=== PATIENT | female | born 1980 | race Caucasian/White ===

== ENCOUNTER 2018-05-27 15:20 | Emergency (ER) | payer SELFPAY ==
[~2018-05-27] VITALS: Ht 172.7 cm; Wt 77.1 kg
[~2018-05-27 15:20] MED LIST: ALPR.5T PO; HYDR-34 PO; SLEEP AID PO
[2018-05-27] MEDS ORDERED: ONDANSETRON 4 MG/2 ML (SDV) Z0FRAN IVP ONE (16:00)
[2018-05-27 16:11] LABS: BASOPHILS % (AUTO) 0 % (0-10); EOSINOPHILS % (AUTO) 0 % (0-10); HEMATOCRIT 37 % (35-52); HEMOGLOBIN 12.4 G/DL (11.5-16.0); LYMPHOCYTES # (AUTO) 1.7 X 10^3 (1.0-4.0); LYMPHOCYTES % (AUTO) 11 % (12-44); MEAN CORPUSCULAR HEMOGLOBIN 32 PG (25-34); MEAN CORPUSCULAR HGB CONC 34 G/DL (32-36); MEAN CORPUSCULAR VOLUME 95 FL (80-99); MEAN PLATELET VOLUME 9.1 FL (7.4-10.4); MONOCYTES # (AUTO) 1.9 X 10^3 (0.0-1.0); MONOCYTES % (AUTO) 13 % (0-12); NEUTROPHILS # (AUTO) 11.2 X 10^3 (1.8-7.8); NEUTROPHILS % (AUTO) 75 % (42-75); PLATELET COUNT 303 10^3/uL (130-400); RED BLOOD COUNT 3.86 10^6/uL (4.35-5.85); RED CELL DISTRIBUTION WIDTH 12.9 % (10.0-14.5); WHITE BLOOD COUNT 14.8 10^3/uL (4.3-11.0)
[2018-05-27 16:23] LABS: BILIRUBIN,URINE NEGATIVE (NEGATIVE); CLARITY,URINE CLEAR; COLOR,URINE YELLOW; GLUCOSE, URINE (UA) NEGATIVE (NEGATIVE); KETONES,URINE NEGATIVE (NEGATIVE); LEUKOCYTE ESTERASE ,URINE 1+ (NEGATIVE); NITRITE,URINE NEGATIVE (NEGATIVE); PH,URINE 7 (5-9); PROTEIN,URINE NEGATIVE (NEGATIVE); UROBILINOGEN,URINE NORMAL (NORMAL)
[2018-05-27 16:23] LABS: ALANINE AMINOTRANSFERASE 33 U/L (0-55); ALBUMIN 3.9 GM/DL (3.2-4.5); ALKALINE PHOSPHATASE 76 U/L (40-136); BILIRUBIN,TOTAL 0.3 MG/DL (0.1-1.0); BUN/CREATININE RATIO 19; CALCIUM 9.2 MG/DL (8.5-10.1); CARBON DIOXIDE 25 MMOL/L (21-32); CHLORIDE 102 MMOL/L (98-107); CREATININE SERUM 0.69 MG/DL (0.60-1.30); GFR ESTIMATED > 60; GLUCOSE 94 MG/DL (70-105); LIPASE 13 U/L (8-78); POTASSIUM 3.8 MMOL/L (3.6-5.0); SODIUM 138 MMOL/L (135-145); TOTAL PROTEIN 7.1 GM/DL (6.4-8.2)
[2018-05-27 16:25] LABS: BAND NEUTROPHILS 1 %; BASOPHILS % (MANUAL) 0 %; EOSINOPHILS % (MANUAL) 0 %; LYMPHOCYTES % (MANUAL) 18 %; MONOCYTES % (MANUAL) 3 %; NEUTROPHILS % (MANUAL) 78 %; RBC MORPH NORMAL
--- NOTE | 2018-05-27 16:28 | ED Abdominal Pain ---
General Chief Complaint: -Female Stated Complaint: B/P HIGH, STOMACH PAIN, RT SIDE PAIN Nursing Triage Note: Pt ambulated to rm 5 w/o difficulty. Pt reports R sided abdominal pain that begain Sat accompanied by fever. Pt c/o nausea but not vomiting. Pt reports painful urination. Pt reports BP dysregulation. Tylenol last taken at 1000 Sepsis Screen: No Definite Risk History of Present Illness Date Seen by Provider: May 27, 2018 Time Seen by Provider: 16:00 Initial Comments 37-year-old female presents for 3 day history of right sided abdominal pain with dysuria. She describes some nausea but no vomiting or diarrhea. She has a history of endometriosis and cholecystectomy. Timing/Duration: 3-4 Days Severity/Quality: Moderate Location: RLQ Radiation: No Radiation Associated Symptoms: No Back Pain, No Fever/Chills, No Fatigue; Nausea/Vomiting ; No Swelling/Mass in Abdomen, No Weakness Allergies and Home Medications Allergies Coded Allergies: No Known Drug Allergies (Unverified , 12/10/12) Home Medications Alprazolam 0.5 Mg Tablet, 1 TAB PO HS PRN, (Reported) Ciprofloxacin HCl 500 Mg Tablet, 500 MG PO BID Prescribed by: VIKTORIA SMITH on 05/27/181857 Hydrocodone Bit/Acetaminophen 1 Ea Tablet, 1-2 EA PO Q 4 - 6 HR PRN, (Reported) NEW PRESCRIPTION CALLED TO [facility] IN [facility] LAST DOSE 1TAB AT 3: 05 Tramadol HCl 50 Mg Tablet, 50 MG PO Q8H PRN for PAIN-MILD Prescribed by: VIKTORIA SMITH on 05/27/181857 [Sleep Aid] , 1 TAB PO HS, (Reported) Patient Home Medication List Home Medication List Reviewed: Yes Review of Systems Review of Systems Constitutional: no symptoms reported, see HPI Gastrointestinal: See HPI, Abdominal Pain, Nausea, Poor Appetite Genitourinary: See HPI, Burning; Denies Discharge, Denies Drainage, Denies Frequency, Denies Flank Pain, Denies Hematuria; Pain All Other Systems Reviewed Negative Unless Noted: Yes Past Zcfxugn-Bdfqjj-Iozoev Hx Past Med/Social Hx: Reviewed Nursing Past Med/Soc Hx, Reviewed and Corrections made Patient Social History Alcohol Use: Denies Use Recreational Drug Use: No Smoking Status: Current Everyday Smoker 2nd Hand Smoke Exposure: Yes Recent Foreign Travel: No Contact w/Someone Who Travel: No Recent Infectious Disease Expo: No Recent Hopitalizations: No Past Medical History Surgeries: Yes (brain (tumor, cysts)) Gallbladder Respiratory: No Cardiac: No 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 oz. 77.178278sw; BMI Method:Stated General Appearance: WD/WN, no apparent distress HEENT: PERRL/EOMI, normal ENT inspection, TMs normal, pharynx normal Neck: non-tender, full range of motion, supple, normal inspection Respiratory: chest non-tender, lungs clear, normal breath sounds Cardiovascular: normal peripheral pulses, regular rate, rhythm Gastrointestinal: normal bowel sounds, soft; No distended, No guarding, No rebound; tenderness (generalized); No hepatomegaly, No spleenomegaly; other ( negative Smith sign) Extremities: normal range of motion, non-tender, normal inspection, normal capillary refill Back: CVA tenderness (R) Neurologic/Psychiatric: no motor/sensory deficits, alert, normal mood/affect, oriented x 3 Skin: normal color, warm/dry; No jaundice Progress/Results/Core Measures Results/Orders Lab Results Laboratory Tests Test 05/27/18 15:40 05/27/18 15:45 Range/Units Urine Color YELLOW Urine Clarity CLEAR Urine pH 7 5-9 Urine Specific [place] 1.005 L 1.016-1.022 Urine Protein NEGATIVE NEGATIVE Urine Glucose (UA) NEGATIVE NEGATIVE Urine Ketones NEGATIVE NEGATIVE Urine Nitrite NEGATIVE NEGATIVE Urine Bilirubin NEGATIVE NEGATIVE Urine Urobilinogen NORMAL NORMAL MG/DL Urine Leukocyte Esterase 1+ H NEGATIVE Urine RBC (Auto) 3+ H NEGATIVE Urine RBC 0-2 /HPF Urine WBC 2-5 /HPF Urine Squamous Epithelial Cells 2-5 /HPF Urine Crystals NONE /LPF Urine Bacteria TRACE /HPF Urine Casts NONE /LPF Urine Mucus NEGATIVE /LPF Urine Culture Indicated NO Urine Test NEGATIVE NEGATIVE White Blood Count 14.8 H 4.3-11.0 10^3/uL Red Blood Count 3.86 L 4.35-5.85 10^6/uL Hemoglobin 12.4 11.5-16.0 G/DL Hematocrit 37 35-52 % Mean Corpuscular Volume 95 80-99 FL Mean Corpuscular Hemoglobin 32 25-34 PG Mean Corpuscular Hemoglobin Concent 34 32-36 G/DL Red Cell Distribution Width 12.9 10.0-14.5 % Platelet Count 303 130-400 10^3/uL Mean Platelet Volume 9.1 7.4-10.4 FL Neutrophils (%) (Auto) 75 42-75 % Lymphocytes (%) (Auto) 11 L 12-44 % Monocytes (%) (Auto) 13 H 0-12 % Eosinophils (%) (Auto) 0 0-10 % Basophils (%) (Auto) 0 0-10 % Neutrophils # (Auto) 11.2 H 1.8-7.8 X 10^3 Lymphocytes # (Auto) 1.7 1.0-4.0 X 10^3 Monocytes # (Auto) 1.9 H 0.0-1.0 X 10^3 Eosinophils # (Auto) 0.0 0.0-0.3 10^3/uL Basophils # (Auto) 0.0 0.0-0.1 10^3/uL Neutrophils % (Manual) 78 % Lymphocytes % (Manual) 18 % Monocytes % (Manual) 3 % Eosinophils % (Manual) 0 % Basophils % (Manual) 0 % Band Neutrophils 1 % Blood Morphology Comment NORMAL Sodium Level 138 135-145 MMOL/L Potassium Level 3.8 3.6-5.0 MMOL/L Chloride Level 102 98-107 MMOL/L Carbon Dioxide Level 25 21-32 MMOL/L Anion Gap 11 5-14 MMOL/L Blood Urea Nitrogen 13 7-18 MG/DL Creatinine 0.69 0.60-1.30 MG/DL Estimat Glomerular Filtration Rate > 60 BUN/Creatinine Ratio 19 Glucose Level 94 70-105 MG/DL Calcium Level 9.2 8.5-10.1 MG/DL Corrected Calcium 9.3 8.5-10.1 MG/DL Total Bilirubin 0.3 0.1-1.0 MG/DL Aspartate Amino Transf (AST/SGOT) 23 5-34 U/L Alanine Aminotransferase (ALT/SGPT) 33 0-55 U/L Alkaline Phosphatase 76 40-136 U/L Total Protein 7.1 6.4-8.2 GM/DL Albumin 3.9 3.2-4.5 GM/DL Lipase 13 8-78 U/L My Orders Orders - VIKTORIA SMITH DAVID Ondansetron Injection (Zofran Injectio (05/27/18 16:00) Cbc With Automated Diff (05/27/18 16:04) Comprehensive Metabolic Panel (05/27/18 16:04) Lipase (05/27/18 16:04) Ua Culture If Indicated (05/27/18 16:04) Hcg,Qualitative Urine (05/27/18 16:06) Manual Differential (05/27/18 15:45) Ketorolac Injection (Toradol Injection) (05/27/18 16:35) Ct Abd/Pelv W (Appendicitis) (05/27/18 17:14) Iohexol Injection (Omnipaque 350 Mg/Ml 1 (05/27/18 17:30) Contrast Received (Contrast Received) (05/27/18 17:30) Sodium Chloride Flush (Catheter Flush Sy (05/27/18 17:30) Ns (Ivpb) (Sodium Chloride 0.9%) (05/27/18 17:30) Saline Lock/Iv-Start (05/27/18 18:04) Ns Iv 1000 Ml (Sodium Chloride 0.9%) (05/27/18 18:04) Medications Given in ED Current Medications Medications Dose Ordered Sig/Johana Route Start Time Stop Time Status Last Admin Dose Admin Iohexol 100 ml ONCE ONCE IV 05/27/18 17:30 05/27/18 17:31 DC 05/27/18 17:25 100 ML Ondansetron HCl 4 mg ONCE ONCE IVP 05/27/18 16:00 05/27/18 16:01 DC 05/27/18 16:03 4 MG Sodium Chloride 10 ml NEEDED PRN IV 05/27/18 17:30 05/27/18 19:23 DC 05/27/18 17:25 10 ML Sodium Chloride 250 ml ONCE ONCE IV 05/27/18 17:30 12 17:31 DC 05/27/18 17:25 80 ML Vital Signs/I&O 18 05/27/18 15:34 19:20 Temp 98.2 98.9 Pulse 82 75 Resp 16 10 B/P (MAP) 120/73 (89) 119/72 (88) Pulse Ox 98 99 O2 Delivery Room Air Room Air Blood Pressure Mean: 89 Progress Progress Note : Time: 16:00 Progress Note Patient seen and evaluated, will obtain labs, Zofran 4 mg IV for nausea. 1700 WBC 14.8; remainder of labs and UA essentially normal. Discussed results with the patient, based on her elevated white count and continued right lower abdominal pain, we will complete a CT scan. She agreed with this plan of care. 174 CT negative for acute findings of the appendix, however changes in the kidneys compatible with pyelonephritis noted. Will give 1 L of IV fluids. Patient does report pain to be more tolerable. 183 discharge instructions and return precautions reviewed with the patient. All questions answered. Departure Impression Primary Impression: Urinary tract infection Qualified Codes: N10 - Acute pyelonephritis Disposition: HOME, SELF-CARE Condition: Improved Departure-Patient Inst. Decision time for Depature: 18:30 Referrals: [facility],LOCAL PHYSICIAN (PCP) Primary Care Physician GLORIA LANDAVERDE (Family) Primary Care Physician Patient Instructions: Urinary Tract Infection, Adult (DC) Add. Discharge Instructions: Follow-up with your primary care provider in 2-3 days if symptoms are not improving, sooner if they worsen. Increase water intake, one bottle every 2 hours while awake. Take antibiotic as prescribed. Empty bladder every 2 hours while awake. Take Tylenol 650 mg alternating with ibuprofen 600 mg every 4 hours for pain or fever. Take tramadol every 6-8 hours as needed for more severe pain. Return to emergency department for increased pain, fever greater than 101 not relieved by Tylenol and ibuprofen, or new problems. All discharge instructions reviewed with patient and/or family. Voiced understanding. Scripts Tramadol HCl (Tramadol HCl) 50 Mg Tablet 50 MG PO Q8H PRN for PAIN-MILD, #20 TAB 0 Refills Prov: VIKTORIA SMITH 05/27/18 Ciprofloxacin HCl (Cipro) 500 Mg Tablet 500 MG PO BID, #14 TAB 0 Refills Prov: VIKTORIA SMITH 05/27/18 VIKTORIA SMITH May 27, 2018 16:28
[2018-05-27 16:31] LABS: BACTERIA,URINE TRACE /HPF; RBC,URINE 0-2 /HPF
[2018-05-27] MEDS ORDERED: KETOROLAC 30 MG/ML VIAL IVP STA (16:35)
[2018-05-27] MEDS ORDERED: NS 250 ML (IVPB) BAG IV ONE (17:30)
[2018-05-27] MEDS ORDERED: RECEIVED CONTRAST (Hold Metformin) IV SCH (17:30)
[2018-05-27] MEDS ORDERED: IOHEXOL 350 MG/ML 100 ML (OMNIPAQUE 350) VIAL IV ONE (17:30)
[2018-05-27] MEDS ORDERED: CATHETER FLUSH 10 ML SYR IV PRN (17:30)
--- OUTSIDE RECORDS SUMMARY | 2018-05-27 17:31 | XMS REPORT ---
Author Author ADAM BARNES [facility] Address [address] [place] [address] Care Team Providers Care Contract Designer Name Role Phone KING ADAM Unavailable PROBLEMS Type Condition ICD9-CM Code PGF33-YI Code Onset Dates Condition Status SNOMED Code Problem Secondary hypertension I15.9 Active 24964160 Problem Dyspepsia R10.13 Active 350892412 Problem Chest pain, unspecified type R07.9 Active 36835630 Problem Intractable migraine without aura and with status migrainosus G43.011 Active 029251867 Problem Gastroesophageal reflux disease without esophagitis K21.9 Active 072863991 Problem Dizziness R42 Active 718327202 Problem Chronic nausea R11.0 Active 596514887 Problem Irregular menses N92.6 Active 256663114 Problem Well woman exam with routine gynecological exam Z01.419 Active 659394296 Problem Migraine aura without headache G43.109 Active 166886963 Problem History of benign brain tumor Z86.011 Active 755492178 Problem Shortness of breath R06.02 Active 270441824 Problem Anxiety about health F41.8 Active 964060119 Problem Essential hypertension I10 Active 93910962 Problem Anxiety F41.9 Active 38853764 Problem Chest discomfort R07.89 Active 644728907 Problem Nausea R11.0 Active 472536854 ALLERGIES No Known Allergies ENCOUNTERS Encounter Location Date Diagnosis [facility] [address], [place] [address] Nov, Vaginal discharge N89.8 ; Encounter for Depo-Provera contraception Z30.42 ; Encounter for initial prescription of injectable contraceptive Z30.013 and Candidiasis of genitalia in female B37.3 [facility] [id number], [place] [address] 28 Nov, 2018 Well woman exam with routine gynecological exam Z01.419 [facility] [id number] [place] [address] 31402- 6677 Nov, Well woman exam Z01.419 [facility] [id number] [place] [address]26 [address]1121 May, Intractable migraine without aura and with status migrainosus G43.011 and Vaginal discharge N89.8 [facility] [id number] [place] [address] 21881- 7054 Feb, [place] [id number] [place] [address] 85661- 5774 Jan, Anxiety about health F41.8 [place] [address] [address] Dec, [place] [id number] [place] [address] 07659- 3405 Dec, Essential hypertension I10 ; Anxiety about health F41.8 ; Migraine aura without headache G43.109 ; Gastroesophageal reflux disease without esophagitis K21.9 and Wheezing R06.2 [place] [id number] [place] [address] 59961- 3194 Dec, Anxiety F41.9 [place] [id number] [place] [address] 36851- 1972 October, [place] [id number] [place] [address] 46482- 0404 Sep, Anxiety F41.9 [place] [id number] [place] [address] 81010- 6726 Aug, Anxiety F41.9 [place] [id number] [place] [address] 45163- 4207 Jul, Secondary hypertension I15.9 and Gastroesophageal reflux disease without esophagitis K21.9 [place] [id number] [place] [address] 48499- 5235 Jun, Migraine aura without headache G43.109 ; Essential hypertension I10 ; Anxiety F41.9 ; Secondary hypertension I15.9 ; Anxiety about health F41.8 ; Gastroesophageal reflux disease without esophagitis K21.9 and Irregular menses N92.6 [place] [id number] [place] [address] 24371- 8968 Jun, Shortness of breath R06.02 [place] [id number] [place] [address] 92829- 2772 Jun, [facility] [address] [address] May, Sore throat J02.9 and Viral pharyngitis J02.[address] [address] Mar, [place] [id number] [place] [address] 36641- 3968 Mar, [address] [address] 3552 Mar, [id number] [place] [address] 07419- 3129 Mar, [address] [id number] [place] [address] 07391- 9994 Mar, [id number] [place] [address] 26471- 4915 Mar, Migraine aura without headache G43.109 ; Essential hypertension I10 ; History of benign brain tumor Z86.011 ; Anxiety F41.9 ; Secondary hypertension I15.9 ; Nausea R11.0 ; Chest discomfort R07.89 ; Anxiety about health F41.8 ; Shortness of breath R06.02 ; Dyspepsia R10.13 ; Dizziness R42 and 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 [facility] [place] [id number] [place] [address] 79817 -0875 Feb, Sore throat J02.9 and Acute maxillary sinusitis, recurrence not specified J01.00 [facility] [id number] [place] [address] 21754 -3491 21 Feb, 2016 Burning with urination R30.0 [facility] [address] [address] 4858 20 Feb, 2016 [facility] [address] 37285- 5567 19 Feb, 2016 [facility] [address] [address]- 7142 15 Feb, 2016 [facility] [address] 73834- 1233 13 Feb, 2016 [facility] [address] [address] 02 Feb, 2016 Sore throat J02.9 and Allergic rhinitis, unspecified allergic rhinitis trigger, unspecified rhinitis seasonality J30.9 [facility] [address] [address]16- 0636 Jan, [facility] [address] 88747- 4511 Jan, Well woman exam with routine gynecological exam Z01.419 ; Shortness of breath R06.02 and Anxiety about health F41.8 [place] [address] 90479- 3767 Jan, Anxiety F41.9 and Anxiety about health F41.8 [facility] [id number] [place] [address] 98566- 5054 Jan, Generalized anxiety disorder F41.1 [place] [id number] [place] [address] 77640- 9099 Jan, Chronic nausea R11.0 and Anxiety about health F41.8 [facility] [id number] [place] [address] 54051 -7565 Jan, Acute non-recurrent maxillary sinusitis J01.00 [facility] [address] [place] [address]- 6156 Jan, [facility] [id number] [place] [address] 75529- 7374 Jan, [facility] [id number] [place] [address] 37328- 1405 Jan, Chronic nausea R11.0 ; Dyspepsia R10.13 ; Dizziness R42 and Encounter for Depo-Provera contraception Z30.42 [facility] [id number] [place] [address] 75580- 1826 Jan, [facility] [address] 41117- 2988 Dec, [facility] [id number] [place] [address] 60287- 4431 Dec, [place] [id number] [place] [address] 04529- 3555 Dec, Essential hypertension I10 [facility] [id number] [place] [address] 98094- 0479 Dec, Chest discomfort R07.89 ; Essential hypertension I10 ; Anxiety about health F41.8 ; Shortness of breath R06.02 and History of benign brain tumor Z86.011 [facility] [id number] [place] [address] 74051 -1227 Dec, Anxiety F41.9 ; Chest pain, unspecified type R07.9 ; Secondary hypertension I15.9 and Nausea R11.0 [facility] [id number] [place] [address] 97984- 4206 Dec, [facility] [address] 35176- 4609 Nov, [facility] [id number] [place] [address] 86286- 9182 Nov, Essential hypertension I10 ; History of benign brain tumor Z86.011 and Migraine aura without headache G43.109 [place] [address], [place] [address] October, Essential hypertension I10 ; History of benign brain tumor Z86.011 and Headache, unspecified headache type R51 [facility] [address], [place] [address] October, [facility] [address] [place] [address] 37211- 3776 October, Elevated blood pressure I10 ; Encounter for Depo-Provera contraception Z30.42 ; Migraine aura without headache G43.109 and Encounter for surveillance of injectable contraceptive Z30.42 [facility] [id number] [place] [address] 83948- 8870 Jul, Encounter for Depo-Provera contraception Z30.42 [facility] [id number] [place] [address] 49693- 2421 Apr, Encounter for Depo-Provera contraception Z30.42 [facility] [id number] [place] [address] 62328- 5791 Apr, [facility] [id number] [place] [address] 80817- 8223 Mar, [facility] [id number] [place] [address] 48283- 4537 Feb, [facility] [id number] [place] [address] 80220- 8772 Feb, [facility] [id number] [place] [address] 19872- 1021 Feb, Sore throat 462 [facility] [id number] [place] [address] 04521- 4392 Jan, Encounter for Depo-Provera contraception V25.49 [facility] [address] [place] [address] 09376- 0910 Jan, [facility] [id number] [place] [address] 55460- 9175 Dec, Adjustment reaction to medical therapy 309.89 and Post- nasal drip 784.91 [place] [id number] [place] [address] 53514- 7750 Dec, Routine health maintenance V70.0 ; Lumbago 724.2 ; Migraine 346.90 ; Acne cystica 706.1 and Tingling of skin 782.[address] [address] Dec, Dental examination V72.[address] [address] Nov, Dental examination V72.[address] [address]- 8076 Nov, Routine gynecological examination V72.31 ; Pap test, as part of routine gynecological examination V76.2 ; Breast cancer screening V76.10 and Encounter for initial prescription of injectable contraceptive V25.[address] [address] October, Dental examination V72.[address] [address] October, Dental examination V72.2 [place] [id number] [place] [address] 40502- 8568 Sep, [place] [id number] [place] [address] 63586- 6865 Sep, [place] [id number] [place] [address] 42289- 8473 Jul, [place] [id number] [place] [address] 66035- 2730 Jul, [place] [id number] [place] [address] 86153- 1102 Jan, [facility] [id number] [place] [address] 65982- 3169 Jan, [facility] [place] [facility] [address] [id number] [place] [address]- 4548 Jan, [facility] [place] [facility] [address] [id number] [place] [address]- 9880 Jan, [facility] [place] [facility] [address] [id number] [place] [address]- 7997 October, [facility] [place] [facility] [address] [id number] [place] [address]- 0935 October, [facility] [place] [facility] [address] [id number] [place] [address]- 8237 Jul, [facility] [place] [facility] [address] [id number] [place] [address]- 8265 Jul, [facility] [place] [facility] [address] [id number] [place] [address]- 3309 Jul, [facility] [place] [facility] [address] [id number] [place] [address]- 4968 Jul, [facility] [place] [facility] [address] [id number] [place] [address]- 3505 Jul, [facility] [place] [facility] [address] [id number] [place] [address]- 8974 Jul, [facility] [place] [facility] [address] [id number] [place] [address]- 5200 14 Jul, 2013 [facility] [place] [facility] [address] [id number] [place] [address]- 8305 14 Jul, 2013 [facility] [place] [facility] [address] [id number] [place] [address]- 3639 13 Jul, 2013 [facility] [place] [facility] [address] [id number] [place] [address]- 5672 10 Jul, 2013 [facility] [place] [facility] [address] [id number] [place] [address]- 9235 10 Jul, 2013 [facility] [place] [facility] [address] [id number] [place] [address]- 3699 27 Feb, 2012 [facility] [address] [id number] [place] [address]- 0436 20 Feb, 2012 [facility] [place] [facility] [address] [id number] [place] [address]- 6636 17 Feb, 2013 [facility] [address] [id number] [place] [address]- 0386 16 Feb, 2013 [facility] [place] [facility] [address] [id number] [place] [address]- 4456 13 Jan, 2013 [facility] [address] [id number] [place] [address]- 8884 20 Nov, 2012 [facility] [place] [facility] [address] [id number] [place] [address]- 8807 18 May, 2012 [facility] [address] [id number] [place] [address]- 7844 18 May, 2012 [facility] [address] [id number] [place] [address]- 9153 May, [facility] [address] [id number] [place] 6110 May, [facility] [address] [id number] [place] 4981 May, [facility] [address] [id number] [place] [address]- 8436 May, [facility] [place] [facility] [address] [id number] [place] [address]- 2541 May, [facility] [place] [facility] [address] [id number] [place] [address]- 9202 Apr, [facility] [place] [facility] [address] [id number] [place] [address]- 2436 Apr, [facility] [address] [id number] [place] [address]- 5266 October, [facility] [id number], [place] [address]- 2546 Sep, [facility] [address], [place] [address]- 2546 Aug, [facility] [address], [place] [address]- 2546 Jul, [facility] [address] [address]- 2546 Jul, [facility] [address], [place] [address]- 2546 Jul, [facility] [address], [place] [address]- 2546 May, [facility] [address], [place] [address]- 2546 Feb, [facility] [address], [place] [address]- 2546 Apr, [facility] [address], [place] [address]- 2546 Apr, [facility] [id number], [place] [address]- 2546 Mar, [facility] [id number], [place] [address]- 2546 Mar, IMMUNIZATIONS Vaccine Route Administration Date Status DEPO PROVERA (150 MG/ML) IM Intramuscular December 18, 2017 Administered SOCIAL HISTORY Never Assessed REASON FOR VISIT Yeast infection, possible , vaginal discharge with some odor , vaginal irritation, low back pain and burning with urination x 4 days -- bertin ramos, patient is requesting test PLAN OF CARE Activity Details Follow Up 7-10 days if not better Reason:vaginal discharge VITAL SIGNS Height 68 in 2017-12-18 Weight 169.0 lbs 2017-12-18 Temperature 98.0 degrees Fahrenheit 2017-12-18 Heart Rate 70 bpm 2017-12-18 Respiratory Rate 18 2017-12-18 BMI 25.69 kg/m2 2017-12-18 Blood pressure systolic 130 mmHg 2017-12-18 Blood pressure diastolic 82 mmHg 2017-12-18 MEDICATIONS Medication Instructions Dosage Frequency Start Date End Date Duration Status Diflucan 150 MG Orally one time 1 tablet Nov, 1 dose Active Vitamin C Adult Gummies 125 MG Active Zithromax 1 GM Active Probiotic - Active Trazodone HCl 150 MG Orally Once a day 1 tablet at bedtime as needed 24h Active Minocycline HCl 100 MG Orally every 12 hrs 1 capsule 12h Active Vitamin D-Vitamin K - Active Super B Complex Active Multivitamin Adult - Active Ondansetron 4 MG sublingual 1 tablet twice daily as needed (every 6 hours) DISSOLVE ONE TABLET BY MOUTH Active Xanax 0.5 MG Orally Twice a day 1 tablet 12h 28 days Active FUENTES-e 400 MG Active RESULTS No Results PROCEDURES Procedure Date Ordered Result Body Site URINE CULTURE/COLONY COUNT December 18, 2017 No Charge December 18, 2017 DEPO PROVERA (150 MG/ML) December 18, 2017 THER/PROPH/DIAG INJ, SC/IM December 18, 2017 INSTRUCTIONS MEDICATIONS ADMINISTERED No Known Medications MEDICAL (GENERAL) HISTORY Type Description Date Medical History endometriosis Medical History HPV Medical History BRAIN TUMOR (benign) AND 2 CYST 1997 Medical History MIGRAINES Medical History depression Medical History anxiety Medical History [place] Medical History Hypertension Medical History Lyme's Disease- co infections- bartonella and babesia Surgical History cholecystectomy 11/2012 Surgical History neurological surgery for bening brain cysts and tumor, requires MRI q 5 yrs 1997 Surgical History section X1 Surgical History breast augmentation 2009 Surgical History dilatation and curettage Hospitalization History hospitalized for surgeries only
--- OUTSIDE RECORDS SUMMARY | 2018-05-27 17:31 | XMS REPORT ---
Author Author TAL PRUETT [facility] Address [address] [place] [address] Care Team Providers Care Veterinary Medical Officer Name Role Phone TAL PRUETT Unavailable PROBLEMS Type Condition ICD9-CM Code [id number] Code Onset Dates Condition Status SNOMED Code Problem Secondary hypertension I15.9 Active 16329485 Problem Dyspepsia R10.13 Active 923322005 Problem Chest pain, unspecified type R07.9 Active 67128511 Problem Intractable migraine without aura and with status migrainosus G43.011 Active 376013360 Problem Gastroesophageal reflux disease without esophagitis K21.9 Active 293172158 Problem Dizziness R42 Active 178456198 Problem Chronic nausea R11.0 Active 966334348 Problem Irregular menses N92.6 Active 292376303 Problem Well woman exam with routine gynecological exam Z01.419 Active 937020429 Problem Migraine aura without headache G43.109 Active 262379855 Problem History of benign brain tumor Z86.011 Active 487715880 Problem Shortness of breath R06.02 Active 579030721 Problem Anxiety about health F41.8 Active 365529202 Problem Essential hypertension I10 Active 20774932 Problem Anxiety F41.9 Active 62281931 Problem Chest discomfort R07.89 Active 877392310 Problem Nausea R11.0 Active 138274495 ALLERGIES No Information ENCOUNTERS Encounter Location Date Diagnosis [facility] [address] [facility] [id number] [address] Nov, Encounter for Depo-Provera contraception Z30.42 ; Vaginal discharge N89.8 ; Encounter for initial prescription of injectable contraceptive Z30.013 and Candidiasis of genitalia in female B37.3 [facility] [address] [facility] [id number] [address] Nov, Well woman exam with routine gynecological exam Z01.419 [facility] [address] [place] [id number] [place] [address] 04334- 0991 Nov, Well woman exam Z01.419 [facility] [id number] [place] [address] 80188 -0401 May, Intractable migraine without aura and with status migrainosus G43.011 and Vaginal discharge N89.8 [facility] [id number] [place] [address] 43184- 2102 Feb, [facility] [id number] [place] [address] 69767- 7302 Jan, Anxiety about health F41.8 [place] [address] [address]476- 6960 Dec, [place] [address] [address] [id number] [place] [address] 73186- 4984 Dec, Essential hypertension I10 ; Anxiety about health F41.8 ; Migraine aura without headache G43.109 ; Gastroesophageal reflux disease without esophagitis K21.9 and Wheezing R06.2 [place] [address] [address] [id number] [place] [address] 36697- 5739 Dec, Anxiety F41.9 [place] [address] [id number] [place] [address] 36593- 3162 October, [place] [address] [id number] [place] [address] 71326- 3284 Sep, Anxiety F41.9 [place] [id number] [place] [address] 27444- 9489 Aug, Anxiety F41.9 [place] [address] 54549- 7074 Jul, Secondary hypertension I15.9 and Gastroesophageal reflux disease without esophagitis K21.9 [place] [id number] [place] [address] 98653- 9520 Jun, Migraine aura without headache G43.109 ; Essential hypertension I10 ; Anxiety F41.9 ; Secondary hypertension I15.9 ; Anxiety about health F41.8 ; Gastroesophageal reflux disease without esophagitis K21.9 and Irregular menses N92.6 [place] [address] [address] [id number] [place] [address] 61022- 2414 Jun, Shortness of breath R06.02 [place] [id number] [place] [address] 31758- 3306 Jun, [facility] [place] [id number] [place] [address] 79244 -9694 May, Sore throat J02.9 and Viral pharyngitis J02.9 [place] [address] 14803- 7455 Mar, [place] [address] 74959- 1685 Mar, [place] [address] 53954- 5505 Mar, [place] [address] [address] [id number] [place] [address] 39725- 5042 Mar, [place] [address] [id number] [place] [address] 78496- 6813 Mar, [place] [id number] [place] [address] 08411- 4385 Mar, Migraine aura without headache G43.109 ; Essential hypertension I10 ; History of benign brain tumor Z86.011 ; Anxiety F41.9 ; Secondary hypertension I15.9 ; Nausea R11.0 ; Chest discomfort R07.89 ; Anxiety about health F41.8 ; Shortness of breath R06.02 ; Dyspepsia R10.13 ; Dizziness R42 and 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 [facility] [id number] [place] [address] 20107 -9766 Feb, Sore throat J02.9 and Acute maxillary sinusitis, recurrence not specified J01.00 [facility] [id number] [place] [address] 19130 -4008 21 Feb, 2016 Burning with urination R30.0 [facility] [id number] [place] [address] 33484- 4877 20 Feb, 2016 [facility] [id number] [place] [address] 84558- 1127 19 Feb, 2016 [facility] [address] 07696- 8415 15 Feb, 2016 [facility] [address] 70854- 3615 13 Feb, 2016 [facility] [id number] [place] [address] 02369 -5206 02 Feb, 2016 Sore throat J02.9 and Allergic rhinitis, unspecified allergic rhinitis trigger, unspecified rhinitis seasonality J30.9 [facility] [id number] [place] [address] 33315- 3579 Jan, [facility] [id number] [place] [address] 06232- 6057 Jan, Well woman exam with routine gynecological exam Z01.419 ; Shortness of breath R06.02 and Anxiety about health F41.8 [place] [id number] [place] [address] 24596- 1334 Jan, Anxiety F41.9 and Anxiety about health F41.8 [facility] [id number] [place] [address] 87287- 7243 Jan, Generalized anxiety disorder F41.1 [place] [address] [address] [id number] [place] [address] 90946- 5272 Jan, Chronic nausea R11.0 and Anxiety about health F41.8 [facility] [id number] [place] [address] 65257 -4932 Jan, Acute non-recurrent maxillary sinusitis J01.00 [facility] [address] [id number] [address] 5[address] Jan, [facility] [id number] [place] [address] 96404- 9830 Jan, [facility] [id number] [place] [address] 02289- 2846 Jan, Chronic nausea R11.0 ; Dyspepsia R10.13 ; Dizziness R42 and Encounter for Depo-Provera contraception Z30.42 [facility] [id number] [place] [address] 05384- 5389 Jan, [facility] [address] 38035- 6630 Dec, [facility] [id number] [place] [address] 27762- 0297 Dec, [place] [id number] [place] [address] 78983- 7530 Dec, Essential hypertension I10 [facility] [id number] [place] [address] 20290- 8710 Dec, Chest discomfort R07.89 ; Essential hypertension I10 ; Anxiety about health F41.8 ; Shortness of breath R06.02 and History of benign brain tumor Z86.011 [facility] [address] [place] [address] 94267 -4993 Dec, Anxiety F41.9 ; Chest pain, unspecified type R07.9 ; Secondary hypertension I15.9 and Nausea R11.0 [facility] [id number] [place] [address] 53962- 3612 Dec, [facility] [id number] [place] [address] 38803- 1257 Nov, [facility] [address] [place] [address] 02157- 6341 Nov, Essential hypertension I10 ; History of benign brain tumor Z86.011 and Migraine aura without headache G43.109 [facility] [address] [place] [id number] [address] October, Essential hypertension I10 ; History of benign brain tumor Z86.011 and Headache, unspecified headache type R51 [facility] [address] [address] 8065 October, [facility] [id number] [place] [address] 51915- 6020 October, Elevated blood pressure I10 ; Encounter for Depo-Provera contraception Z30.42 ; Migraine aura without headache G43.109 and Encounter for surveillance of injectable contraceptive Z30.42 [facility] [id number] [place] [address] 79309- 7614 Jul, Encounter for Depo-Provera contraception Z30.42 [facility] [id number] [place] [address] 62959- 9910 Apr, Encounter for Depo-Provera contraception Z30.42 [facility] [id number] [place] [address] 04650- 5825 Apr, [facility] [id number] [place] [address] 59275- 3993 Mar, [facility] [id number] [place] [address] 97627- 2465 Feb, [facility] [id number] [place] [address] 29307- 1204 Feb, [facility] [id number] [place] [address] 41811- 2906 Feb, Sore throat 462 [facility] [id number] [place] [address] 75480- 1600 Jan, Encounter for Depo-Provera contraception V25.49 [facility] [id number] [place] [address] 49964- 8331 Jan, [facility] [address] [id number] [place] [address] 60780- 4063 Dec, Adjustment reaction to medical therapy 309.89 and Post- nasal drip 784.91 [place] [id number] [place] [address] 98565- 2344 Dec, Routine health maintenance V70.0 ; Lumbago 724.2 ; Migraine 346.90 ; Acne cystica 706.1 and Tingling of skin 782.[address] [address] Dec, Dental examination V72.[address] [address] Nov, Dental examination V72.2 [place] [id number] [place] [address] 58638- 5506 Nov, Routine gynecological examination V72.31 ; Pap test, as part of routine gynecological examination V76.2 ; Breast cancer screening V76.10 and Encounter for initial prescription of injectable contraceptive V25.[address] [address] October, Dental examination V72.[address] [address] October, Dental examination V72.2 [place] [address] [place] [address] 46828- 6669 Sep, [place] [id number] [place] [address] 47905- 6892 Sep, [place] [address] [id number] [place] [address] 18231- 3464 Jul, [place] [address] [address] [id number] [place] [address] 48479- 8302 Jul, [place] [address] [address] [id number] [place] [address] 43453- 9299 Jan, [place] [address] [id number] [place] [address] 70681- 7935 Jan, [facility] [place] [facility] [address] [id number] [place] [address]- 9758 Jan, [facility] [place] [facility] [address] [id number] [place] [address]- 0881 Jan, [facility] [place] [facility] [address] [id number] [place] [address]- 1521 October, [facility] [place] [facility] [address] [id number] [place] [address]- 2921 October, [facility] [place] [facility] [address] [id number] [place] [address]- 1455 Jul, [facility] [place] [facility] [address] [id number] [place] [address]- 9019 Jul, [facility] [place] [facility] [address] [id number] [place] [address]- 2148 Jul, [facility] [place] [facility] [address] [id number] [place] [address]- 0193 Jul, [facility] [place] [facility] [address] [id number] [place] [address]- 7310 Jul, [facility] [place] [facility] [address] [id number] [place] [address]- 1620 Jul, [facility] [place] [facility] [address] [id number] [place] [address]- 9125 Jul, [facility] [place] [facility] [address] [id number] [place] [address]- 4448 Jul, [facility] [place] [facility] [address] [id number] [place] [address]- 6348 Jul, [facility] [place] [facility] [address] [id number] [place] [address]- 4971 Jul, [facility] [place] [facility] [address] [id number] [place] [address]- 5308 Jul, [facility] [place] [facility] [address] [id number] [place] [address]- 0954 27 Feb, 2012 [facility] [address] [id number] [place] [address]- 1856 20 Feb, 2013 [facility] [address] [id number] [place] [address] 2546 17 Feb, 2013 [facility] [address] [id number] [place] [address]- 1256 16 Feb, 2013 [facility] [address] [id number] [place] [address]- 8780 13 Jan, 2013 [facility] [address] [id number] [place] [address]- 0953 20 Nov, 2012 [facility] [address] [id number] [place] [address]- 7403 18 May, 2012 [facility] [address] [id number] [place] [address]- 1398 18 May, 2012 [facility] [address] [id number] [place] [address]- 2460 May, [facility] [address] [id number] [place] [address]- 8691 May, [facility] [address] [id number] [place] [address]- 8592 May, [facility] [address] [id number] [place] [address]- 5813 May, [facility] [address] [id number] [place] [address]- 7846 May, [facility] [address] [id number] [place] [address]- 2546 Apr, [facility] [address] [id number] [place] [address]- 2546 Apr, [facility] [address] [id number] [place] [address]- 2166 October, [facility] [address] [address]- 0496 Sep, [facility] [address] [address]- 2546 Aug, [facility] [address] [address]- 2546 Jul, [facility] [id number] [place] [address] 73912- 2546 Jul, [facility] [address] [place] [address] 80903- 2546 Jul, [facility] [id number] [place] [address] 04658- 2546 May, [facility] [id number] [place] [address] 30433- 2546 Feb, [facility] [id number] [place] [address] 25672- 2546 Apr, [facility] [address] [place] [address] 10775- 9996 Apr, [facility] [address] [address]- 0316 Mar, [facility] [address] [address]- 2546 Mar, IMMUNIZATIONS No Known Immunizations SOCIAL HISTORY Never Assessed REASON FOR VISIT Recollect Lab PLAN OF CARE VITAL SIGNS MEDICATIONS No Known Medications RESULTS No Results PROCEDURES No Known procedures INSTRUCTIONS MEDICATIONS ADMINISTERED No Known Medications MEDICAL [...] and tumor, requires MRI q 5 yrs 1998 Surgical History section X1 Surgical History breast augmentation 2009 Surgical History dilatation and curettage Hospitalization History hospitalized for surgeries only
--- OUTSIDE RECORDS SUMMARY | 2018-05-27 17:32 | XMS REPORT ---
Author Author GLORIA LANDAVERDE Organization [employer] Address Unknown Phone Unavailable Care Team Providers Care Stitching Machine Operator Name Role Phone GLORIA LANDAVERDE CP Unavailable Allergies No Known Allergies Problems Problem Type Condition Code Onset Dates Condition Status Problem Shortness of breath R06.02 Active Problem Chest discomfort R07.89 Active Problem Anxiety about health F41.8 Active Problem Dyspepsia R10.13 Active Problem Dizziness R42 Active Problem Chronic nausea R11.0 Active Problem Secondary hypertension I15.9 Active Problem Nausea R11.0 Active Problem Anxiety F41.9 Active Problem Chest pain, unspecified type R07.9 Active Problem Migraine aura without headache G43.109 Active Problem History of benign brain tumor Z86.011 Active Problem Essential hypertension I10 Active Medications No Known Medications Results No Known Results Summary Purpose [employer] Submission
--- OUTSIDE RECORDS SUMMARY | 2018-05-27 17:32 | XMS REPORT ---
Author Author JOAQUIN NOLAN Organization [employer] Address Unknown Phone Unavailable Care Team Providers Care Military Analyst Name Role Phone JOAQUIN NOLAN CP Unavailable Allergies, Adverse Reactions, Alerts Substance Reaction Event Type N.K.D.A. Info Not Available Non Drug Allergy Problems Problem Type Condition Code Onset Dates Condition Status Problem Anxiety about health F41.8 Active Problem Nausea R11.0 Active Problem Chest discomfort R07.89 Active Problem Chronic nausea R11.0 Active Problem Dyspepsia R10.13 Active Problem Well woman exam with routine gynecological exam Z01.419 Active Problem Chest pain, unspecified type R07.9 Active Problem Secondary hypertension I15.9 Active Problem Dizziness R42 Active Problem Anxiety F41.9 Active Assessment Anxiety about health F41.8 Active Problem Migraine aura without headache G43.109 Active Problem History of benign brain tumor Z86.011 Active Assessment Shortness of breath R06.02 Active Problem Essential hypertension I10 Active Assessment Well woman exam with routine gynecological exam Z01.419 Active Problem Shortness of breath R06.02 Active Medications Medication Code System Code Instructions Start Date End Date Status Dosage Rexulti [facility] [address]-70 0.5 MG Orally Once a day x 7 days, then 1mg daily x 7 days Feb 18, 2016 1 tablet Procedures Procedure Coding System Code Date SPECIMEN HANDLING CPT-4 61413 Feb 18, 2016 CULTURE, BACTERIA, OTHER CPT-4 31902 Feb 18, 2016 Office Visit, Est Pt., Level 4 CPT-4 80898 Feb 18, 2016 TRICHOMONAS ASSAY W/OPTIC CPT-4 82876 Feb 18, 2016 DÍAZ VAG, DNA, DIR PROBE CPT-4 42373 Feb 18, 2016 No Charge CPT-4 14516 Feb 18, 2016 Vital Signs Date/Time: Feb 18, 2016 Cardiac Monitoring Heart Rate 88 bpm Weight 205.0 lbs Height 68 in BMI 31.17 Index Blood Pressure Diastolic 76 mmHg Blood Pressure Systolic 143 mmHg Results No Known Results Summary Purpose [employer] Submission
--- OUTSIDE RECORDS SUMMARY | 2018-05-27 17:32 | XMS REPORT ---
Author GARRETT Peter Organization [employer] Address Unknown Phone Unavailable Care Team Providers Care Sign Wirer Name Role Phone GARRETT HERNDON CP Unavailable Allergies No Known Allergies Problems Problem Type Condition Code Onset Dates Condition Status Problem Lumbago 724.2 Active Problem Migraine 346.90 Active Problem Adjustment reaction to medical therapy 309.89 Active Problem Routine health maintenance V70.0 Active Assessment Encounter for Depo-Provera contraception Z30.42 Active Medications No Known Medications Procedures Procedure Coding System Code Date DEPO PROVERA (150 MG/ML) CPT-4 J1050 Aug 03, 2015 THER/PROPH/DIAG INJ, SC/IM CPT-4 63885 Aug 03, 2015 URINE TEST CPT-4 91225 Aug 03, 2015 Results No Known Results Summary Purpose [employer] Submission
--- OUTSIDE RECORDS SUMMARY | 2018-05-27 17:32 | XMS REPORT ---
Author KIKI Pedraza Organization [employer] Address Unknown Phone Unavailable Care Team Providers Care A[employer]is Operations Specialist Name Role Phone KIKI HUANG CP Unavailable Allergies No Known Allergies Problems Problem Type Condition Code Onset Dates Condition Status Problem Lumbago 724.2 Active Problem Migraine 346.90 Active Problem Adjustment reaction to medical therapy 309.89 Active Problem Routine health maintenance V70.0 Active Medications No Known Medications Results No Known Results Summary Purpose [employer] Submission
--- OUTSIDE RECORDS SUMMARY | 2018-05-27 17:32 | XMS REPORT ---
Author KIKI Pedraza [facility] [employer] Address Unknown Phone Unavailable Care Team Providers Care Airfield Engineer Officer Name Role Phone KIKI HUANG CP Unavailable [...] Date DEPO PROVERA (150 MG/ML) CPT-4 J1050 May 14, 2015 THER/PROPH/DIAG INJ, SC/IM CPT-4 64692 May 14, 2015 URINE TEST CPT-4 39380 May 14, 2015 Results Name Result Date Reference Range Unit Abnormality Flag TEST, URINE (IN HOUSE) Summary Purpose [employer] Submission
--- OUTSIDE RECORDS SUMMARY | 2018-05-27 17:32 | XMS REPORT ---
Author Author TAL PRUETT Organization [facility] Address [address] [place] [address] Care Team Providers Care Wastewater Treatment [employer] Supervisor Name Role Phone TAL PRUETT Unavailable PROBLEMS Type Condition ICD9-CM Code LFU81-PU Code Onset Dates Condition Status SNOMED Code Problem Secondary hypertension I15.9 Active 70405331 Problem Dyspepsia R10.13 Active 871774822 Problem Chest pain, unspecified type R07.9 Active 55666612 Problem Intractable migraine without aura and with status migrainosus G43.011 Active 152318309 Problem Gastroesophageal reflux disease without esophagitis K21.9 Active 992198494 Problem Dizziness R42 Active 670559724 Problem Chronic nausea R11.0 Active 001111941 Problem Irregular menses N92.6 Active 974404580 Problem Well woman exam with routine gynecological exam Z01.419 Active 995236578 Problem Migraine aura without headache G43.109 Active 897844026 Problem History of benign brain tumor Z86.011 Active 308511845 Problem Shortness of breath R06.02 Active 453685032 Problem Anxiety about health F41.8 Active 448847320 Problem Essential hypertension I10 Active 36327560 Problem Anxiety F41.9 Active 87883544 Problem Chest discomfort R07.89 Active 167458733 Problem Nausea R11.0 Active 980183743 ALLERGIES No Known Allergies ENCOUNTERS Encounter Location Date Diagnosis [facility] [address] [facility] [id number] [address] Nov, Encounter for Depo-Provera contraception Z30.42 ; Vaginal discharge N89.8 ; Encounter for initial prescription of injectable contraceptive Z30.013 and Candidiasis of genitalia in female B37.3 [facility] [address] [facility] [id number], [place] [address] Nov, Well woman exam with routine gynecological exam Z01.419 [facility] [id number] [place] [address] 37223- 6999 Nov, Well woman exam Z01.419 [facility] IN [facility] [id number] [place] [address]32 [address]3033 May, Intractable migraine without aura and with status migrainosus G43.011 and Vaginal discharge N89.8 [facility] [id number] [place] [address] 70660- 9943 Feb, [facility] [id number] [place] [address] 60935- 1970 Jan, Anxiety about health F41.8 [facility] [id number] [place] [address] 89134- 9387 Dec, [facility] [id number] [place] [address] 92583- 6860 Dec, Essential hypertension I10 ; Anxiety about health F41.8 ; Migraine aura without headache G43.109 ; Gastroesophageal reflux disease without esophagitis K21.9 and Wheezing R06.2 [facility] [id number] [place] [address] 32633- 4886 Dec, Anxiety F41.9 [facility] [id number] [place] [address] 98476- 4481 October, [facility] [id number] [place] [address] 55755- 2248 Sep, Anxiety F41.9 [facility] [id number] [place] [address] 76854- 6914 Aug, Anxiety F41.9 [place] [address] 08241- 0637 Jul, Secondary hypertension I15.9 and Gastroesophageal reflux disease without esophagitis K21.9 [facility] [id number] [place] [address] 24333- 4203 Jun, Migraine aura without headache G43.109 ; Essential hypertension I10 ; Anxiety F41.9 ; Secondary hypertension I15.9 ; Anxiety about health F41.8 ; Gastroesophageal reflux disease without esophagitis K21.9 and Irregular menses N92.6 [facility] [facility] [id number] [place] [address] 99046- 9007 Jun, Shortness of breath R06.02 [facility] [id number] [place] [address] 03587- 4062 Jun, [facility] WALK IN [facility] [address] [address] May, Sore throat J02.9 and Viral pharyngitis J02.9 [place] [address] 99029- 1335 Mar, [facility] [facility] [address] 02588- 6066 Mar, [facility] [address] 78974- 5349 Mar, [facility] [facility] [address] 53663- 2546 Mar, [facility] [id number] [place] [address] 37114- 8679 Mar, [facility] [id number] [place] [address] 70212- 0182 Mar, Migraine aura without headache G43.109 ; Essential hypertension I10 ; History of benign brain tumor Z86.011 ; Anxiety F41.9 ; Secondary hypertension I15.9 ; Nausea R11.0 ; Chest discomfort R07.89 ; Anxiety about health F41.8 ; Shortness of breath R06.02 ; Dyspepsia R10.13 ; Dizziness R42 and 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 [facility]ALK IN [facility] [id number] [place] [address] 61612 -1788 Feb, Sore throat J02.9 and Acute maxillary sinusitis, recurrence not specified J01.00 [facility] [id number] [place] [address] 08189 -2034 21 Feb, 2016 Burning with urination R30.0 [facility] [id number] [place] [address] 98640- 7626 20 Feb, 2016 [facility] [address] 17350- 0055 19 Feb, 2016 [facility] [address] 87932- 6294 15 Feb, 2016 [facility] [address] 38557- 1214 13 Feb, 2016 [facility]ALK IN [facility] [id number] [place] [address] 34347 -3050 02 Feb, 2016 Sore throat J02.9 and Allergic rhinitis, unspecified allergic rhinitis trigger, unspecified rhinitis seasonality J30.9 [facility] [id number] [place] [address] 66064- 9852 Jan, [facility] [id number] [place] [address] 75931- 4461 Jan, Well woman exam with routine gynecological exam Z01.419 ; Shortness of breath R06.02 and Anxiety about health F41.8 [facility] [id number] [place] [address] 90853- 8001 Jan, Anxiety F41.9 and Anxiety about health F41.8 [facility] [id number] [place] [address] 30699- 8026 Jan, Generalized anxiety disorder F41.1 [facility] [id number] [place] [address] 48558- 2842 Jan, Chronic nausea R11.0 and Anxiety about health F41.8 [facility] [id number] [place] [address] 61439 -8616 Jan, Acute non-recurrent maxillary sinusitis J01.00 [facility] [id number] [place] [address] 42086- 9893 Jan, [facility] [id number] [place] [address] 38169- 2368 Jan, [facility] [id number] [place] [address] 42812- 4322 Jan, Chronic nausea R11.0 ; Dyspepsia R10.13 ; Dizziness R42 and Encounter for Depo-Provera contraception Z30.42 [facility] [id number] [place] [address] 58450- 1432 Jan, [facility] [address] 05782- 8014 Dec, [facility] [id number] [place] [address] 11157- 1862 Dec, [facility] [facility] [id number] [place] [address] 15907- 2556 Dec, Essential hypertension I10 [facility] [id number] [place] [address] 99295- 0640 Dec, Chest discomfort R07.89 ; Essential hypertension I10 ; Anxiety about health F41.8 ; Shortness of breath R06.02 and History of benign brain tumor Z86.011 [facility] WALK IN [facility] [address] [place] [address] 94283 -2572 Dec, Anxiety F41.9 ; Chest pain, unspecified type R07.9 ; Secondary hypertension I15.9 and Nausea R11.0 [facility] [id number] [place] [address] 20520- 6329 Dec, [facility] [id number] [place] [address] 30663- 9360 Nov, [facility] [id number] [place] [address] 09915- 4042 Nov, Essential hypertension I10 ; History of benign brain tumor Z86.011 and Migraine aura without headache G43.109 [facility] [address] [id number] [address] October, Essential hypertension I10 ; History of benign brain tumor Z86.011 and Headache, unspecified headache type R51 [facility] [address] [address] 388[address] October, [facility] [id number] [place] [address] 79266- 8169 October, Elevated blood pressure I10 ; Encounter for Depo-Provera contraception Z30.42 ; Migraine aura without headache G43.109 and Encounter for surveillance of injectable contraceptive Z30.42 [facility] [id number] [place] [address] 66576- 2372 Jul, Encounter for Depo-Provera contraception Z30.42 [facility] [id number] [place] [address] 86982- 9615 Apr, Encounter for Depo-Provera contraception Z30.42 [facility] [id number] [place] [address] 01279- 8593 Apr, [facility] [id number] [place] [address] 74351- 0092 Mar, [facility] [address] [place] [address] 60224- 7392 Feb, [facility] [id number] [place] [address] 22182- 0776 Feb, [facility] [id number] [place] [address] 91878- 7140 Feb, Sore throat 462 [facility] [id number] [place] [address] 96076- 5472 Jan, Encounter for Depo-Provera contraception V25.49 [facility] [address] [place] [address] 78167- 0968 Jan, [facility] [place] [id number] [place] [address] 67038- 9418 Dec, Adjustment reaction to medical therapy 309.89 and Post- nasal drip 784.91 [address] [id number] [place] [address] 05868- 8051 Dec, Routine health maintenance V70.0 ; Lumbago 724.2 ; Migraine 346.90 ; Acne cystica 706.1 and Tingling of skin 782.[address] [address] Dec, Dental examination V72.[address] [address] Nov, Dental examination V72.2 [id number] [place] [address] 50703- 2087 Nov, Routine gynecological examination V72.31 ; Pap test, as part of routine gynecological examination V76.2 ; Breast cancer screening V76.10 and Encounter for initial prescription of injectable contraceptive V25.[address] [address] October, Dental examination V72.[address] [address] October, Dental examination V72.2 [id number] [place] [address] 57165- 1629 Sep, [place] [id number] [place] [address] 19632- 5845 Sep, [place] [id number] [place] [address] 61330- 0757 Jul, [id number] [place] [address] 65060- 9877 Jul, [address] [id number] [place] [address] 03822- 9247 Jan, [place] [id number] [place] [address] 55502- 1951 Jan, [facility] [place] [facility] [address] [id number] [place] [address]- 5923 Jan, [facility] [place] [facility] [address] [id number] [place] [address]- 4587 Jan, [facility] [place] [facility] [address] [id number] [place] [address]- 5755 October, [facility] [place] [facility] [address] [id number] [place] [address]- 2584 October, [facility] [place] [facility] [address] [id number] [place] [address]- 1165 Jul, [facility] [place] [facility] [address] [id number] [place] [address]- 5616 Jul, [facility] [place] [facility] [address] [id number] [place] [address]- 5104 Jul, [facility] [place] [facility] [address] [id number] [place] [address]- 9121 Jul, [facility] [place] [facility] [address] [id number] [place] [address]- 7572 Jul, [facility] [place] [facility] [address] [id number] [place] [address]- 1296 Jul, [facility] [place] [facility] [address] [id number] [place] [address]- 5655 Jul, [facility] [place] [facility] [address] [id number] [place] [address]- 9051 Jul, [facility] [place] [facility] [address] [id number] [place] [address]- 7158 Jul, [facility] [place] [facility] [address] [id number] [place] [address]- 2208 Jul, [facility] [place] [facility] [address] [id number] [place] [address]- 9245 Jul, [facility] [place] [facility] [address] [id number] [place] [address]- 1209 27 Feb, 2012 [facility] [address] [id number] [place] [address]- 6756 20 Feb, 2012 [facility] [address] [id number] [place] [address] 2546 17 Feb, 2013 [facility] [address] [id number] [place] [address] 2546 16 Feb, 2013 [facility] [address] [id number] [place] [address]- 4817 13 Jan, 2013 [facility] [address] [id number] [place] [address]- 4870 20 Nov, 2012 [facility] [address] [id number] [place] [address]- 6459 18 May, 2012 [facility] [address] [id number] [place] [address]- 9399 18 May, 2012 [facility] [address] [id number] [place] [address]- 7482 May, [facility] [address] [id number] [place] [address]- 6111 May, [facility] [address] [id number] [place] [address]- 3269 May, [facility] [address] [id number] [place] [address]- 2196 May, [facility] [address] [id number] [place] [address]- 9376 May, [facility] [place] [facility] [address] [id number] [place] [address]- 2546 Apr, [facility] [address] [id number] [place] [address]- 2546 Apr, [facility] [address] [id number] [place] [address]- 8266 October, [facility] [address] [address]- 5606 Sep, [facility] [address] [address]- 0376 Aug, [facility] [address] [address]- 7414 Jul, [facility] [id number] [place] [address] 98866- 1325 Jul, [facility] [id number] [place] [address] 97906- 0326 Jul, [facility] [id number] [place] [address] 67948- 1053 May, [facility] [address] [place] [address]- 9907 Feb, [facility] [address] [place] [address] 13743- 8200 Apr, [facility] [address], [place] [address]- 0130 Apr, [facility] [address] [address]- 6050 Mar, [facility] [address], [place] [address]- 5031 Mar, IMMUNIZATIONS No Known Immunizations SOCIAL HISTORY Never Assessed REASON FOR VISIT Well Woman Exam-[facility] PLAN OF CARE Activity Details Follow Up 1 Year Reason:wwe VITAL SIGNS Height 68 in 2017-11-23 Weight 173.0 lbs 2017-11-23 Temperature 98.1 degrees Fahrenheit 2017-11-23 Heart Rate 88 bpm 2017-11-23 Respiratory Rate 18 2017-11-23 BMI 26.30 kg/m2 2017-11-23 Blood pressure systolic 122 mmHg 2017-11-23 Blood pressure diastolic 72 mmHg 2017-11-23 MEDICATIONS Medication Instructions Dosage Frequency Start Date End Date Duration Status Super B Complex Active Ondansetron 4 MG sublingual 1 tablet twice daily as needed (every 6 hours) DISSOLVE ONE TABLET BY MOUTH Active Probiotic - Active Xanax 0.5 MG Orally Twice a day 1 tablet 12h 28 days Active Vitamin D-Vitamin K - Active Zithromax 1 GM Active Multivitamin Adult - Active Vitamin C Adult Gummies 125 MG Active Minocycline HCl 100 MG Orally every 12 hrs 1 capsule 12h Active Trazodone HCl 150 MG Orally Once a day 1 tablet at bedtime as needed 24h Active FUENTES-e 400 MG Active RESULTS No Results PROCEDURES Procedure Date Ordered Result Body Site No Charge November 23, 2017 TRICHOMONAS ASSAY W/OPTIC November 23, 2017 CULTURE, BACTERIA, OTHER November 23, 2017 Bacterial Vaginosis In House November 23, 2017 VENIPUNCT, ROUTINE* November 23, 2017 INSTRUCTIONS MEDICATIONS ADMINISTERED No Known Medications [...]
--- OUTSIDE RECORDS SUMMARY | 2018-05-27 17:32 | XMS REPORT ---
Author Author GLORIA LANDAVERDE Organization [employer] Address Unknown Phone Unavailable Care Team Providers Care Paleontological Helper Name Role Phone GLORIA LANDAVERDE CP Unavailable [...]
--- OUTSIDE RECORDS SUMMARY | 2018-05-27 17:32 | XMS REPORT ---
Author Author KELLY RUELAS Organization [employer] Address Unknown Phone Unavailable Care Team Providers Care Boilermaker Helper Name Role Phone KELLY RUELAS CP Unavailable Allergies, Adverse Reactions, Alerts Substance [...] Problem Chest pain, unspecified type R07.9 Active Assessment Acute non-recurrent maxillary sinusitis J01.00 Active Problem Migraine aura without headache G43.109 Active Problem History of benign brain tumor Z86.011 Active Problem Essential hypertension I10 Active Medications Medication Code System Code Instructions Start Date End Date Status Dosage Augmentin [facility] [address]-04 875-125 MG Orally every 12 hrs Feb 11, 2016 Feb 21, 2016 1 tablet Xanax [facility] [address]-47 0.5 MG Orally Three times a day PRN 1 tablet Lisinopril [facility] [address]-95 20 MG Orally Once a day 1 tablet Meclizine HCl [facility] [address]-57 25 MG Orally every 8 hours, PRN Feb 07, 2016 1 tablet as needed Ondansetron [facility] 17476701820 4 MG Oral DISSOLVE ONE TABLET BY MOUTH EVERY 6 HOURS NEEDED Ibuprofen [facility] [address]-31 200 MG Orally every 6 hrs 1 tablet as needed Tylenol [facility] [address]-96 325 MG Orally every 6 hrs 2 tablets as needed Omeprazole [facility] [address]-46 40 mg Orally Once a day Feb 07, 2016 1 capsule Depo-Provera [facility] [address]-45 150 MG/ML Intramuscular November 20, 2014 Feb 13, 2016 1 ml Procedures Procedure Coding System Code Date STREP A ASSAY W/OPTIC CPT-4 99074 Feb 11, 2016 Office Visit, Est Pt., Level 3 CPT-4 13052 Feb 11, 2016 Vital Signs Date/Time: Feb 11, 2016 Cardiac Monitoring Heart Rate 80 bpm Weight 212.4 lbs Height 68 in BMI 32.29 Index Blood Pressure Diastolic 76 mmHg Blood Pressure Systolic 110 mmHg Results No Known Results Summary Purpose [employer] Submission
--- OUTSIDE RECORDS SUMMARY | 2018-05-27 17:33 | XMS REPORT ---
Author KIKI Pedraza Organization [employer] Address Unknown Phone Unavailable Care Team Providers Care Retail Security Professional Name Role Phone KIKI HUANG CP Unavailable Allergies No Known Allergies Problems Problem Type Condition Code Onset Dates Condition Status Problem Lumbago 724.2 Active Problem Migraine 346.90 Active Problem Adjustment reaction to medical therapy 309.89 Active Problem Routine health maintenance V70.0 Active Medications No Known Medications Results No Known Results Summary Purpose [employer] Submission
--- OUTSIDE RECORDS SUMMARY | 2018-05-27 17:33 | XMS REPORT ---
Author Author GLORIA LANDAVERDE Organization [employer] Address Unknown Phone Unavailable Care Team Providers Care Post Hole Digger Name Role Phone GLORIA LANDAVERDE CP Unavailable [...] Chest pain, unspecified type R07.9 Active Assessment Chronic nausea R11.0 Active Problem Migraine aura without headache G43.109 Active Problem History of benign brain tumor Z86.011 Active Assessment Anxiety about health F41.8 Active Problem Essential hypertension I10 Active Medications No Known Medications Results No Known Results Summary Purpose [employer] Submission
--- OUTSIDE RECORDS SUMMARY | 2018-05-27 17:33 | XMS REPORT ---
Author Author GLORIA LANDAVERDE [facility] [employer] Address Unknown Phone Unavailable Care Team Providers Care Class A Regional Truck Driver Name Role Phone GLORIA LANDAVERDE Unavailable Allergies, Adverse Reactions, Alerts Substance Reaction Event Type N.K.D.A. Info Not Available Non Drug Allergy Problems Problem Type Condition Code Onset Dates Condition Status Problem Migraine aura without headache G43.109 Active Problem Essential hypertension I10 Active Problem History of benign brain tumor Z86.011 Active Problem Chest pain, unspecified type R07.9 Active Problem Secondary hypertension I15.9 Active Problem Anxiety F41.9 Active Problem Anxiety about health F41.8 Active Problem Shortness of breath R06.02 Active Problem Nausea R11.0 Active Problem Chest discomfort R07.89 Active Assessment Shortness of breath R06.02 Active Assessment Anxiety about health F41.8 Active Assessment Essential hypertension I10 Active Assessment History of benign brain tumor Z86.011 Active Assessment Chest discomfort R07.89 Active Medications Medication Code System Code Instructions Start Date End Date Status Dosage Zofran [facility] [address]-45 4 MG Orally 3 times a day December 28, 2015 2 tablets Depo-Provera [facility] [address]-83 150 MG/ML Intramuscular November 20, 2014 Feb 13, 2016 1 ml Toprol XL [facility] [address]-90 50 mg Orally Once a day November 21, 2015 1 tablet HydrOXYzine HCl [facility] [address]-48 50 mg Orally every 6 hrs anxiety December 1/2-1 tablet as needed Xanax [facility] [address]-43 0.5 MG Orally Three times a day PRN 1 tablet Procedures Procedure Coding System Code Date Office Visit, Est Pt., Level 4 CPT-4 61609 January 01, 2016 VENIPUNCT, ROUTINE* CPT-4 95688 January 01, 2016 ASSAY OF MAGNESIUM CPT-4 14051 January 01, 2016 Vital Signs Date/Time: January 01, 2016 Cardiac Monitoring Heart Rate 82 bpm Weight 223.0 lbs Height 68 in Blood Pressure Diastolic 74 mmHg Blood Pressure Systolic 126 mmHg Results No Known Results Summary Purpose [employer] Submission
--- OUTSIDE RECORDS SUMMARY | 2018-05-27 17:33 | XMS REPORT ---
Author Velvet Cloud [facility] [place] eClinicalWorks Address Unknown Phone Unavailable Care Team Providers Care Relations Manager Name Role Phone Velvet Willis CP Unavailable Allergies, Adverse Reactions, Alerts Substance Reaction Event Type N.K.D.A. Info Not Available Non Drug Allergy Problems Problem Type Condition Code Onset Dates Condition Status Assessment Lyme disease A69.20 Active Problem Chronic fatigue syndrome R53.82 Active Medications Medication Code System Code Instructions Start Date End Date Status Dosage Co Q 10 [facility] [address] 60 MG Orally Once a day 1 capsule with a meal Probiotic [facility] [address] - Orally not defined FUENTES-e [facility] [address] 200 MG Orally not defined Xanax [facility] [address]-83 0.5 MG Orally Three times a day 1 tablet Zofran [facility] [address]-78 4 MG Orally Once a day 2 tablets Magnesium [facility] [address]-91 300 MG Orally Once a day 1 capsule with a meal Prilosec [facility] [address]-47 20 MG Orally Once a day 2 capsules Benadryl [facility] [address]-44 25 MG Orally every 6 hrs 1 capsule as needed Depo-Provera [facility] [address]-54 150 MG/ML Intramuscular 1 ml Minocycline HCl [facility] [address]-17 100 MG Orally every 12 hrs 1 capsule Super B Complex [facility] 0 - Orally not defined Fish Oil [facility] [address]-27 1000 MG Orally Once a day 1 capsule Procedures Procedure Coding System Code Date OFFICEOUTPATIENT VISIT EST OFFICE OR OTHER OUTPATIENT VISIT FOR THE EVALUATION AND MANAGEMENT OF AN ESTABLISHED PATIENT, WHICHREQUIRES AT LEAST 2 OF THESE 3 MCNEILL COMPONENTS, AN EXPANDED PROBLEM FOCUSED HISTORY,AN EXPANDED PROBLEM FOCUSED EXAMINATION CPT-4 00906 May 06, 2016 Charge billed by Lab CPT-4 NOBIL May 06, 2016 Vital Signs Date/Time: May 06, 2016 Blood Pressure Diastolic 60 mm Hg Blood Pressure Systolic 120 mm Hg Cardiac Monitoring Heart Rate 74 /min Respiratory Rate 16 /min BMI 32.08 Index Weight 211 lbs Height 68 in Oximetry 98 % Results No Known Results Summary Purpose eClinicalWorks Submission
--- OUTSIDE RECORDS SUMMARY | 2018-05-27 17:33 | XMS REPORT ---
Author Author JOAQUIN NOLAN Organization e[employer] Address Unknown Phone Unavailable Care Team Providers Care Top Cager Name Role Phone JOAQUIN NOLAN CP Unavailable Allergies No Known Allergies Problems [...] Dizziness R42 Active Problem Anxiety F41.9 Active Problem Migraine aura without headache G43.109 Active Problem History of benign brain tumor Z86.011 Active Problem Essential hypertension I10 Active Problem Shortness of breath R06.02 Active Medications Medication Code System Code Instructions Start Date End Date Status Dosage Diflucan [facility] [address]-58 100 MG Orally daily Feb 20, 2016 Feb 27, 2016 1 tablet Results No Known Results Summary Purpose eClinicalWorks Submission
--- OUTSIDE RECORDS SUMMARY | 2018-05-27 17:33 | XMS REPORT ---
Author Author GLORIA LANDAVERDE Organization e[employer] Address Unknown Phone Unavailable Care Team Providers Care Family Service Assistant Name Role Phone GLORIA LANDAVERDE CP Unavailable [...] R11.0 Active Problem Chest discomfort R07.89 Active Medications No Known Medications Results No Known Results Summary Purpose eClinicalWorks Submission
--- OUTSIDE RECORDS SUMMARY | 2018-05-27 17:33 | XMS REPORT ---
Author Author MEG SINGH Organization [employer] Address Unknown Phone Unavailable Care Team Providers Care Lead Php Developer Name Role Phone MEG SINGH CP Unavailable Allergies No Known Allergies Problems [...] F41.8 Active Problem Essential hypertension I10 Active Assessment Anxiety F41.9 Active Problem Shortness of breath R06.02 Active Medications No Known Medications Procedures Procedure Coding System Code Date Psych diagnostic evaluation, new patient CPT-4 36379 Feb 18, 2016 Results No Known Results Summary Purpose eClinicalWorks Submission
--- OUTSIDE RECORDS SUMMARY | 2018-05-27 17:33 | XMS REPORT ---
Author Author GLORIA LANDAVERDE Organization [employer] Address Unknown Phone Unavailable Care Team Providers Care Bird Raiser Name Role Phone GLORIA LANDAVERDE CP Unavailable [...] Active Problem Chest discomfort R07.89 Active Medications Medication Code System Code Instructions Start Date End Date Status Dosage Sukhdev [facility] [address]-07 4 MG Orally Once a day as needed December 28, 2015 1 tablet Results No Known Results Summary Purpose eClinicalWorks Submission
--- OUTSIDE RECORDS SUMMARY | 2018-05-27 17:33 | XMS REPORT ---
Author GLORIA [facility] eClinicalWorks Address Unknown Phone Unavailable Care Team Providers Care Kitchen And Counter Worker Name Role Phone GLORIA LANDAVERDE Unavailable Allergies, [...] Chest pain, unspecified type R07.9 Active Assessment Encounter for Depo-Provera contraception Z30.42 Active Assessment Chronic nausea R11.0 Active Problem Migraine aura without headache G43.109 Active Assessment Dizziness R42 Active Problem History of benign brain tumor Z86.011 Active Assessment Dyspepsia R10.13 Active Problem Essential hypertension I10 Active Medications Medication Code System Code Instructions Start Date End Date Status Dosage Ondansetron [facility] 12767703883 4 MG Oral DISSOLVE ONE TABLET BY MOUTH EVERY [address] [facility] [address]-89 0.5 MG Orally Three times a day PRN [address] [facility] [address]-33 200 MG Orally every 6 hrs 1 tablet as needed Lisinopril [facility] [address]-43 20 MG Orally Once a day 1 tablet Depo-Provera [facility] [address]-00 150 MG/ML Intramuscular November 20, 2014 Feb 13, [address] [facility] [address]-91 25 MG Orally every 8 hours, PRN Feb 07, 2016 1 tablet as needed Omeprazole [facility] [address]-11 40 mg Orally Once a day Feb 07, [address] [facility] [address]-51 325 MG Orally every 6 hrs 2 tablets as needed Procedures Procedure Coding System Code Date RICKETTSIA ANTIBODY CPT-4 35994 Feb 07, 2016 LYME DISEASE ANTIBODY CPT-4 41252 Feb 07, 2016 IMMUNOASSAY,INFECTIOUS AGENT CPT-4 67601 Feb 07, 2016 VENIPUNCT, ROUTINE* CPT-4 85799 Feb 07, 2016 URINE TEST CPT-4 14554 Feb 07, 2016 Office Visit, Est Pt., Level 5 CPT-4 80384 Feb 07, 2016 COMPREHEN METABOLIC PANEL CPT-4 71380 Feb 07, 2016 THER/PROPH/DIAG INJ, SC/IM CPT-4 10390 Feb 07, 2016 DEPO PROVERA (150 MG/ML) CPT-4 J1050 Feb 07, 2016 Vital Signs Date/Time: Feb 07, 2016 Blood Pressure Systolic 128 mmHg Weight 212.9 lbs Height 68 in BMI 32.37 Index Blood Pressure Diastolic 88 mmHg Results No Known Results Summary Purpose eClinicalWorks Submission
--- OUTSIDE RECORDS SUMMARY | 2018-05-27 17:34 | XMS REPORT ---
Author Author JOAQUIN NOLAN Organization [facility] Address [address] [place] [address] Care Team Providers Care Or Manager Name Role Phone AWA NOLANNETTE Unavailable PROBLEMS Type Condition ICD9-CM Code [id number] Code Onset Dates Condition Status SNOMED Code Problem Nausea R11.0 Active 185755852 Problem Chest pain, unspecified type R07.9 Active 19546739 Problem Secondary hypertension I15.9 Active 73584352 Problem Irregular menses N92.6 Active 441835095 Problem Gastroesophageal reflux disease without esophagitis K21.9 Active 467797595 Problem Chronic nausea R11.0 Active 419660530 Problem Dyspepsia R10.13 Active 217488621 Problem Well woman exam with routine gynecological exam Z01.419 Active 059713431 Problem Dizziness R42 Active 301781167 Problem Migraine aura without headache G43.109 Active 619583528 Problem Chest discomfort R07.89 Active 667118304 Problem Shortness of breath R06.02 Active 581255227 Problem History of benign brain tumor Z86.011 Active 134503976 Problem Anxiety about health F41.8 Active 999986375 Problem Essential hypertension I10 Active 67413870 Problem Anxiety F41.9 Active 81979589 ALLERGIES No Information SOCIAL HISTORY Never Assessed PLAN OF CARE VITAL SIGNS MEDICATIONS Medication Instructions Dosage Frequency Start Date End Date Duration Status Lisinopril 20 mg Orally Once a day 1 tablet 24h 30 days Active Omeprazole 40 mg Orally Once a day 1 capsule 24h 30 days Active RESULTS No Results PROCEDURES No Known procedures IMMUNIZATIONS No Known Immunizations MEDICAL (GENERAL) HISTORY Type Description Date Medical [...] History section X1 Surgical History breast augmentation 2010 Surgical History dilatation and curettage Hospitalization History hospitalized for surgeries only
--- OUTSIDE RECORDS SUMMARY | 2018-05-27 17:34 | XMS REPORT ---
Author Author GLORIA LANDAVERDE Organization eClinicalWorks Address Unknown Phone Unavailable Care Team Providers Care Insulation Estimator Name Role Phone GLORIA LANDAVERDE CP Unavailable Allergies No Known Allergies Problems Problem Type Condition Code Onset Dates Condition Status Problem Chest pain, unspecified type R07.9 Active Problem Secondary hypertension I15.9 Active Problem Anxiety F41.9 Active Problem History of benign brain tumor Z86.011 Active Problem Migraine aura without headache G43.109 Active Problem Nausea R11.0 Active Problem Essential hypertension I10 Active Medications No Known Medications Results No Known Results Summary Purpose eClinicalWorks Submission
--- OUTSIDE RECORDS SUMMARY | 2018-05-27 17:34 | XMS REPORT ---
Author Velvet Cloud Organization [facility] Address [address] [place] [address] Care Team Providers Care Statistical Machine Servicer Name Role Phone Velvet Willis Unavailable PROBLEMS Type Condition ICD9-CM Code III65-RL Code Onset Dates Condition Status SNOMED Code Problem Obesity (BMI 30.0-34.9) E66.9 Active 310153239 Problem Insomnia, unspecified type G47.00 Active 912477367 Problem Chronic fatigue syndrome R53.82 Active 06935550 ALLERGIES No Information SOCIAL HISTORY Never Assessed PLAN OF CARE VITAL SIGNS MEDICATIONS Unknown Medications RESULTS No Results PROCEDURES No Known procedures IMMUNIZATIONS No Known Immunizations MEDICAL (GENERAL) HISTORY Type Description Date Medical History lyme disease Medical History Heart issue Surgical History D&C 1993 Surgical History Brain Surgery 1997 Surgical History section Surgical History cholecystectomy Surgical History breast augmenetion
--- OUTSIDE RECORDS SUMMARY | 2018-05-27 17:34 | XMS REPORT ---
Author Author JOAQUIN Mott Organization [facility] Address [address] [place] [address] Care Team Providers Care Mold Yarn Supervisor Name Role Phone JOAQUIN Mott Unavailable PROBLEMS Type Condition ICD9-CM Code LXZ46-CO Code Onset Dates Condition Status SNOMED Code Problem Secondary hypertension I15.9 Active 52326940 Problem Dyspepsia R10.13 Active 289190562 Problem Chest pain, unspecified type R07.9 Active 35182847 Problem Intractable migraine without aura and with status migrainosus G43.011 Active 326649154 Problem Gastroesophageal reflux disease without esophagitis K21.9 Active 127389266 Problem Dizziness R42 Active 452595619 Problem Chronic nausea R11.0 Active 167490151 Problem Irregular menses N92.6 Active 295249020 Problem Well woman exam with routine gynecological exam Z01.419 Active 820331456 Problem Migraine aura without headache G43.109 Active 205573813 Problem History of benign brain tumor Z86.011 Active 097047521 Problem Shortness of breath R06.02 Active 746431510 Problem Anxiety about health F41.8 Active 844274362 Problem Essential hypertension I10 Active 32293727 Problem Anxiety F41.9 Active 30795049 Problem Chest discomfort R07.89 Active 068713390 Problem Nausea R11.0 Active 416382120 ALLERGIES No Information ENCOUNTERS Encounter Location Date Diagnosis [facility] [id number] [place] [address] 82409- 4885 Nov, [facility] [id number] [place] [address] 19187 -9875 May, Intractable migraine without aura and with status migrainosus G43.011 and Vaginal discharge N89.8 [facility] [id number] [place] [address] 26994- 5742 Feb, [facility] [id number] [place] [address] 56661- 7427 Jan, Anxiety about health F41.8 [place] [address] 28999- 3940 Dec, [place] [address] 27770- 4073 Dec, Essential hypertension I10 ; Anxiety about health F41.8 ; Migraine aura without headache G43.109 ; Gastroesophageal reflux disease without esophagitis K21.9 and Wheezing R06.2 [place] [address] [address]02- 2020 Dec, Anxiety F41.9 [place] [address] 84927- 0248 October, [place] [address] 21740- 7530 Sep, Anxiety F41.9 [place] [address] 99094- 5158 Aug, Anxiety F41.9 [place] [address] 45405- 6336 Jul, Secondary hypertension I15.9 and Gastroesophageal reflux disease without esophagitis K21.9 [place] [id number] [place] [address] 04095- 9768 Jun, Migraine aura without headache G43.109 ; Essential hypertension I10 ; Anxiety F41.9 ; Secondary hypertension I15.9 ; Anxiety about health F41.8 ; Gastroesophageal reflux disease without esophagitis K21.9 and Irregular menses N92.6 [place] [address] 82717- 4033 Jun, Shortness of breath R06.02 [place] [id number] [place] [address] 65904- 6888 Jun, [facility] [address] [address] May, Sore throat J02.9 and Viral pharyngitis J02.9 [facility] [id number] [place] [address] 63477- 1002 Mar, [facility] [id number] [place] [address] 94911- 4653 Mar, [facility] [id number] [place] [address] 43515- 9587 Mar, [facility] [id number] [place] [address] 90525- 1872 Mar, [facility] [id number] [place] [address] 04508- 8737 Mar, [facility] [id number] [place] [address] 04186- 5565 Mar, Migraine aura without headache G43.109 ; Essential hypertension I10 ; History of benign brain tumor Z86.011 ; Anxiety F41.9 ; Secondary hypertension I15.9 ; Nausea R11.0 ; Chest discomfort R07.89 ; Anxiety about health F41.8 ; Shortness of breath R06.02 ; Dyspepsia R10.13 ; Dizziness R42 and 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 [facility] [id number] [place] [address] 02595 -3834 Feb, Sore throat J02.9 and Acute maxillary sinusitis, recurrence not specified J01.00 [facility] [id number] [place] [address] 09649 -9643 Feb, Burning with urination R30.0 [facility] [id number] [place] [address] 71151- 1777 Feb, [facility] [id number] [place] [address] 64583- 5138 Feb, [facility] [id number] [place] [address] 75178- 2741 15 Feb, 2016 [facility] [id number] [place] [address] 05386- 7763 13 Feb, 2016 [facility] [address] 78417 -8693 02 Feb, 2016 Sore throat J02.9 and Allergic rhinitis, unspecified allergic rhinitis trigger, unspecified rhinitis seasonality J30.9 [place] [address] 75942- 3975 Jan, [place] [address] 22352- 9665 Jan, Well woman exam with routine gynecological exam Z01.419 ; Shortness of breath R06.02 and Anxiety about health F41.8 [place] [address] 52397- 2464 Jan, Anxiety F41.9 and Anxiety about health F41.8 [place] [id number] [place] [address] 16498- 8614 Jan, Generalized anxiety disorder F41.1 [place] [address] 37852- 9590 Jan, Chronic nausea R11.0 and Anxiety about health F41.8 [facility] [id number] [place] [address] 15122 -0040 Jan, Acute non-recurrent maxillary sinusitis J01.00 [facility] [id number] [place] [address] 15507- 5638 Jan, [place] [address] 14934- 0830 Jan, [place] [id number] [place] [address] 33943- 4460 Jan, Chronic nausea R11.0 ; Dyspepsia R10.13 ; Dizziness R42 and Encounter for Depo-Provera contraception Z30.42 [place] [address] [address] 76[address] Jan, [facility] [id number] [place] [address] 09525- 6664 Dec, [facility] [id number] [place] [address] 84526- 9259 Dec, [facility] [id number] [place] [address] 06996- 0079 Dec, Essential hypertension I10 [facility] [id number] [place] [address] 99066- 2146 Dec, Chest discomfort R07.89 ; Essential hypertension I10 ; Anxiety about health F41.8 ; Shortness of breath R06.02 and History of benign brain tumor Z86.011 [facility] [address] [address] Dec, Anxiety F41.9 ; Chest pain, unspecified type R07.9 ; Secondary hypertension I15.9 and Nausea R11.0 [facility] [address] [place] [address] 16182- 8111 Dec, [place] [address] [place] [address] 46920- 2126 Nov, [facility] [address] [address] 7027 Nov, Essential hypertension I10 ; History of benign brain tumor Z86.011 and Migraine aura without headache G43.109 [facility] [address] [address] 1277 October, Essential hypertension I10 ; History of benign brain tumor Z86.011 and Headache, unspecified headache type R51 [facility] [address] [address]- 76[address] October, [facility] [address] [place] [address] 83748- 0819 October, Elevated blood pressure I10 ; Encounter for Depo-Provera contraception Z30.42 ; Migraine aura without headache G43.109 and Encounter for surveillance of injectable contraceptive Z30.42 [facility] [address] [place] [address] 19904- 9626 Jul, Encounter for Depo-Provera contraception Z30.42 [facility] [address] [place] [address] 68084- 7494 Apr, Encounter for Depo-Provera contraception Z30.42 [facility] [id number] [place] [address] 43428- 8388 Apr, [facility] [id number] [place] [address] 24735- 1865 Mar, [facility] [id number] [place] [address] 11157- 9777 Feb, [facility] [id number] [place] [address] 43790- 5779 Feb, [facility] [id number] [place] [address] 62443- 5526 Feb, Sore throat 462 [facility] [address] [place] [address] 95471- 8419 Jan, Encounter for Depo-Provera contraception V25.49 [place] [id number] [place] [address] 28350- 9166 Jan, [facility] [address] [place] [address] 47415- 8036 Dec, Adjustment reaction to medical therapy 309.89 and Post- nasal drip 784.91 [facility] [address] [place] [address] 44194- 4668 Dec, Routine health maintenance V70.0 ; Lumbago 724.2 ; Migraine 346.90 ; Acne cystica 706.1 and Tingling of skin 782.0 [facility] [place] [address] [place] [id number] Dec, Dental examination V72.2 [facility] [place] [address] [id number] [place] [id number] Nov, Dental examination V72.2 [facility] [address] [id number] [address] Nov, Routine gynecological examination V72.31 ; Pap test, as part of routine gynecological examination V76.2 ; Breast cancer screening V76.10 and Encounter for initial prescription of injectable contraceptive V25.02 [facility] [place] [address] [id number] [place] [id number] October, Dental examination V72.2 [facility] [place] [address] [id number] [place] [id number] October, Dental examination V72.2 [facility] [address] [id number] Sep, [facility] [address] [facility] [id number] [address]- 3214 Sep, [facility] [id number] [address]- 0014 Jul, [facility] [id number] [address]- 0726 Jul, [facility] [id number] [address]- 5641 Jan, [facility] [id number] [address]- 1625 Jan, [facility] [address] [facility] [id number] 6[address] Jan, [facility] [address] [facility] [id number] [address] 4814 Jan, [facility] [id number] [address] October, [facility] [place] [facility] [address] [facility] [id number] [place] [address]- 3208 October, [facility] [place] [facility] [address] [id number] [place] [address]- 4037 Jul, [facility] [place] [facility] [address] [id number] [place] [address]- 3492 Jul, [facility] [place] [facility] [address] [id number] [place] [address]- 0119 Jul, [facility] [place] [facility] [address] [id number] [place] [address]- 8450 Jul, [facility] [place] [facility] [address] [id number] [place] [address]- 5289 18 Jul, 2013 [facility] [place] [facility] [address] [facility] [id number] [place] [address]- 6489 18 Jul, 2013 [facility] [place] [facility] [address] [id number] [place] [address]- 7448 14 Jul, 2013 [facility] [place] [facility] [address] [id number] [place] [address]- 5887 14 Jul, 2013 [facility] [place] [facility] [address] [facility] [id number] [place] [address]- 3032 13 Jul, 2013 [facility] [place] [facility] [address] [facility] [id number] [place] [address]- 8766 10 Jul, 2013 [facility] [place] [facility] [address] [facility] [id number] [address]- 3362 10 Jul, 2013 [facility] [place] [facility] [address] [id number] [place] [address]- 2927 27 Feb, 2013 [facility] [place] [facility] [address] [id number] [address]- 3814 20 Feb, 2013 [facility] [place] [facility] [address] [facility] [id number][place] [address]- 6601 17 Feb, 2013 [facility] [place] [facility] [address] [id number], [place] [address] 2546 16 Feb, 2013 [facility] [address] [id number] [place] [address]- 8011 Jan, [facility] [address] [id number] [place] [address]- 6026 Nov, [facility] [address] [place] [address]- 9136 May, [facility] [address] [id number] [place] [address]- 0082 May, [facility] [address] [id number] [place] [address]- 0514 May, [facility] [address] [id number] [place] [address]- 6259 May, [facility] [address] [address]- 7504 May, [facility] [id number] [address]- 2873 May, [facility] [id number] [address]- 0373 May, [facility] [id number] [address]- 0010 Apr, [facility] [address] [id number] [place] [address]- 9506 Apr, [facility] [place] [facility] [address] [id number] [place] [address]- 2546 October, [facility] [place] [facility] [address] [id number] [place] [address]- 2616 Sep, [facility] [place] [facility] [address] [facility] [id number] [place] [address]- 2546 Aug, [facility] [id number] [place] [address]- 0906 Jul, [facility] [id number] [address]- 2546 Jul, [facility] [address], [place] [address]- 2546 Jul, [facility] [address], [place] [address]- 2546 May, [facility] [address] [address]- 2546 Feb, [facility] [address] [address]- 2546 Apr, [facility] [address], [place] [address]- 2546 Apr, [facility] [address] [address]- 2546 Mar, [facility] [address], [place] [address]- 2546 Mar, IMMUNIZATIONS No Known Immunizations SOCIAL HISTORY Never Assessed REASON FOR VISIT [facility] PLAN OF CARE VITAL SIGNS MEDICATIONS Medication Instructions Dosage Frequency Start Date End Date Duration Status Alprazolam 0.5 MG Orally 2 times a day 1 tablet 12h 28 Active RESULTS No Results PROCEDURES No Known [...]
--- OUTSIDE RECORDS SUMMARY | 2018-05-27 17:34 | XMS REPORT ---
Author Velvet Cloud Organization [facility] Address [address] [place] [address] Care Team Providers Care Program Control Analyst Name Role Phone Velvet Willis Unavailable PROBLEMS Type Condition ICD9-CM Code EVD94-CP Code Onset Dates Condition Status SNOMED Code Problem Obesity (BMI 30.0-34.9) E66.9 Active 274346533 Problem Insomnia, unspecified type G47.00 Active 279957803 Problem Chronic fatigue syndrome R53.82 Active 84313840 ALLERGIES No Known Allergies SOCIAL HISTORY Never Assessed PLAN OF CARE Activity Details Follow Up prn Reason: Pending Test H pylori, IgM, IgG, IgA Ab Pending Test Amylase, Serum Pending Test Lipase, Serum Pending Test CBC with Differential/Platelet Pending Test CMP (Comprehensive Metabolic Panel) Pending Test Upper gastrointestinal (UGI) series with Small bowel follow through VITAL SIGNS Heart Rate 84 /min 2017-03-10 Respiratory Rate 16 /min 2017-03-10 Temperature 97.5 degrees Fahrenheit 2017-03-10 Oximetry 97 % 2017-03-10 BMI 35.88 kg/m2 2017-03-10 Height 68 in 2017-03-10 Weight 236 lbs 2017-03-10 Blood pressure systolic 118 mm Hg 2017-03-10 Blood pressure diastolic 68 mm Hg 2017-03-10 MEDICATIONS Medication Instructions Dosage Frequency Start Date End Date Duration Status Hydrochlorothiazide 25 MG Orally Once a day 1 tablet 24h Aug, Active Co Q 10 60 MG Orally Once a day 1 capsule with a meal 24h Active Probiotic - Active Benadryl 25 MG Orally every 6 hrs 1 capsule as needed 6h Active Prilosec 20 MG Orally Once a day 2 capsules 24h Active Fish Oil 1000 MG Orally Once a day 1 capsule 24h Active Xanax 0.5 MG Orally Three times a day 1 tablet 8h Active Proventil HFA 108 (90 Base) MCG/ACT Inhalation every 4 hrs 2 puffs as needed 4h Active Trazodone HCl 50MG Orally at bedtime as needed for insomnia 3 tablets at bedtime 30 Active Super B Complex - Active FUENTES-e 200 MG Active Magnesium 300 MG Orally Once a day 1 capsule with a meal 24h Active Zofran 4 MG Orally Once a day 2 tablets 24h Active RESULTS Name Result Date Reference Range Urinalysis, Routine 2017-03-10 Microscopic Examination Urine-Color Yellow Appearance Clear Specific [place] 1.025 pH 6.5 Glucose Neg Protein +- 0.15 Occult Blood Neg Bilirubin Neg Urobilinogen,Semi-Qn Neg Nitrite, Urine Neg Ketones Neg WBC Esterase Neg Urinalysis Gross Exam PROCEDURES Procedure Date Ordered Result Body Site URINALYSIS AUTO WO SCOPE URINALYSIS, BY DIP STICK OR TABLET REAGENT FOR BILIRUBIN, GLUCOSE, HEMOGLOBIN, KETONES, LEUKOCYTES, NITRITE, PH, PROTEIN, SPECIFIC GRAVITY, UROBILINOGEN, ANY NUMBER OF THESE CONSTITUENTS; AUTOMATED, WITHOUTMICROSCOPY Mar 10, 2017 Outside Labs Self-Pay Patients Only Mar 10, 2017 IMMUNIZATIONS No Known Immunizations MEDICAL (GENERAL) HISTORY Type Description Date Medical History lyme disease Medical History Heart issue Surgical History D&C 1993 Surgical History Brain Surgery 1997 Surgical History section Surgical History cholecystectomy Surgical History breast augmenetion
--- OUTSIDE RECORDS SUMMARY | 2018-05-27 17:34 | XMS REPORT ---
Author Author Velvet Willis Organization [facility] Address [address] [place] [address] Care Team Providers Care Sas Programmer Analyst Name Role Phone Velvet Willis Unavailable PROBLEMS Type Condition ICD9-CM Code AZZ77-FS Code Onset Dates Condition Status SNOMED Code Problem Late menses N92.6 Active 69513454 Problem Obesity (BMI 30.0-34.9) E66.9 Active 587848447 Problem Insomnia, unspecified type G47.00 Active 953302670 Problem Chronic fatigue syndrome R53.82 Active 64381981 ALLERGIES No Known Allergies ENCOUNTERS Encounter Location Date Diagnosis [facility] [address] [place] [id number] Mar, PID (acute pelvic inflammatory disease) N73.0 ; Late menses N92.6 and Dysuria R30.0 [facility] [address] [place] [id number] Aug, [facility] [address] [place] [id number] Apr, [facility] [address] [place] [address] Mar, [facility] [address] [place] [address] Feb, [facility] [address] [place] [id number] Feb, [facility] [address] [place] [address] Feb, [facility] [address] [address] Feb, Dysuria R30.0 ; Epigastric abdominal pain R10.13 ; Lyme disease A69.20 ; 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 ; 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 and Plantar fasciitis M72.2 [facility] [address] [place] [id number] October, [facility] [address] [place] [address] Sep, [facility] [address] [place] [address] Sep, [facility] [address] [place] [address] Sep, [address] [id number] Sep, Lyme disease A69.20 ; Obesity (BMI 30.0-34.9) E66.9 and Peripheral edema R60.9 [facility] [address] [place] [address] Sep, [facility] [address] [place] [id number] Aug, Peripheral edema R60.9 ; Generalized abdominal pain R10.84 and Insomnia, unspecified type G47.00 [facility] [address] [place] [address] May, [address] [id number] May, 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 ; 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 and Lyme disease A69.[address] [id number] May, [address] [id number] Apr, Lyme disease A69.[address] [id number] 24 Mar, 2016 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 ; Lyme disease A69.20 ; 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 ; Acute pharyngitis, unspecified etiology J02.9 and Chronic fatigue syndrome R53.[address] [id number] Mar, [address] [id number] Mar, 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 ; 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 ; Lyme disease A69.20 ; Chronic fatigue syndrome R53.82 and Acute pharyngitis, unspecified etiology J02.9 IMMUNIZATIONS Vaccine Route Administration Date Status Depo-Provera IM Intramuscular Apr 02, 2018 Administered SOCIAL HISTORY Never Assessed REASON FOR VISIT BC/Labs PLAN OF CARE Activity Details Follow Up prn Reason: Pending Test Urinalysis, Routine IH Pending Test Trich vag by RAJI Pending Test Chlamydia/GC Amplification VITAL SIGNS Heart Rate 90 /min 2018-04-02 Respiratory Rate 16 /min 2018-04-02 Temperature 98.2 degrees Fahrenheit 2018-04-02 Oximetry 100 % 2018-04-02 BMI 25.54 kg/m2 2018-04-02 Height 68 in 2018-04-02 Weight 168 lbs 2018-04-02 Blood pressure systolic 118 mm Hg 2018-04-02 Blood pressure diastolic 72 mm Hg 2018-04-02 MEDICATIONS Medication Instructions Dosage Frequency Start Date End Date Duration Status FUENTES-e 200 MG Not-Taking Probiotic - Not-Taking Co Q 10 60 MG Orally Once a day 1 capsule with a meal 24h Not- Taking Proventil HFA 108 (90 Base) MCG/ACT Inhalation every 4 hrs 2 puffs as needed 4h Not-Taking Xanax 0.5 MG Orally Three times a day 1 tablet 8h Not-Taking Fish Oil 1000 MG Orally Once a day 1 capsule 24h Not-Taking Hydrochlorothiazide 25 MG Orally Once a day 1 tablet 24h 28 Aug, 2016 Not-Taking Trazodone HCl 50MG Orally at bedtime as needed for insomnia 3 tablets at bedtime 30 Not-Taking Benadryl 25 MG Orally every 6 hrs 1 capsule as needed 6h Not- Taking Super B Complex - Not-Taking Magnesium 300 MG Orally Once a day 1 capsule with a meal 24h Not- Taking Zofran 4 MG Orally Once a day 2 tablets 24h Not-Taking Prilosec 20 MG Orally Once a day 2 capsules 24h Not-Taking RESULTS Name Result Date Reference Range Test, Urine Test, Urine negative PROCEDURES Procedure Date Ordered Result Body Site URINALYSIS AUTO WO SCOPE URINALYSIS, BY DIP STICK OR TABLET REAGENT FOR BILIRUBIN, GLUCOSE, HEMOGLOBIN, KETONES, LEUKOCYTES, NITRITE, PH, PROTEIN, SPECIFIC GRAVITY, UROBILINOGEN, ANY NUMBER OF THESE CONSTITUENTS; AUTOMATED, WITHOUTMICROSCOPY Apr 02, 2018 URINE TEST URINE TEST, BY VISUAL COLOR COMPARISON METHODS Apr 02, 2018 Outside Labs Self-Pay Patients Only Apr 02, 2018 INSTRUCTIONS MEDICATIONS ADMINISTERED No Known Medications MEDICAL (GENERAL) HISTORY Type Description Date Medical History lyme disease Medical History Heart issue Surgical History D&C 1993 Surgical History Brain Surgery 1997 Surgical History section Surgical History cholecystectomy Surgical History breast augmenetion
--- OUTSIDE RECORDS SUMMARY | 2018-05-27 17:34 | XMS REPORT ---
Author Velvet Cloud Organization [facility] Address [address] [place] [address] Care Team Providers Care Fish Hatchery Laborer Name Role Phone Velvet Willis Unavailable PROBLEMS Type Condition ICD9-CM Code [id number] Code Onset Dates Condition Status SNOMED Code Problem Obesity (BMI 30.0-34.9) E66.9 Active 457137946 Problem Insomnia, unspecified type G47.00 Active 368031133 Problem Chronic fatigue syndrome R53.82 Active 41916883 ALLERGIES No Information SOCIAL HISTORY Never Assessed [...]
--- OUTSIDE RECORDS SUMMARY | 2018-05-27 17:34 | XMS REPORT ---
Author KIKI Pedraza [facility] eClinicalWorks Address Unknown Phone Unavailable Care Team Providers Care Building Consultant Name Role Phone KIKI HUANG CP Unavailable Allergies No Known Allergies Problems Problem Type Condition ICD-9 Code Onset Dates Condition Status Problem Lumbago 724.2 Active Problem Migraine 346.90 Active Problem Adjustment reaction to medical therapy 309.89 Active Problem Routine health maintenance V70.0 Active Assessment Encounter for Depo-Provera contraception V25.49 Active Medications No Known Medications Procedures Procedure Coding System Code Date DEPO PROVERA (150 MG/ML) CPT-4 J1050 Feb 14, 2015 THER/PROPH/DIAG INJ, SC/IM CPT-4 51795 Feb 14, 2015 URINE TEST CPT-4 77782 Feb 14, 2015 Results No Known Results Summary Purpose eClinicalWorks Submission
--- OUTSIDE RECORDS SUMMARY | 2018-05-27 17:35 | XMS REPORT ---
Author Author JOAQUIN NOLAN Organization [facility] Address [address] [place] [address] Care Team Providers Care Dietitian Helper Name Role Phone AN JOAQUIN Unavailable PROBLEMS Type Condition ICD9-CM Code QSW54-DX Code Onset Dates Condition Status SNOMED Code Problem Nausea R11.0 Active 295638765 Problem Chest pain, unspecified type R07.9 Active 39580070 Problem Secondary hypertension I15.9 Active 20637671 Problem Irregular menses N92.6 Active 888286151 Problem Gastroesophageal reflux disease without esophagitis K21.9 Active 160260060 Problem Chronic nausea R11.0 Active 551465045 Problem Dyspepsia R10.13 Active 308270188 Problem Well woman exam with routine gynecological exam Z01.419 Active 932295366 Problem Dizziness R42 Active 475129796 Problem Migraine aura without headache G43.109 Active 566107834 Problem Chest discomfort R07.89 Active 099003494 Problem Shortness of breath R06.02 Active 352392340 Problem History of benign brain tumor Z86.011 Active 301316502 Problem Anxiety about health F41.8 Active 544169637 Problem Essential hypertension I10 Active 50052954 Problem Anxiety F41.9 Active 34443388 ALLERGIES Unknown Allergies SOCIAL HISTORY No smoking Hx information available PLAN OF CARE VITAL SIGNS MEDICATIONS Unknown Medications RESULTS No Results PROCEDURES No Known procedures IMMUNIZATIONS No Known Immunizations
--- OUTSIDE RECORDS SUMMARY | 2018-05-27 17:35 | XMS REPORT ---
Author Author Velvet Willis Organization [facility] Address [address] [facility] [address] [place] [address] Care Team Providers Care Occup Ther Name Role Phone Velvet Willis Unavailable PROBLEMS Type Condition ICD9-CM Code HSU69-DB Code Onset Dates Condition Status SNOMED Code Problem Chronic fatigue syndrome R53.82 Active 30925427 ALLERGIES Unknown Allergies SOCIAL HISTORY No smoking Hx information available PLAN OF CARE VITAL SIGNS MEDICATIONS Unknown Medications RESULTS No Results PROCEDURES No Known procedures IMMUNIZATIONS No Known Immunizations
--- OUTSIDE RECORDS SUMMARY | 2018-05-27 17:35 | XMS REPORT ---
Author Author JOAQUIN NOLAN Organization [employer] Address Unknown Phone Unavailable Care Team Providers Care Motor Vehicle Assembly Supervisor Name Role Phone JOAQUIN NOLAN CP Unavailable [...] breath R06.02 Active Medications No Known Medications Results No Known Results Summary Purpose eClinicalWorks Submission
--- OUTSIDE RECORDS SUMMARY | 2018-05-27 17:35 | XMS REPORT ---
Author Author CARLO ZUÑIGA Organization [facility] Address [address] [place] [address] Care Team Providers Care Die Casting Machine Setter Name Role Phone CARLO ZUÑIGA Unavailable PROBLEMS Type Condition ICD9-CM Code GFM48-JH Code Onset Dates Condition Status SNOMED Code Problem Nausea R11.0 Active 763495803 Problem Chest pain, unspecified type R07.9 Active 65449997 Problem Secondary hypertension I15.9 Active 61680013 Problem Irregular menses N92.6 Active 905502169 Problem Gastroesophageal reflux disease without esophagitis K21.9 Active 640027743 Problem Chronic nausea R11.0 Active 424735833 Problem Dyspepsia R10.13 Active 328051412 Problem Well woman exam with routine gynecological exam Z01.419 Active 183980887 Problem Dizziness R42 Active 782643156 Problem Migraine aura without headache G43.109 Active 565415533 Problem Chest discomfort R07.89 Active 254734349 Problem Shortness of breath R06.02 Active 239865794 Problem History of benign brain tumor Z86.011 Active 297571824 Problem Anxiety about health F41.8 Active 739199254 Problem Essential hypertension I10 Active 33014975 Problem Anxiety F41.9 Active 30094477 ALLERGIES Substance Reaction Event Type Date Status N.K.D.A. Unknown Non Drug Allergy Feb, Unknown SOCIAL HISTORY No smoking Hx information available PLAN OF CARE Activity Details Follow Up prn Reason: VITAL SIGNS Height 68 in 2016-03-13 Weight 205.8 lbs 2016-03-13 Temperature 98.6 degrees Fahrenheit 2016-03-13 Heart Rate 102 bpm 2016-03-13 Respiratory Rate 18 2016-03-13 BMI 31.29 kg/m2 2016-03-13 Blood pressure systolic 102 mmHg 2016-03-13 Blood pressure diastolic 72 mmHg 2016-03-13 MEDICATIONS Medication Instructions Dosage Frequency Start Date End Date Duration Status Minocycline HCl 100 MG Orally every 12 hrs 1 capsule 12h Active Aleve 220 MG Orally every 12 hrs 1 tablet as needed 12h Active Tylenol 325 MG Orally every 6 hrs 2 tablets as needed 6h Active Diflucan 150 MG Orally Once a day 1 tablet 24h Feb, 1 dose Active Lisinopril 20 MG Orally Once a day 1 tablet 24h Active Omeprazole 40 mg Orally Once a day 1 capsule 24h Jan, 30 day(s ) Active Bactrim DS 800-160 MG Orally Twice a day 1 tablet 12h Feb, Mar, 10 day(s) Active Fluticasone Propionate 50 MCG/ACT Nasally Once a day 1 spray in each nostril 24h Feb, 30 day(s) Active Xanax 0.5 MG Orally Three times a day PRN 1 tablet Active Meclizine HCl 25 MG Orally every 8 hours, PRN 1 tablet as needed 10 Active Ondansetron 4 MG sublingual 1 tablet twice daily as needed (every 6 hours) DISSOLVE ONE TABLET BY MOUTH Active RESULTS Name Result Date Reference Range STREP A (IN HOUSE) 2016-03-13 STREP A Negative Control + Lot # [id number] Exp date 12/04/17 PROCEDURES Procedure Date Ordered Related Diagnosis Body Site STREP A ASSAY W/OPTIC Mar 13, 2016 Office Visit, Est Pt., Level 3 Mar 13, 2016 IMMUNIZATIONS No Known Immunizations
--- OUTSIDE RECORDS SUMMARY | 2018-05-27 17:36 | XMS REPORT ---
Author Author JOAQUIN NOLAN Organization [facility] Address [address] [place] [address] Care Team Providers Care Chinese Teacher Name Role Phone JOAQUIN NOLAN Unavailable PROBLEMS Type Condition ICD9-CM Code SUR61-EQ Code Onset Dates Condition Status SNOMED Code Problem Chest discomfort R07.89 Active 182785980 Problem Secondary hypertension I15.9 Active 64960743 Problem Nausea R11.0 Active 595952664 Problem Well woman exam with routine gynecological exam Z01.419 Active 143555295 Problem Chronic nausea R11.0 Active 860423937 Problem Anxiety F41.9 Active 30793687 Problem Chest pain, unspecified type R07.9 Active 74435411 Problem Dyspepsia R10.13 Active 825054613 Problem Dizziness R42 Active 790429345 Problem History of benign brain tumor Z86.011 Active 053630710 Problem Essential hypertension I10 Active 92572834 Problem Shortness of breath R06.02 Active 467122872 Problem Migraine aura without headache G43.109 Active 733105600 Problem Anxiety about health F41.8 Active 164858018 ALLERGIES No Known Allergies SOCIAL HISTORY No smoking Hx information available PLAN OF CARE VITAL SIGNS MEDICATIONS No Known Medications RESULTS No Results PROCEDURES No Known procedures IMMUNIZATIONS No Known Immunizations
--- OUTSIDE RECORDS SUMMARY | 2018-05-27 17:36 | XMS REPORT ---
Author Author JOAQUIN NOLAN Organization [facility] Address [address] [place] [address] Care Team Providers Care Coater Operator Insulation Board Name Role Phone JOAQUIN NOLAN Unavailable PROBLEMS Type Condition ICD9-CM Code YNT51-GZ Code Onset Dates Condition Status SNOMED Code Problem Nausea R11.0 Active 764162870 Problem Chest pain, unspecified type R07.9 Active 56944106 Problem Secondary hypertension I15.9 Active 96551615 Problem Irregular menses N92.6 Active 695324652 Problem Gastroesophageal reflux disease without esophagitis K21.9 Active 049969885 Problem Chronic nausea R11.0 Active 435450239 Problem Dyspepsia R10.13 Active 086555800 Problem Well woman exam with routine gynecological exam Z01.419 Active 826613835 Problem Dizziness R42 Active 526317216 Problem Migraine aura without headache G43.109 Active 185225606 Problem Chest discomfort R07.89 Active 765011257 Problem Shortness of breath R06.02 Active 730338216 Problem History of benign brain tumor Z86.011 Active 866854533 Problem Anxiety about health F41.8 Active 791605737 Problem Essential hypertension I10 Active 82259162 Problem Anxiety F41.9 Active 21705281 ALLERGIES No Information SOCIAL HISTORY Never Assessed [...]
--- OUTSIDE RECORDS SUMMARY | 2018-05-27 17:36 | XMS REPORT ---
Author Author JOAQUIN NOLAN Organization [facility] Address [address] [place] [address] Care Team Providers Care Automobile And Property Underwriter Name Role Phone AWA NOLANNETTE Unavailable PROBLEMS Type Condition ICD9-CM Code TIQ20-LK Code Onset Dates Condition Status SNOMED Code Problem Nausea R11.0 Active 851599154 Problem Chest pain, unspecified type R07.9 Active 01264221 Problem Secondary hypertension I15.9 Active 50669546 Problem Irregular menses N92.6 Active 860004064 Problem Gastroesophageal reflux disease without esophagitis K21.9 Active 626536063 Problem Chronic nausea R11.0 Active 812654602 Problem Dyspepsia R10.13 Active 962873603 Problem Well woman exam with routine gynecological exam Z01.419 Active 763397653 Problem Dizziness R42 Active 382638330 Problem Migraine aura without headache G43.109 Active 165281209 Problem Chest discomfort R07.89 Active 817874112 Problem Shortness of breath R06.02 Active 089614484 Problem History of benign brain tumor Z86.011 Active 701360050 Problem Anxiety about health F41.8 Active 412531638 Problem Essential hypertension I10 Active 76420237 Problem Anxiety F41.9 Active 06943382 ALLERGIES Unknown Allergies SOCIAL HISTORY No smoking Hx information available PLAN OF CARE VITAL SIGNS MEDICATIONS Unknown Medications RESULTS No Results PROCEDURES Procedure Date Ordered Related Diagnosis Body Site PULMONARY FUNCTION TEST (IN-HOUSE) 2016-07-01 N/A RESPIRATORY FLOW VOLUME LOOP Jul 01, 2016 SPIROMETRY Jul 01, 2016 NEB/MDI DEMO Jul 01, 2016 IMMUNIZATIONS No Known Immunizations
--- OUTSIDE RECORDS SUMMARY | 2018-05-27 17:36 | XMS REPORT ---
Author Velvet Cloud [facility] eClinicalWorks Address Unknown Phone Unavailable Care Team Providers Care Building Appraiser Name Role Phone Velvet Willis CP Unavailable Allergies, Adverse Reactions, Alerts Substance Reaction Event Type N.K.D.A. 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 Problem Chronic fatigue syndrome R53.82 Active Assessment Acute pharyngitis, unspecified etiology J02.9 Active Assessment Lyme disease A69.20 Active Assessment Chronic fatigue syndrome R53.82 Active Medications Medication Code System Code Instructions Start Date End Date Status Dosage Fish Oil [facility] [address]-36 1000 MG Orally Once a day 1 capsule Xanax [facility] [address]-38 0.5 MG Orally Three times a day 1 tablet Benadryl [facility] [address]-36 25 MG Orally every 6 hrs 1 capsule as needed Zofran [facility] [address]-80 4 MG Orally Once a day 2 tablets Probiotic [facility] 97846-[address]64 - Orally not defined Super B Complex [facility] 0 - Orally not defined Prilosec [facility] [address]-78 20 MG Orally Once a day 2 capsules Depo-Provera [facility] [address]-30 150 MG/ML Intramuscular 1 ml Minocycline HCl [facility] [address]-56 100 MG Orally every 12 hrs 1 capsule FUENTES-e [facility] 35208-[address]41 200 MG Orally not defined Augmentin [facility] [address]-93 875-125 MG Orally every 12 hrs Mar 26, 2016 Apr 05, 2016 1 tablet Magnesium [facility] [address]-40 300 MG Orally Once a day 1 capsule with a meal Co Q 10 [facility] 14453-98036 60 MG Orally Once a day 1 capsule with a meal Procedures Procedure Coding System Code Date OFFICEOUTPATIENT VISIT NEW OFFICE OR OTHER OUTPATIENT VISIT FOR THE EVALUATION AND MANAGEMENT OF A NEW PATIENT, WHICH REQUIRES THESE 3 MCNEILL COMPONENTS. A DETAILED HISTORY A DETAILED EXAMINATION,MEDICAL DECISION MAKING OF LOW COMPLEXITY. CPT-4 04418 Mar 26, 2016 Charge billed by Lab CPT-4 NOBIL Mar 26, 2016 Vital Signs Date/Time: Mar 26, 2016 Blood Pressure Diastolic 82 mm Hg Blood Pressure Systolic 112 mm Hg Cardiac Monitoring Heart Rate 85 /min Respiratory Rate 16 /min BMI 31.62 Index Weight 208 lbs Height 68 in Oximetry 98 % Results No Known Results Summary Purpose eClinicalWorks Submission
--- OUTSIDE RECORDS SUMMARY | 2018-05-27 17:36 | XMS REPORT ---
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 Unknown Non Drug Allergy May, Unknown SOCIAL HISTORY No smoking Hx information available PLAN OF CARE VITAL SIGNS Height 68 in 2016-06-10 Weight 211 lbs 2016-06-10 BMI 32.08 kg/m2 2016-06-10 Blood pressure systolic 120 mm Hg 2016-06-10 Blood pressure diastolic 80 mm Hg 2016-06-10 MEDICATIONS Medication Instructions Dosage Frequency Start Date End Date Duration Status Magnesium 300 MG Orally Once a day 1 capsule with a meal 24h Active Fish Oil 1000 MG Orally Once a day 1 capsule 24h Active Prilosec 20 MG Orally Once a day 2 capsules 24h Active Minocycline HCl 100 MG Orally every 12 hrs 1 capsule 12h Active FUENTES-e 200 MG Active Xanax 0.5 MG Orally Three times a day 1 tablet 8h Active Super B Complex - Active Depo-Provera 150 MG/ML 1 ml Active Probiotic - Active Zofran 4 MG Orally Once a day 2 tablets 24h Active Co Q 10 60 MG Orally Once a day 1 capsule with a meal 24h Active Benadryl 25 MG Orally every 6 hrs 1 capsule as needed 6h Active RESULTS Name Result Date Reference Range Amylase, Serum 2016-06-10 Amylase, Serum 55 31-124 Lipase, Serum 2016-06-10 Lipase, Serum 33 0-59 Please note CBC with Differential/Platelet 2016-06-10 WBC 5.4 3.4-10.8 RBC 3.92 3.77-5.28 Hemoglobin 12.1 11.1-15.9 Hematocrit 37.3 34.0-46.6 MCV 95 79-97 MCH 30.9 26.6-33.0 MCHC 32.4 31.5-35.7 RDW 12.8 12.3-15.4 Platelets 275 150-379 Neutrophils 36 Lymphs 47 Monocytes 12 Eos 4 Basos 1 Immature Cells PROGRAM AND RESEARCH COORDINATOR Neutrophils (Absolute) 1.9 1.4-7.0 Lymphs (Absolute) 2.6 0.7-3.1 Monocytes(Absolute) 0.6 0.1-0.9 Eos (Absolute) 0.2 0.0-0.4 Baso (Absolute) 0.0 0.0-0.2 Immature Granulocytes 0 Immature Grans (Abs) 0.0 0.0-0.1 NRBC PROGRAM AND RESEARCH COORDINATOR Hematology Comments: PROGRAM AND RESEARCH COORDINATOR Sedimentation Rate-Westergren 2016-06-10 Sedimentation Rate-Westergren 5 0-32 CMP (Comprehensive Metabolic Panel) 2016-06-10 Glucose, Serum 101 65-99 BUN 17 6-20 Creatinine, Serum 0.64 0.57-1.00 eGFR If NonAfricn Am 115 >59 eGFR If Africn Am 133 >59 BUN/Creatinine Ratio 27 8-20 Sodium, Serum 137 134-144 Potassium, Serum 4.5 3.5-5.2 Chloride, Serum 103 96-106 Carbon Dioxide, Total 20 18-29 Calcium, Serum 8.7 8.7-10.2 Protein, Total, Serum 6.0 6.0-8.5 Albumin, Serum 4.2 3.5-5.5 Globulin, Total 1.8 1.5-4.5 A/G Ratio 2.3 1.1-2.5 Bilirubin, Total <0.2 0.0-1.2 Alkaline Phosphatase, S 44 39-117 AST (SGOT) 15 0-40 ALT (SGPT) 9 0-32 PROCEDURES Procedure Date Ordered Related Diagnosis Body Site Charge billed by Lab Jun 10, 2016 OFFICEOUTPATIENT VISIT EST OFFICE OR OTHER OUTPATIENT VISIT FOR THE EVALUATION AND MANAGEMENT OF AN ESTABLISHED PATIENT, WHICHREQUIRES AT LEAST 2 OF THESE 3 MCNEILL COMPONENTS, AN EXPANDED PROBLEM FOCUSED HISTORY,AN EXPANDED PROBLEM FOCUSED EXAMINATION Jun 10, 2016 IMMUNIZATIONS No Known Immunizations
--- OUTSIDE RECORDS SUMMARY | 2018-05-27 17:36 | XMS REPORT ---
Author Author JOAQUIN NOLAN Organization [employer] Address Unknown Phone Unavailable Care Team Providers Care Return Clerk Name Role Phone JOAQUIN NOLAN CP Unavailable [...] Instructions Start Date End Date Status Dosage Fluticasone Propionate [facility] [address]-55 50 MCG/ACT Nasally Once a day Feb 22, 2016 1 spray in each nostril Results No Known Results Summary Purpose eClinicalWorks Submission
--- OUTSIDE RECORDS SUMMARY | 2018-05-27 17:36 | XMS REPORT ---
Author Author GLORIA LANDAVERDE [facility] Address [address] [place] [address] Care Team Providers Care Treatment Supervisor Name Role Phone GLORIA LANDAVERDE Unavailable PROBLEMS Type Condition ICD9-CM Code VRH61-EO Code Onset Dates Condition Status SNOMED Code Problem Chest discomfort R07.89 Active 945544238 Problem Secondary hypertension I15.9 Active 43579589 Problem Nausea R11.0 Active 541655158 Problem Well woman exam with routine gynecological exam Z01.419 Active 115438791 Problem Chronic nausea R11.0 Active 772632128 Problem Anxiety F41.9 Active 43433817 Problem Chest pain, unspecified type R07.9 Active 01399020 Problem Dyspepsia R10.13 Active 018491499 Problem Dizziness R42 Active 959604603 Problem History of benign brain tumor Z86.011 Active 192190515 Problem Essential hypertension I10 Active 68170490 Problem Shortness of breath R06.02 Active 398210809 Problem Migraine aura without headache G43.109 Active 137907396 Problem Anxiety about health F41.8 Active 755064641 ALLERGIES No Known Allergies SOCIAL HISTORY No smoking Hx information available PLAN OF CARE VITAL SIGNS MEDICATIONS No Known Medications RESULTS No Results PROCEDURES No Known procedures IMMUNIZATIONS No Known Immunizations
--- OUTSIDE RECORDS SUMMARY | 2018-05-27 17:36 | XMS REPORT ---
Author Velvet Cloud [facility] eClinicalWorks Address Unknown Phone Unavailable Care Team Providers Care Sound Engineer Name Role Phone Velvet Willis CP Unavailable Allergies No Known Allergies Problems Problem Type Condition Code Onset Dates Condition Status Problem Chronic fatigue syndrome R53.82 Active Medications No Known Medications Results No Known Results Summary Purpose eClinicalWorks Submission
--- OUTSIDE RECORDS SUMMARY | 2018-05-27 17:36 | XMS REPORT ---
Author Velvet Cloud Organization [facility] Address [address] [place] [address] Care Team Providers Care Adolescent Psychiatrist Name Role Phone Velvet Willis Unavailable PROBLEMS Type Condition ICD9-CM Code BUG59-EJ Code Onset Dates Condition Status SNOMED Code Problem Obesity (BMI 30.0-34.9) E66.9 Active 199618422 Problem Insomnia, unspecified type G47.00 Active 205193735 Problem Chronic fatigue syndrome R53.82 Active 96953094 ALLERGIES No Information SOCIAL HISTORY Never Assessed [...]
--- OUTSIDE RECORDS SUMMARY | 2018-05-27 17:36 | XMS REPORT ---
Author Author JOAQUIN Mott Organization [facility] Address [address] [place] [address] Care Team Providers Care Trailer Body Assembler Name Role Phone JOAQUIN Mott Unavailable PROBLEMS Type Condition ICD9-CM Code ZWF04-HA Code Onset Dates Condition Status SNOMED Code Problem Secondary hypertension I15.9 Active 35010382 Problem Dyspepsia R10.13 Active 697993703 Problem Chest pain, unspecified type R07.9 Active 66089011 Problem Intractable migraine without aura and with status migrainosus G43.011 Active 473193746 Problem Gastroesophageal reflux disease without esophagitis K21.9 Active 736702567 Problem Dizziness R42 Active 462535967 Problem Chronic nausea R11.0 Active 334989068 Problem Irregular menses N92.6 Active 980644688 Problem Well woman exam with routine gynecological exam Z01.419 Active 881839833 Problem Migraine aura without headache G43.109 Active 343923111 Problem History of benign brain tumor Z86.011 Active 308663986 Problem Shortness of breath R06.02 Active 983470623 Problem Anxiety about health F41.8 Active 190090387 Problem Essential hypertension I10 Active 75556963 Problem Anxiety F41.9 Active 73798459 Problem Chest discomfort R07.89 Active 635173038 Problem Nausea R11.0 Active 011830990 ALLERGIES No Information ENCOUNTERS Encounter Location Date Diagnosis [facility] [address] [facility] [id number] [address] May, Intractable migraine without aura and with status migrainosus G43.011 and Vaginal discharge N89.8 [facility] [id number] [address] Feb, [facility] [id number] [address] Jan, Anxiety about health F41.8 [place] [address] [place] [id number] [place] [address] Dec, [place] [address] [address] Dec, Essential hypertension I10 ; Anxiety about health F41.8 ; Migraine aura without headache G43.109 ; Gastroesophageal reflux disease without esophagitis K21.9 and Wheezing R06.2 [place] [address] [address] Dec, Anxiety F41.9 [place] [address] [address] October, [place] [address] [address] Sep, Anxiety F41.9 [place] [address] [address] Aug, Anxiety F41.9 [place] [address] [address]309 Jul, Secondary hypertension I15.9 and Gastroesophageal reflux disease without esophagitis K21.9 [place] [address] [id number] [place] [address]- 2873 Jun, Migraine aura without headache G43.109 ; Essential hypertension I10 ; Anxiety F41.9 ; Secondary hypertension I15.9 ; Anxiety about health F41.8 ; Gastroesophageal reflux disease without esophagitis K21.9 and Irregular menses N92.6 [place] [id number] [place] [address] 68521- 2202 Jun, Shortness of breath R06.02 [place] [id number] [place] [address] 24221- 4648 Jun, [facility] [id number] [place] [address] May, Sore throat J02.9 and Viral pharyngitis J02.9 [facility] [address] [address] Mar, [facility] [id number] [place] [address] 08397- 2250 Mar, [facility] [id number] [place] [address] 73738- 9204 Mar, [facility] [address] [address]- [address] Mar, [facility] [id number] [place] [address] 95922- 9213 Mar, [facility] [address] [address] 8[address] Mar, Migraine aura without headache G43.109 ; Essential hypertension I10 ; History of benign brain tumor Z86.011 ; Anxiety F41.9 ; Secondary hypertension I15.9 ; Nausea R11.0 ; Chest discomfort R07.89 ; Anxiety about health F41.8 ; Shortness of breath R06.02 ; Dyspepsia R10.13 ; Dizziness R42 and 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 [facility] [id number] [place] [address] Feb, Sore throat J02.9 and Acute maxillary sinusitis, recurrence not specified J01.00 [facility] [id number] [place] [address] Feb, Burning with urination R30.0 [facility] [id number] [place] [address] 12457- 4171 Feb, [facility] [id number] [place] [address] 07667- 4622 19 Feb, 2016 [facility] [id number] [place] [address] 90726- 9396 15 Feb, 2016 [facility] [id number] [place] [address] 59464- 5678 Feb, [facility] [id number] [place] [address] Feb, Sore throat J02.9 and Allergic rhinitis, unspecified allergic rhinitis trigger, unspecified rhinitis seasonality J30.9 [facility] [address] [address]- 9[address] Jan, [facility] [address] [address]- 1564 Jan, Well woman exam with routine gynecological exam Z01.419 ; Shortness of breath R06.02 and Anxiety about health F41.8 [place] [address] 314[address]- 2[address] Jan, Anxiety F41.9 and Anxiety about health F41.8 [place] [address] 19870- 7785 Jan, Generalized anxiety disorder F41.1 [place] [address] 7[address]64- 8834 Jan, Chronic nausea R11.0 and Anxiety about health F41.8 [facility] [address] [address] Jan, Acute non-recurrent maxillary sinusitis J01.00 [place] [address] 81472- 9035 Jan, [facility] [address] 7[address]- 3257 Jan, [place] [address] 73921- 6214 Jan, Chronic nausea R11.0 ; Dyspepsia R10.13 ; Dizziness R42 and Encounter for Depo-Provera contraception Z30.42 [place] [address] 40837- 2434 Jan, [place] [address] [address] Dec, [facility] [id number] [place] [address] 90700- 7156 Dec, [facility] [id number] [place] [address] 36432- 6076 Dec, Essential hypertension I10 [facility] [id number] [place] [address] 53631- 7949 Dec, Chest discomfort R07.89 ; Essential hypertension I10 ; Anxiety about health F41.8 ; Shortness of breath R06.02 and History of benign brain tumor Z86.011 [facility] [id number] [place] [address] Dec, Anxiety F41.9 ; Chest pain, unspecified type R07.9 ; Secondary hypertension I15.9 and Nausea R11.0 [place] [address] [id number] [place] [address] 15481- 3840 Dec, [place] [address] [id number] [place] [address] 93267- 2810 Nov, [place] [address] [id number] [place] [address] 44243- 0150 Nov, Essential hypertension I10 ; History of benign brain tumor Z86.011 and Migraine aura without headache G43.109 [facility] [address] [place] [address] 07265- 7862 October, Essential hypertension I10 ; History of benign brain tumor Z86.011 and Headache, unspecified headache type R51 [place] [address] [address] [id number] [place] [address] 91301- 2542 October, [place] [id number] [place] [address] 75114- 3115 October, Elevated blood pressure I10 ; Encounter for Depo-Provera contraception Z30.42 ; Migraine aura without headache G43.109 and Encounter for surveillance of injectable contraceptive Z30.42 [facility] [address] [address] 12 Jul, 2015 Encounter for Depo-Provera contraception Z30.42 [facility] [address] [address] 139[address] Apr, Encounter for Depo-Provera contraception Z30.42 [facility] [id number] [place] [address] 18170- 9368 Apr, [facility] [id number] [place] [address] 20137- 8105 Mar, [facility] [id number] [place] [address] 95122- 7704 Feb, [facility] [id number] [place] [address] 81268- 6123 Feb, [facility] [id number] [place] [address] 92695- 5678 Feb, Sore throat 462 [facility] [id number] [place] [address] 81419- 9359 Jan, Encounter for Depo-Provera contraception V25.49 [facility] [address] [address] 0[address] Jan, [facility] [id number] [place] [address] 42820- 8622 Dec, Adjustment reaction to medical therapy 309.89 and Post- nasal drip 784.91 [facility] [address] [address] 2636 Dec, Routine health maintenance V70.0 ; Lumbago 724.2 ; Migraine 346.90 ; Acne cystica 706.1 and Tingling of skin 782.0 [facility] [place] [address] [id number] [place] [id number] Dec, Dental examination V72.2 [facility] [place] [address] [id number] [place] [id number] Nov, Dental examination V72.2 [facility] [address] [facility] [id number] Nov, Routine gynecological examination V72.31 ; Pap test, as part of routine gynecological examination V76.2 ; Breast cancer screening V76.10 and Encounter for initial prescription of injectable contraceptive V25.02 [facility] [place] [address] [id number] [place] [id number] October, Dental examination V72.2 [facility] [place] [address] [id number] [place] [id number] October, Dental examination V72.2 [facility] [address] [facility] [id number] [place] Sep, [facility] [id number] [address]- 3156 Sep, [facility] [id number] [address]- 75[address] Jul, [facility] [id number] [address]- 8641 Jul, [facility] [address] [address]- 5486 Jan, [facility] [id number] [address]- 0763 Jan, [facility] [id number] [address]- 2552 Jan, [facility] [id number] [address]- 4697 Jan, [facility] [id number] [address]- 6644 October, [facility] [address] [address]- 5331 October, [facility] [place] [facility] [id number] [place] [address]- 8265 27 Jul, 2013 [facility] [place] [facility] [address] [id number] [place] [address]- 5165 27 Jul, 2013 [facility] [place] [facility] [address] [id number] [place] [address]- 2546 18 Jul, 2013 [facility] [place] [facility] [address] [id number] [place] [address]- 8500 18 Jul, 2013 [facility] [place] [facility] [address] [id number] [place] [address]- 6756 18 Jul, 2013 [facility] [place] [facility] [address] [id number] [place] [address]- 5085 18 Jul, 2013 [facility] [place] [facility] [address] [facility] [id number] [place] [address]- 6233 14 Jul, 2013 [facility] [place] [facility] [address] [facility] [id number] [place] [address]- 1566 14 Jul, 2013 [facility] [place] [facility] [address] [facility] [id number] [place] [address]- 1926 13 Jul, 2013 [facility] [place] [facility] [address] [facility] [id number] [place] [address]- 0848 10 Jul, 2013 [facility] [place] [facility] [address] [facility] [id number] [place] [address]- 3647 10 Jul, 2013 [facility] [place] [facility] [address] [id number] [address]- 6436 27 Feb, 2012 [facility] [place] [facility] [address] [id number] [place] [address]- 2541 20 Sep, 2012 [facility] [place] [facility] [address] [id number] [place] [address]- 2546 17 Sep, 2012 [facility] [place] [facility] [address] [facility] [id number] [address]- 254 16 Sep, 2012 [facility] [place] [facility] [address] [id number] [address]- 4372 Jan, [facility] [address] [id number] [place] [address]- 8391 Nov, [facility] [place] [facility] [address] [id number] [place] [address]- 0735 May, [facility] [address] [facility] [id number] [place] [address]- 3486 May, [facility] [address] [id number] [place] [address]- 9770 May, [facility] [address] [id number] [place] [address]- 9562 May, [facility] [address] [id number] [place] [address]- 3181 May, [facility] [address] [place] [address]- 1826 May, [facility] [id number] [address]- 6919 May, [facility] [id number] [address]- 9546 Apr, [facility] [id number] [address]- 2969 Apr, [facility] [address] [id number] [place] [address]- 2112 October, [facility] [place] [facility] [address] [id number] [place] [address]- 2546 Sep, [facility] [place] [facility] [address] [id number] [place] [address]- 5598 Aug, [facility] [place] [facility] [address] [facility] [id number] [place] [address]- 1246 Jul, [facility] [place] [facility] [id number] [address]- 4906 Jul, [facility] [id number] [address]- 2546 Jul, [facility] [address] [address] 2546 May, [facility] [address] [address]- 2546 Feb, [facility] [address] [address] 2548 Apr, [facility] [address] [address]- 2549 Apr, [facility] [address] [address]- 8126 Mar, [facility] [address] [address]- 0782 Mar, IMMUNIZATIONS No Known Immunizations SOCIAL HISTORY Never Assessed REASON FOR VISIT Requesting medication PLAN OF CARE VITAL SIGNS MEDICATIONS No [...]
--- OUTSIDE RECORDS SUMMARY | 2018-05-27 17:37 | XMS REPORT ---
Author Author Velvet Willis Organization [facility] Address [address] [facility] [address] [place] [address] Care Team Providers Care High School Professional Name Role Phone Velvet Willis Unavailable PROBLEMS Type Condition ICD9-CM Code AVG06-EY Code Onset Dates Condition Status SNOMED Code Problem Obesity (BMI 30.0-34.9) E66.9 Active 794395950 Problem Insomnia, unspecified type G47.00 Active 992983850 Problem Chronic fatigue syndrome R53.82 Active 46306305 ALLERGIES Unknown Allergies SOCIAL HISTORY No smoking Hx information available PLAN OF CARE VITAL SIGNS MEDICATIONS Unknown Medications RESULTS No Results PROCEDURES No Known procedures IMMUNIZATIONS No Known Immunizations
--- OUTSIDE RECORDS SUMMARY | 2018-05-27 17:37 | XMS REPORT ---
Author Author JOAQUIN NOLAN Organization [facility] Address [address] [place] [address] Care Team Providers Care Biology Professor Name Role Phone AWA NOLANNETTE Unavailable PROBLEMS Type Condition ICD9-CM Code VSX05-HV Code Onset Dates Condition Status SNOMED Code Problem Nausea R11.0 Active 489196229 Problem Chest pain, unspecified type R07.9 Active 29493862 Problem Secondary hypertension I15.9 Active 91309826 Problem Irregular menses N92.6 Active 192083607 Problem Gastroesophageal reflux disease without esophagitis K21.9 Active 958563317 Problem Chronic nausea R11.0 Active 295153842 Problem Dyspepsia R10.13 Active 018902438 Problem Well woman exam with routine gynecological exam Z01.419 Active 398190217 Problem Dizziness R42 Active 962263382 Problem Migraine aura without headache G43.109 Active 364294345 Problem Chest discomfort R07.89 Active 933810157 Problem Shortness of breath R06.02 Active 562848999 Problem History of benign brain tumor Z86.011 Active 642830240 Problem Anxiety about health F41.8 Active 563241199 Problem Essential hypertension I10 Active 07072588 Problem Anxiety F41.9 Active 03984264 ALLERGIES No Information SOCIAL HISTORY Never Assessed PLAN OF CARE VITAL SIGNS MEDICATIONS Medication Instructions Dosage Frequency Start Date End Date Duration Status Alprazolam 0.5 MG Orally Twice a day TAKE ONE TABLET BY MOUTH TWICE DAILY 12h 28 Active RESULTS No Results PROCEDURES [...]
--- OUTSIDE RECORDS SUMMARY | 2018-05-27 17:37 | XMS REPORT ---
Author Author CARLO ZUÑIGA Organization [facility] Address [address] [place] [address] Care Team Providers Care Traffic Law Attorney Name Role Phone CARLO ZUÑIGA Unavailable PROBLEMS Type Condition ICD9-CM Code AII23-GJ Code Onset Dates Condition Status SNOMED Code Problem Chest discomfort R07.89 Active 672330868 Problem Secondary hypertension I15.9 Active 10378648 Problem Nausea R11.0 Active 658789919 Problem Well woman exam with routine gynecological exam Z01.419 Active 013719800 Problem Chronic nausea R11.0 Active 154407862 Problem Anxiety F41.9 Active 55244682 Problem Chest pain, unspecified type R07.9 Active 50250452 Problem Dyspepsia R10.13 Active 925834195 Problem Dizziness R42 Active 813885883 Assessment Viral pharyngitis J02.9 May, Active 8624582 Problem History of benign brain tumor Z86.011 Active 230534700 Problem Essential hypertension I10 Active 22791530 Assessment Sore throat J02.9 May, Active 853736803 Problem Shortness of breath R06.02 Active 319476147 Problem Migraine aura without headache G43.109 Active 888508235 Problem Anxiety about health F41.8 Active 534368316 ALLERGIES Substance Reaction Event Type Date Status N.K.D.A. Unknown Non Drug Allergy May, Unknown SOCIAL HISTORY No smoking Hx information available PLAN OF CARE VITAL SIGNS Height 68 in 2016-05-30 Weight 215.6 lbs 2016-05-30 Heart Rate 72 bpm 2016-05-30 Respiratory Rate 18 2016-05-30 BMI 32.78 kg/m2 2016-05-30 Blood pressure systolic 118 mmHg 2016-05-30 Blood pressure diastolic 80 mmHg 2016-05-30 MEDICATIONS Medication Instructions Dosage Frequency Start Date End Date Duration Status Probiotic - Active Xanax 0.5 MG Orally Three times a day PRN 1 tablet Active Tylenol 325 MG Orally every 6 hrs 2 tablets as needed 6h Active Fluticasone Propionate 50 MCG/ACT Nasally Once a day 1 spray in each nostril 24h Feb, 30 day(s) Active Lisinopril 20 MG Orally Once a day 1 tablet 24h Active Minocycline HCl 100 MG Orally every 12 hrs 1 capsule 12h Active Aleve 220 MG Orally every 12 hrs 1 tablet as needed 12h Active Ondansetron 4 MG sublingual 1 tablet twice daily as needed (every 6 hours) DISSOLVE ONE TABLET BY MOUTH Active Omeprazole 40 mg Orally Once a day 1 capsule 24h Jan, Active RESULTS Name Result Date Reference Range STREP A (IN HOUSE) 2016-05-30 STREP A Negative Control + Lot # [id number] Exp date 10-28-2017 PROCEDURES Procedure Date Ordered Related Diagnosis Body Site STREP A ASSAY W/OPTIC May 30, 2016 Office Visit, Est Pt., Level 3 May 30, 2016 IMMUNIZATIONS No Known Immunizations
--- OUTSIDE RECORDS SUMMARY | 2018-05-27 17:37 | XMS REPORT ---
Author Author Velvet Willis Organization [facility] Address [address] [place] [address] Care Team Providers Care Nonprofit Financial Controller Name Role Phone Velvet Willis Unavailable PROBLEMS Type Condition ICD9-CM Code [id number] Code Onset Dates Condition Status SNOMED Code Problem Insomnia, unspecified type G47.00 Active 285532604 Problem Chronic fatigue syndrome R53.82 Active 91259640 Assessment Peripheral edema R60.9 Aug, Active 42646728 Assessment Generalized abdominal pain R10.84 Aug, Active 900813767 ALLERGIES Substance Reaction Event Type Date Status N.K.D.A. Unknown Non Drug Allergy Aug, Unknown SOCIAL HISTORY No smoking Hx information available PLAN OF CARE VITAL SIGNS Heart Rate 72 /min 2016-09-16 Respiratory Rate 16 /min 2016-09-16 Temperature 98.1 degrees Fahrenheit 2016-09-16 Oximetry 99 % 2016-09-16 BMI 34.51 kg/m2 2016-09-16 Height 68 in 2016-09-16 Weight 227 lbs 2016-09-16 Blood pressure systolic 112 mm Hg 2016-09-16 Blood pressure diastolic 84 mm Hg 2016-09-16 MEDICATIONS Medication Instructions Dosage Frequency Start Date End Date Duration Status FUENTES-e 200 MG Active Probiotic - Active Co Q 10 60 MG Orally Once a day 1 capsule with a meal 24h Active Xanax 0.5 MG Orally Three times a day 1 tablet 8h Active Benadryl 25 MG Orally every 6 hrs 1 capsule as needed 6h Active Zofran 4 MG Orally Once a day 2 tablets 24h Active Prilosec 20 MG Orally Once a day 2 capsules 24h Active Magnesium 300 MG Orally Once a day 1 capsule with a meal 24h Active Fish Oil 1000 MG Orally Once a day 1 capsule 24h Active Super B Complex - Active Hydrochlorothiazide 25 MG Orally Once a day 1 tablet 24h Aug, Active Trazodone HCl 50 MG Orally at bedtime as needed for insomnia 3 tablets at bedtime Aug, Active RESULTS Name Result Date Reference Range Urinalysis, Routine Microscopic Examination Urine-Color light yellow Appearance clear Specific [place] 1.010 pH 7.0 Glucose neg Protein neg Occult Blood ne Bilirubin neg Urobilinogen,Semi-Qn 3.5 Nitrite, Urine neg Ketones neg WBC Esterase neg Urinalysis Gross Exam CXR Amylase, Serum 2016-09-16 Bridget Garcia [id number] Default Please note Amylase, Serum Lipase, Serum 2016-09-16 Please note Request Problem Specimen Identification Status Specimen Identification Status Lipase, Serum CBC with Differential/Platelet 2016-09-16 Request Problem Bands Blasts/blast like cells Megakaryocytes Metamyelocytes Myelocytes Other, Lineage Uncertain Promyelocytes Please note Hematology Comments: Immature Granulocytes Immature Grans (Abs) NRBC Neutrophils (Absolute) Baso (Absolute) Hematocrit WBC Monocytes(Absolute) Hemoglobin Eos (Absolute) MCV MCH MCHC RDW Platelets Lymphs Monocytes Eos Basos Immature Cells Lymphs (Absolute) Neutrophils RBC CMP (Comprehensive Metabolic Panel) 2016-09-16 Ambiguous Test Order Specimen Identification Status Bridget Garcia [id number] Default Please note Request Problem Request Problem Corrected Report Comment eGFR If Africn Am eGFR If NonAfricn Am Protein, Total, Serum AST (SGOT) ALT (SGPT) Alkaline Phosphatase, S Bilirubin, Total A/G Ratio Globulin, Total Albumin, Serum Carbon Dioxide, Total Chloride, Serum Potassium, Serum Sodium, Serum BUN/Creatinine Ratio Creatinine, Serum Glucose, Serum Calcium, Serum BUN PROCEDURES Procedure Date Ordered Related Diagnosis Body Site ECG RECORDING 2016-09-16 N/A ELECTROCARDIOGRAM COMPLETE ELECTROCARDIOGRAM, ROUTINE ECG WITH AT LEAST 12 LEADS; WITH INTERPRETATION AND REPORT September 16, 2016 Outside Labs Self-Pay Patients Only September 16, 2016 URINALYSIS AUTO WO SCOPE URINALYSIS, BY DIP STICK OR TABLET REAGENT FOR BILIRUBIN, GLUCOSE, HEMOGLOBIN, KETONES, LEUKOCYTES, NITRITE, PH, PROTEIN, SPECIFIC GRAVITY, UROBILINOGEN, ANY NUMBER OF THESE CONSTITUENTS; AUTOMATED, WITHOUTMICROSCOPY September 16, 2016 OFFICE OUTPATIENT VISIT EST OFFICE OR OTHER OUTPATIENT VISIT FOR THE EVALUATION AND MANAGEMENT OF AN ESTABLISHED PATIENT, WHICH REQUIRES AT LEAST 2 OF THESE 3 MCNEILL COMPONENTS, AN EXPANDED PROBLEM FOCUSED HISTORY,AN EXPANDED PROBLEM FOCUSED EXAMINATION September 16, 2016 IMMUNIZATIONS No Known Immunizations
--- OUTSIDE RECORDS SUMMARY | 2018-05-27 17:37 | XMS REPORT ---
Author Author Velvet Willis Organization [facility] Address [address] [place] [address] Care Team Providers Care Bean Snipper Name Role Phone Velvet Willis Unavailable PROBLEMS Type Condition ICD9-CM Code [id number] Code Onset Dates Condition Status SNOMED Code Problem Obesity (BMI 30.0-34.9) E66.9 Active 099273072 Problem Insomnia, unspecified type G47.00 Active 680511778 Problem Chronic fatigue syndrome R53.82 Active 75180040 ALLERGIES No Information ENCOUNTERS Encounter Location Date Diagnosis [facility], [place] [address] [place], [place] [id number] Aug, [facility] [place] [address] [place], [place] [phone] Apr, [facility] [place] [address] [place], [place] [id number] Mar, [facility] [place] [address] [place], [place] [id number] Feb, [facility] [place] [address] [place], [place] [id number] Feb, [facility] [place] [address] [place], [place] [phone] Feb, [facility] [address] [place], [place] [id number] Feb, Dysuria R30.0 ; Epigastric abdominal pain R10.13 ; Lyme disease A69.20 ; 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 ; 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 and Plantar fasciitis M72.2 [facility] [place] [address] [place], [place] [id number] October, [facility] [place] [address] [place], [place] [id number] Sep, [facility] [place] [address] [place], [place] [id number] Sep, [facility] [place] [address] [place], [place] [phone] Sep, [address] [id number] Sep, Lyme disease A69.20 ; Obesity (BMI 30.0-34.9) E66.9 and Peripheral edema R60.[address] [place], [place] [id number] Sep, [address] [id number] Aug, Peripheral edema R60.9 ; Generalized abdominal pain R10.84 and Insomnia, unspecified type G47.[address] [place], [place] [id number] May, [address] [id number] May, 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 ; 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 and Lyme disease A69.[address] [id number] May, [address] [id number] Apr, Lyme disease A69.[address] [id number] Mar, 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 ; Lyme disease A69.20 ; 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 ; Acute pharyngitis, unspecified etiology J02.9 and Chronic fatigue syndrome R53.[address] [id number] Mar, [address] [id number] Mar, 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 ; 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 ; Lyme disease A69.20 ; Chronic fatigue syndrome R53.82 and Acute pharyngitis, unspecified etiology J02.9 IMMUNIZATIONS No Known Immunizations SOCIAL HISTORY Never Assessed REASON FOR VISIT Medical records request PLAN OF CARE VITAL SIGNS MEDICATIONS Unknown Medications RESULTS No Results PROCEDURES No Known procedures INSTRUCTIONS MEDICATIONS ADMINISTERED No Known Medications MEDICAL (GENERAL) HISTORY Type Description Date Medical History lyme disease Medical History Heart issue Surgical History D&C 1993 Surgical History Brain Surgery 1997 Surgical History section Surgical History cholecystectomy Surgical History breast augmenetion
--- OUTSIDE RECORDS SUMMARY | 2018-05-27 17:37 | XMS REPORT ---
Author Velvet Cloud [facility] [employer] Address Unknown Phone Unavailable Care Team Providers Care Dye Range Operator Name Role Phone eVlvet Willis CP Unavailable Allergies No Known Allergies Problems Problem Type Condition Code Onset Dates Condition Status Problem Chronic fatigue syndrome R53.82 Active Medications No Known Medications Results No Known Results Summary Purpose e[employer] Submission
--- OUTSIDE RECORDS SUMMARY | 2018-05-27 17:37 | XMS REPORT ---
Author Author JOAQUIN NOLAN Organization [employer] Address Unknown Phone Unavailable Care Team Providers Care Manager Location Name Role Phone JOAQUIN NOLAN CP Unavailable [...]
--- OUTSIDE RECORDS SUMMARY | 2018-05-27 17:37 | XMS REPORT ---
Author Author DARIUS DEL CID [facility] Address [address] [place] [address] Care Team Providers Care Security Guard Supervisor Name Role Phone NEHEMIASDARIUS Unavailable PROBLEMS Type Condition ICD9-CM Code [id number] Code Onset Dates Condition Status SNOMED Code Problem Chest discomfort R07.89 Active 718243119 Problem Secondary hypertension I15.9 Active 18922809 Problem Nausea R11.0 Active 452552071 Problem Well woman exam with routine gynecological exam Z01.419 Active 574115578 Problem Chronic nausea R11.0 Active 459676096 Problem Anxiety F41.9 Active 25403726 Problem Chest pain, unspecified type R07.9 Active 53934312 Problem Dyspepsia R10.13 Active 047778068 Problem Dizziness R42 Active 390799663 Problem History of benign brain tumor Z86.011 Active 422442120 Problem Essential hypertension I10 Active 57941756 Assessment Burning with urination R30.0 Feb, Active 88418296 Problem Shortness of breath R06.02 Active 113792524 Problem Migraine aura without headache G43.109 Active 572593407 Problem Anxiety about health F41.8 Active 755211575 ALLERGIES Substance Reaction Event Type Date Status N.K.D.A. Unknown Non Drug Allergy Feb, Unknown SOCIAL HISTORY No smoking Hx information available PLAN OF CARE VITAL SIGNS Height 68 in 2016-03-12 Weight 209.8 lbs 2016-03-12 Heart Rate 88 bpm 2016-03-12 Respiratory Rate 20 2016-03-12 BMI 31.90 kg/m2 2016-03-12 Blood pressure systolic 130 mmHg 2016-03-12 Blood pressure diastolic 85 mmHg 2016-03-12 MEDICATIONS Medication Instructions Dosage Frequency Start Date End Date Duration Status Diflucan 150 MG Orally Once a day 1 tablet 24h Feb, 1 dose Active Aleve 220 MG Orally every 12 hrs 1 tablet as needed 12h Active Tylenol 325 MG Orally every 6 hrs 2 tablets as needed 6h Active Minocycline HCl 100 MG Orally every 12 hrs 1 capsule 12h Active Xanax 0.5 MG Orally Three times a day PRN 1 tablet Active Omeprazole 40 mg Orally Once a day 1 capsule 24h Jan, 30 day(s ) Active Bactrim DS 800-160 MG Orally Twice a day 1 tablet 12h 21 Feb, 2016 Mar, 10 day(s) Active Fluticasone Propionate 50 MCG/ACT Nasally Once a day 1 spray in each nostril 24h Feb, 30 day(s) Active Lisinopril 20 MG Orally Once a day 1 tablet 24h Active Meclizine HCl 25 MG Orally every 8 hours, PRN 1 tablet as needed 10 Active Ondansetron 4 MG sublingual 1 tablet twice daily as needed (every 6 hours) DISSOLVE ONE TABLET BY MOUTH Active RESULTS Name Result Date Reference Range UA LONG DIP (IN HOUSE) 2016-03-12 Lot # [id number] Exp date Clarity Clear Color Yellow Odor Yes GLU Negative OLAF Negative KET Negative SG 1.010 BLO Trace-Intact pH 6.5 Protein Negative URO 0.2 NIT Negative SOL Negative Lot # [id number] Exp date PROCEDURES Procedure Date Ordered Related Diagnosis Body Site URINALYSIS, AUTO, W/O SCOPE Mar 12, 2016 Office Visit, Est Pt., Level 3 Mar 12, 2016 IMMUNIZATIONS No Known Immunizations
--- OUTSIDE RECORDS SUMMARY | 2018-05-27 17:38 | XMS REPORT ---
Author Author BRYN VALADEZ [facility] Address [address] [place] [address] Care Team Providers Care Wire Insulator Name Role Phone BRYN VALADEZ Unavailable PROBLEMS Type Condition ICD9-CM Code IMM67-MI Code Onset Dates Condition Status SNOMED Code Problem Secondary hypertension I15.9 Active 08844128 Problem Dyspepsia R10.13 Active 957722797 Problem Chest pain, unspecified type R07.9 Active 58256909 Problem Intractable migraine without aura and with status migrainosus G43.011 Active 496266243 Problem Gastroesophageal reflux disease without esophagitis K21.9 Active 452307267 Problem Dizziness R42 Active 879781487 Problem Chronic nausea R11.0 Active 695168547 Problem Irregular menses N92.6 Active 758533488 Problem Well woman exam with routine gynecological exam Z01.419 Active 948720335 Problem Migraine aura without headache G43.109 Active 841588745 Problem History of benign brain tumor Z86.011 Active 223499735 Problem Shortness of breath R06.02 Active 212374963 Problem Anxiety about health F41.8 Active 827694612 Problem Essential hypertension I10 Active 21911322 Problem Anxiety F41.9 Active 36290879 Problem Chest discomfort R07.89 Active 746068551 Problem Nausea R11.0 Active 199844646 ALLERGIES No Known Allergies ENCOUNTERS Encounter Location Date Diagnosis [facility] [address] [id number] [address] Nov, [facility] [id number] [place] [address]78 May, Intractable migraine without aura and with status migrainosus G43.011 and Vaginal discharge N89.8 [facility] [id number] [place] [address] 18311- 7569 Feb, [facility] [id number] [place] [address] 59982- 5841 Jan, Anxiety about health F41.8 [place] [address] [address] Dec, [place] [address] [address] 47[address] Dec, Essential hypertension I10 ; Anxiety about health F41.8 ; Migraine aura without headache G43.109 ; Gastroesophageal reflux disease without esophagitis K21.9 and Wheezing R06.2 [place] [address] [address]- [address]99 Dec, Anxiety F41.9 [place] [address] [address]- 1201 October, [place] [address] 99322- 5570 Sep, Anxiety F41.9 [place] [address] 71619- 8046 Aug, Anxiety F41.9 [place] [address] 16895- 7373 Jul, Secondary hypertension I15.9 and Gastroesophageal reflux disease without esophagitis K21.9 [place] [id number] [place] [address] 81125- 5333 Jun, Migraine aura without headache G43.109 ; Essential hypertension I10 ; Anxiety F41.9 ; Secondary hypertension I15.9 ; Anxiety about health F41.8 ; Gastroesophageal reflux disease without esophagitis K21.9 and Irregular menses N92.6 [place] [address] 04151- 6204 Jun, Shortness of breath R06.02 [place] [id number] [place] [address] 76443- 9969 Jun, [facility] [address], [place] [address] May, Sore throat J02.9 and Viral pharyngitis J02.9 [facility] [id number] [place] [address] 83054- 6838 Mar, [facility] [id number] [place] [address] 99632- 3385 Mar, [facility] [id number] [place] [address] 52518- 3226 Mar, [facility] [id number] [place] [address] 71798- 0276 Mar, [facility] [id number] [place] [address] 22977- 0131 Mar, [facility] [id number] [place] [address] 65271- 3795 Mar, Migraine aura without headache G43.109 ; Essential hypertension I10 ; History of benign brain tumor Z86.011 ; Anxiety F41.9 ; Secondary hypertension I15.9 ; Nausea R11.0 ; Chest discomfort R07.89 ; Anxiety about health F41.8 ; Shortness of breath R06.02 ; Dyspepsia R10.13 ; Dizziness R42 and 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 [facility] [id number] [place] [address] 16327 -8611 Feb, Sore throat J02.9 and Acute maxillary sinusitis, recurrence not specified J01.00 [facility] [id number] [place] [address]124 -7089 Feb, Burning with urination R30.0 [facility] [id number] [place] [address] 08575- 5588 Feb, [facility] [id number] [place] [address] 73437- 2191 Feb, [facility] [id number] [place] [address] 29217- 7446 15 Feb, 2016 [facility] [id number] [place] [address] 81650- 4599 13 Feb, 2016 [facility] [address] 74744 -0094 02 Feb, 2016 Sore throat J02.9 and Allergic rhinitis, unspecified allergic rhinitis trigger, unspecified rhinitis seasonality J30.9 [place] [address] 05046- 5467 Jan, [place] [address] 16346- 0168 Jan, Well woman exam with routine gynecological exam Z01.419 ; Shortness of breath R06.02 and Anxiety about health F41.8 [place] [address] 85073- 0148 Jan, Anxiety F41.9 and Anxiety about health F41.8 [place] [id number] [place] [address] 54614- 4929 Jan, Generalized anxiety disorder F41.1 [place] [address] 31409- 7114 Jan, Chronic nausea R11.0 and Anxiety about health F41.8 [facility] [id number] [place] [address] 91827 -3019 Jan, Acute non-recurrent maxillary sinusitis J01.00 [facility] [id number] [place] [address] 51352- 7926 Jan, [place] [address] 28835- 9469 Jan, [place] [id number] [place] [address] 16701- 7120 Jan, Chronic nausea R11.0 ; Dyspepsia R10.13 ; Dizziness R42 and Encounter for Depo-Provera contraception Z30.42 [place] [address], [place] [address] Jan, [facility] [id number] [place] [address] 18429- 5183 Dec, [facility] [id number] [place] [address] 56143- 3833 Dec, [facility] [id number] [place] [address] 74002- 5079 Dec, Essential hypertension I10 [facility] [id number] [place] [address] 58901- 3887 Dec, Chest discomfort R07.89 ; Essential hypertension I10 ; Anxiety about health F41.8 ; Shortness of breath R06.02 and History of benign brain tumor Z86.011 [facility] [address], [place] [address] Dec, Anxiety F41.9 ; Chest pain, unspecified type R07.9 ; Secondary hypertension I15.9 and Nausea R11.0 [facility] [address] [place] [address] 41555- 1993 Dec, [place] [address] [place] [address] 43758- 7210 Nov, [facility] [address], [place] [address] Nov, Essential hypertension I10 ; History of benign brain tumor Z86.011 and Migraine aura without headache G43.109 [facility] [address], [place] [address] October, Essential hypertension I10 ; History of benign brain tumor Z86.011 and Headache, unspecified headache type R51 [facility] [address], [place] [address] October, [facility] [address] [place] [address] 22795- 5590 October, Elevated blood pressure I10 ; Encounter for Depo-Provera contraception Z30.42 ; Migraine aura without headache G43.109 and Encounter for surveillance of injectable contraceptive Z30.42 [facility] [address] [place] [address] 04735- 1167 Jul, Encounter for Depo-Provera contraception Z30.42 [facility] [address] [place] [address] 23444- 4965 Apr, Encounter for Depo-Provera contraception Z30.42 [facility] [id number] [place] [address] 31930- 9995 Apr, [facility] [id number] [place] [address] 34052- 0633 Mar, [facility] [id number] [place] [address] 30302- 2830 Feb, [facility] [id number] [place] [address] 11850- 2391 Feb, [facility] [id number] [place] [address] 60669- 8285 Feb, Sore throat 462 [facility] [address] [place] [address] 63534- 8285 Jan, Encounter for Depo-Provera contraception V25.49 [place] [id number] [place] [address] 54120- 8454 Jan, [facility] [address] [place] [address] 45085- 7023 Dec, Adjustment reaction to medical therapy 309.89 and Post- nasal drip 784.91 [facility] [address] [place] [address] 57717- 1354 Dec, Routine health maintenance V70.0 ; Lumbago 724.2 ; Migraine 346.90 ; Acne cystica 706.1 and Tingling of skin 782.0 [facility] [place] [address] [id number] Dec, Dental examination V72.2 [facility] [place] [address] [id number] [place] [id number] Nov, Dental examination V72.2 [facility] [address] [id number], [place] [address] Nov, Routine gynecological examination V72.31 ; Pap test, as part of routine gynecological examination V76.2 ; Breast cancer screening V76.10 and Encounter for initial prescription of injectable contraceptive V25.02 [facility] [place] [address] [id number] [place] [id number] October, Dental examination V72.2 [facility] [place] [address] [id number] [place] [id number] October, Dental examination V72.2 [facility] [address] [id number] Sep, [facility] [address] [facility] [id number], [place] [address]- 6518 Sep, [facility] [id number], [place] [address]- 7233 Jul, [facility] [id number], [place] [address]- 6386 Jul, [facility] [id number], [place] [address]- 0751 Jan, [facility] [id number], [place] [address]- 9842 Jan, [facility] [address] [facility] [id number] Jan, [facility] [address] [facility] [id number] [address] 9529 Jan, [facility] [id number] October, [facility] [place] [facility] [address] [facility] [id number] [place] [address]- 0538 October, [facility] [place] [facility] [address] [id number] [place] [address]- 3006 Jul, [facility] [place] [facility] [address] [id number] [place] [address]- 7019 Jul, [facility] [place] [facility] [address] [id number] [place] [address]- 3604 Jul, [facility] [place] [facility] [address] [id number] [place] [address]- 9134 Jul, [facility] [place] [facility] [address] [id number] [place] [address]- 4633 18 Jul, 2013 [facility] [place] [facility] [address] [facility] [id number] [place] [address]- 7328 18 Jul, 2013 [facility] [place] [facility] [address] [id number] [place] [address]- 5567 14 Jul, 2013 [facility] [place] [facility] [address] [id number] [place] [address]- 8432 14 Jul, 2013 [facility] [place] [facility] [address] [facility] [id number] [place] [address]- 4876 13 Jul, 2013 [facility] [place] [facility] [address] [facility] [id number] [place] [address]- 2862 10 Jul, 2013 [facility] [place] [facility] [address] [facility] [id number], [place] [address]- 7545 10 Jul, 2013 [facility] [place] [facility] [address] [id number] [place] [address]- 7436 27 Feb, 2013 [facility] [place] [facility] [address] [id number], [place] [address]- 7066 20 Feb, 2013 [facility] [place] [facility] [address] [facility] [id number], [place] [address]- 1660 17 Feb, 2013 [facility] [place] [facility] [address] [id number], [place] [address] 2546 16 Feb, 2013 [facility] [address] [id number] [place] [address]- 4015 Jan, [facility] [address] [id number] [place] [address]- 7526 Nov, [facility] [address] [place] [address]- 9536 May, [facility] [address] [id number] [place] [address]- 5886 May, [facility] [address] [id number] [place] [address]- 9031 May, [facility] [address] [id number] [place] [address]- 7213 May, [facility] [address] [place] [address]- 2610 May, [facility] [id number] [place] [address]- 7444 May, [facility] [id number] [place] [address]- 8846 May, [facility] [id number] [place] [address]- 9497 Apr, [facility] [address] [id number] [place] [address]- 3816 Apr, [facility] [place] [facility] [address] [id number] [place] [address]- 2546 October, [facility] [place] [facility] [address] [id number] [place] [address]- 3486 Sep, [facility] [place] [facility] [address] [facility] [id number] [place] [address]- 2546 Aug, [facility] [id number] [place] [address]- 5586 Jul, [facility] [address], [place] [address]- 2546 Jul, [facility] [address] [place] [address] 89231 2546 Jul, [facility] [address], [place] [address]- 2546 May, [facility] [id number] [place] [address] 92771- 2546 Feb, [facility] [id number] [place] [address] 87851- 2546 Apr, [facility] [id number] [place] [address] 77453- 2546 Apr, [facility] [id number] [place] [address] 57105- 2546 Mar, [facility] [id number] [place] [address] 50108- 2546 Mar, IMMUNIZATIONS Vaccine Route Administration Date Status TORADOL (IM) 60 MG/2ML (UP TO 15 MG) IM Intramuscular May 22, 2017 Administered SOCIAL HISTORY Never Assessed REASON FOR VISIT Migraines x 3-4 days- vomiting because they hurt so bad [place], itching, burning, swollen with clear discharge. denies odor x 6 days PLAN OF CARE Activity Details Follow Up prn Reason: VITAL SIGNS Height 68 in 2017-05-22 Weight 220 lbs 2017-05-22 Temperature 97.4 degrees Fahrenheit 2017-05-22 Heart Rate 72 bpm 2017-05-22 Respiratory Rate 20 2017-05-22 BMI 33.45 kg/m2 2017-05-22 Blood pressure systolic 116 mmHg 2017-05-22 Blood pressure diastolic 70 mmHg 2017-05-22 MEDICATIONS Medication Instructions Dosage Frequency Start Date End Date Duration Status Ondansetron 4 MG sublingual 1 tablet twice daily as needed (every 6 hours) DISSOLVE ONE TABLET BY MOUTH Active Vitamin D-Vitamin K - Active Multivitamin Adult - Active Minocycline HCl 100 MG Orally every 12 hrs 1 capsule 12h Active Zithromax 1 GM Active Xanax 0.5 MG Orally Twice a day 1 tablet 12h 28 days Active Tramadol HCl 50 mg Orally every 8 hrs 1 tablet as needed 8h Active Super B Complex Active Trazodone HCl 150 MG Orally Once a day 1 tablet at bedtime as needed 24h Active FUENTES-e 400 MG Active Omeprazole 40 mg Orally Once a day 1 capsule 24h 90 days Active Vitamin C Adult Gummies 125 MG Active Probiotic - Active Coartem 20-120 MG Active Lisinopril 20 mg Orally Once a day 1 tablet 24h 90 days Active RESULTS No Results PROCEDURES Procedure Date Ordered Result Body Site URINALYSIS, AUTO, W/O SCOPE May 22, 2017 CULTURE, BACTERIA, OTHER May 22, 2017 TORADOL (IM) 60 MG/2ML (UP TO 15 MG) May 22, 2017 THER/PROPH/DIAG INJ, SC/IM May 22, 2017 INSTRUCTIONS MEDICATIONS ADMINISTERED No Known Medications [...]
--- OUTSIDE RECORDS SUMMARY | 2018-05-27 17:38 | XMS REPORT ---
Author Author JOAQUIN NOLAN Organization [employer] Address Unknown Phone Unavailable Care Team Providers Care Gallery Or Museum Curator Name Role Phone JOAQUIN NOLAN CP Unavailable [...] Instructions Start Date End Date Status Dosage Clonidine HCl [facility] [address]-06 0.1 MG Orally twice a day Apr 01, 2016 1 tablet Results No Known Results Summary Purpose [employer] Submission
--- OUTSIDE RECORDS SUMMARY | 2018-05-27 17:38 | XMS REPORT ---
Author Author JOAQUIN NOLAN [facility] Address [address] [place] [address] Care Team Providers Care Search Engine Optimization Strategist Name Role Phone AWA NOLANNETTE Unavailable PROBLEMS Type Condition ICD9-CM Code LUP85-PG Code Onset Dates Condition Status SNOMED Code Problem Nausea R11.0 Active 966468067 Problem Chest pain, unspecified type R07.9 Active 13419129 Problem Secondary hypertension I15.9 Active 07761369 Problem Irregular menses N92.6 Active 924116940 Problem Gastroesophageal reflux disease without esophagitis K21.9 Active 565052960 Problem Chronic nausea R11.0 Active 282623559 Problem Dyspepsia R10.13 Active 448339483 Problem Well woman exam with routine gynecological exam Z01.419 Active 091994065 Problem Dizziness R42 Active 902819039 Problem Migraine aura without headache G43.109 Active 493241310 Problem Chest discomfort R07.89 Active 618182358 Problem Shortness of breath R06.02 Active 818218078 Problem History of benign brain tumor Z86.011 Active 854943065 Problem Anxiety about health F41.8 Active 554178329 Problem Essential hypertension I10 Active 50058881 Problem Anxiety F41.9 Active 77610770 ALLERGIES Substance Reaction Event Type Date Status N.K.D.A. Unknown Non Drug Allergy Jun, Unknown SOCIAL HISTORY No smoking Hx information available PLAN OF CARE Activity Details Follow Up 3 Months, prn Reason:anxiety VITAL SIGNS Height 68 in 2016-07-14 Weight 228.6 lbs 2016-07-14 Temperature 98.0 degrees Fahrenheit 2016-07-14 Heart Rate 76 bpm 2016-07-14 Respiratory Rate 18 2016-07-14 BMI 34.75 kg/m2 2016-07-14 Blood pressure systolic 102 mmHg 2016-07-14 Blood pressure diastolic 78 mmHg 2016-07-14 MEDICATIONS Medication Instructions Dosage Frequency Start Date End Date Duration Status Super B Complex Active Lisinopril 20 MG Orally Once a day 1 tablet 24h Active Coartem 20-120 MG Active FUENTES-e 400 MG Active Minocycline HCl 100 MG Orally every 12 hrs 1 capsule 12h Active Ondansetron 4 MG sublingual 1 tablet twice daily as needed (every 6 hours) DISSOLVE ONE TABLET BY MOUTH Active Vitamin C Adult Gummies 125 MG Active Xanax 0.5 MG Orally Twice a day 1 tablet 12h Active Omeprazole 40 mg Orally Once a day 1 capsule 24h Active Probiotic - Active Vitamin D-Vitamin K - Active Tramadol HCl 50 mg Orally every 8 hrs 1 tablet as needed 8h Active Multivitamin Adult - Active Fluticasone Propionate 50 MCG/ACT Nasally Once a day 1 spray in each nostril 24h Feb, 30 day(s) Active Trazodone HCl 150 MG Orally Once a day 1 tablet at bedtime as needed 24h Active Zithromax 1 GM Active RESULTS Name Result Date Reference Range TEST, URINE (IN HOUSE) 2016-07-14 RESULTS negative Lot # [id number] Control + Exp date 09/2017 [employer] 2016-07-14 PROCEDURES Procedure Date Ordered Related Diagnosis Body Site URINE TEST Jul 14, 2016 No Charge Jul 14, 2016 Office Visit, Est Pt., Level 4 Jul 14, 2016 IMMUNIZATIONS No Known Immunizations
--- OUTSIDE RECORDS SUMMARY | 2018-05-27 17:38 | XMS REPORT ---
Author Author GLORIA LANDAVERDE [facility] Address [address] [place] [address] Care Team Providers Care Panel Instrument Repairer Name Role Phone GLORIA LANDAVERDE Unavailable PROBLEMS Type Condition ICD9-CM Code PEH75-HG Code Onset Dates Condition Status SNOMED Code Problem Chest discomfort R07.89 Active 904942101 Problem Secondary hypertension I15.9 Active 56785196 Problem Nausea R11.0 Active 924450834 Problem Well woman exam with routine gynecological exam Z01.419 Active 486936326 Problem Chronic nausea R11.0 Active 552760748 Problem Anxiety F41.9 Active 52737254 Problem Chest pain, unspecified type R07.9 Active 83267887 Problem Dyspepsia R10.13 Active 454627234 Problem Dizziness R42 Active 717547537 Problem History of benign brain tumor Z86.011 Active 864509822 Problem Essential hypertension I10 Active 29312653 Problem Shortness of breath R06.02 Active 239190801 Problem Migraine aura without headache G43.109 Active 687395638 Problem Anxiety about health F41.8 Active 382525161 ALLERGIES No Known Allergies SOCIAL HISTORY No smoking Hx information available PLAN OF CARE VITAL SIGNS MEDICATIONS No Known Medications RESULTS No Results PROCEDURES No Known procedures IMMUNIZATIONS No Known Immunizations
--- OUTSIDE RECORDS SUMMARY | 2018-05-27 17:38 | XMS REPORT | Continuity of Care Document ---
Author Author [facility] Organization [facility] Address Unknown Phone Unavailable Care Team Providers Care Science Editor Name Role Phone NO, LOCAL PHYSICIAN PP Unavailable Insurance Providers Payer Name Policy Number Subscriber Name Relationship Self Pay Jessica Devi 01 Self / Same As Patient Advance Directives Directive Response Recorded Date Advance Directives N 12/10/12 9:15am Organ Donor N 12/10/12 9:15am Problems No Known Problems or Medical conditions. Social History History Response Recorded Date/Time Alcohol Use Occasionally Uses 12/10/12 5: 45am Recreational Drug Use N 12/10/12 5:45am Allergies, Adverse Reactions, Alerts Allergen Type Severity Reaction Last Updated No Known Drug Allergies 12/10/12 Medications Medication Dose Units Route Sig Qty Days Acetaminophen/Hydrocodone Bitart (Lortab 7.5 Mg) 1 - 2 Ea PO Q 4 - 6 HR PRN [Sleep Aid] 1 Tab PO HS Alprazolam (Xanax) 1 Tab PO HS PRN Response Recorded Date/Time Status not known Unknown Results Test Date Result Interp. Ref. Range Alanine Aminotransferase (ALT/SGPT) December 10, 2012 5:58am 29 U/L L 30-65 Albumin December 10, 2012 5:58am 4.0 G/DL N 3.4-5.0 Alkaline Phosphatase December 10, 2012 5:58am 75 U/L N 50-136 Amylase Level December 10, 2012 5:58am 33 U/ L N 25-115 Aspartate Amino Transf (AST/SGOT) December 10, 2012 5:58am 14 U/L L 15-37 BUN/Creatinine Ratio December 10, 2012 5:58am 19 - Basophils # (Auto) December 10, 2012 5:58am 0.0 10^3/uL N 0.0-0.1 Basophils (%) (Auto) December 10, 2012 5:58am 0 % N 0-10 Blood Urea Nitrogen December 10, 2012 5:58am 13 MG/DL N 7-18 Calcium Level December 10, 2012 5:58am 8.4 MG/DL L 8.5-10.1 Carbon Dioxide Level December 10, 2012 5:58am 27 MMOL/L N 21-32 Chloride Level December 10, 2012 5:58am 99 MMOL/L L 101-110 Creatinine December 10, 2012 5:58am 0.7 MG/ DL N 0.6-1.3 Eosinophils # (Auto) December 10, 2012 5:58am 0.1 10^3/uL N 0.0-0.3 Eosinophils (%) (Auto) December 10, 2012 5:58am 1 % N 0-10 Glucose Level December 10, 2012 5:58am 104 MG/DL N 74-106 Hematocrit December 10, 2012 5:58am 39 % N 35-52 Hemoglobin December 10, 2012 5:58am 13.5 G/ DL N 11.5-16.0 Lipase December 10, 2012 5:58am 76 U/L N 73-393 Lymphocytes # (Auto) December 10, 2012 5:58am 1.2 X 10^3 N 1.0-4.0 Lymphocytes (%) (Auto) December 10, 2012 5:58am 11 % L 12-44 Mean Corpuscular Hemoglobin December 10, 2012 5:58am 31 PG N 25-34 Mean Corpuscular Hemoglobin Concent December 10, 2012 5:58am 35 G/DL N 32-36 Mean Corpuscular Volume December 10, 2012 5:58am 90 FL N 80-99 Mean Platelet Volume December 10, 2012 5:58am 9.5 FL N 7.4-10.4 Monocytes # (Auto) December 10, 2012 5:58am 0.8 X 10^3 N 0.0-1.0 Monocytes (%) (Auto) December 10, 2012 5:58am 7 % N 0-12 Neutrophils # (Auto) December 10, 2012 5:58am 8.4 X 10^3 H 1.8-7.8 Neutrophils (%) (Auto) December 10, 2012 5:58am 81 % H 42-75 Platelet Count December 10, 2012 5:58am 260 10^3/uL N 130-400 Potassium Level December 10, 2012 5:58am 3.6 MMOL/L N 3.6-5.0 Red Blood Count December 10, 2012 5:58am 4.31 10^6/uL L 4.35-5.85 Red Cell Distribution Width December 10, 2012 5:58am 12.0 % N 10.0-14.5 Serum Test, Qualitative July 27, 2007 1:40pm Negative - Sodium Level December 10, 2012 5:58am 133 MMOL/L L 135-145 Total Bilirubin December 10, 2012 5:58am 0.3 MG/DL N 0.0-1.0 Total Protein December 10, 2012 5:58am 7.2 G /DL N 6.4-8.2 Urine Bacteria December 10, 2012 5:49am TRACE /HPF - Urine Bilirubin December 10, 2012 5:49am NEGATIVE - Urine Casts December 10, 2012 5:49am NONE / LPF - Urine Clarity December 10, 2012 5:49am CLEAR - Urine Color December 10, 2012 5:49am YELLOW - Urine Crystals December 10, 2012 5:49am NONE /LPF - Urine Culture Indicated December 10, 2012 5:49am NO - Urine Glucose (UA) December 10, 2012 5:49am NEGATIVE - Urine Ketones December 10, 2012 5:49am 4+ H - Urine Leukocyte Esterase December 10, 2012 5:49am 1+ H - Urine Mucus December 10, 2012 5:49am MODERATE /LPF H - Urine Nitrite December 10, 2012 5:49am NEGATIVE - Urine Protein December 10, 2012 5:49am 2+ H - Urine RBC December 10, 2012 5:49am 2-5 /HPF H - Urine Specific Elmo December 10, 2012 5:49am 1.025 H - Urine Squamous Epithelial Cells December 10, 2012 5:49am 0-2 /HPF - Urine Urobilinogen December 10, 2012 5:49am 1 MG/DL - Urine WBC December 10, 2012 5:49am 0-2 /HPF - Urine pH December 10, 2012 5:49am 6 - White Blood Count December 10, 2012 5:58am 10.4 10^3/uL N 4.3-11.0 Estimat Glomerular Filtration Rate December 10, 2012 5:58am > 60 - Urine RBC (Auto) December 10, 2012 5:49am 3+ H - Encounters Encounter Location Date/Time Departed Emergency Room [facility] 8:01am
--- OUTSIDE RECORDS SUMMARY | 2018-05-27 17:39 | XMS REPORT | Continuity of Care Document ---
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 mmol/L 135-145 Serum or plasma potassium measurement (moles/volume) 3.8 mmol/L 3.6-5.0 Serum or plasma chloride measurement (moles/volume) 102 mmol/L 98-107 Carbon dioxide 25 mmol/L 21-32 Serum or plasma anion gap determination (moles/volume) 11 mmol/L 5-14 Serum or plasma urea nitrogen measurement (mass/volume) 13 mg/dL 7-18 Serum or plasma creatinine measurement (mass/volume) 0.69 mg/dL 0.60-1.30 Serum or plasma urea nitrogen/creatinine mass ratio 19 NRG Serum or plasma creatinine measurement with calculation of estimated glomerular filtration rate > NRG Serum or plasma glucose measurement (mass/volume) 94 mg/dL 70-105 Serum or plasma calcium measurement (mass/volume) 9.2 mg/dL 8.5-10.1 Serum or plasma total bilirubin measurement (mass/volume) 0.3 mg/dL 0.1-1.0 Serum or plasma alkaline phosphatase measurement (enzymatic activity/volume) 76 U/L 40-136 Serum or plasma aspartate aminotransferase measurement (enzymatic activity/ volume) 23 U/L 5-34 Serum or plasma alanine aminotransferase measurement (enzymatic activity/volume ) 33 U/L 0-55 Serum or plasma protein measurement (mass/volume) 7.1 g/dL 6.4-8.2 Serum or plasma albumin measurement (mass/volume) 3.9 g/dL 3.2-4.5 CALCIUM CORRECTED 9.3 mg/dL 8.5-10.1 Lipase - 05/27/18 15:45 Lipase 13 U/L 8-78 Blood manual differential performed detection - 05/27/18 15:45 Blood monocytes/100 leukocytes 3 % NRG Manual blood segmented neutrophils/100 leukocytes 78 % NRG Blood band neutrophils/100 leukocytes 1 % NRG Manual blood lymphocytes/100 leukocytes 18 % NRG Manual eosinophils/100 leukocytes in nose 0 % NRG Manual blood basophils/100 leukocytes 0 % NRG Blood erythrocyte morphology finding identification NORMAL NRG Encounters ACCT No. Visit Date/Time Discharge Status Pt. Type Provider Facility Loc./Unit Complaint [id number] 02/13/2014 17:00:00 02/13/2014 23:59:59 CLS Outpatient GARRETT HERNDON DO Nabil [id number] 02/08/2014 10:45:00 02/08/2014 23:59:59 CLS Outpatient HERNDON DO GARRETT K [id number] 11/01/2013 18:32:00 11/01/2013 23:59:59 CLS Outpatient HERNDON DO GARRETT K [id number] 08/09/2013 13:30:00 08/09/2013 23:59:59 CLS Outpatient DUSTY APPLE MD [id number] 08/01/2013 15:56:00 08/01/2013 23:59:59 CLS Outpatient USHA OLSEN APRN [id number] 03/07/2013 17:51:00 03/07/2013 23:59:59 CLS Outpatient USHA OLSEN APRN [id number] 05/25/2012 16:34:00 05/25/2012 23:59:59 CLS Outpatient GARRETT HERNDON DO [place] [id number] 04/22/2012 10:03:00 04/22/2012 23:59:59 CLS Outpatient YANICK GAUTHIER GARRETT K [id number] 02/01/2013 15:00:00 Document Registration [id number] 01/17/2016 08:31:00 01/17/2016 23:59:59 CLS Outpatient YOHAN MORGAN MD [facility] CARD SOB,ANGINA [id number] 01/11/2016 09:05:00 01/11/2016 23:59:59 CLS Outpatient GARRETT HERNDON DO [facility] RAD HX OF BENIGN BRAIN TUMOR, CHEST DISCOMFORT [id number] 12/10/2012 08:01:00 12/10/2012 15:55:00 DIS [facility] [id number] 05/27/2018 16:12:00 Document Registration [id number] 06/04/2012 15:19:00 Document Registration [id number] 08/11/2011 12:53:00 Document Registration [id number] 02/21/2016 13:05:00 Document Registration [id number] 02/14/2018 14:11:00 02/14/2018 17:49:00 DIS Emergency [facility] [id number] 12/18/2017 08:20:00 12/18/2017 23:59:59 [facility] Outpatient JOAQUIN NOLAN [facility] [id number] 12/18/2017 08:20:00 Document Registration [id number] 11/23/2017 15:00:00 Document Registration [id number] 05/22/2017 14:35:00 Document Registration [id number] 02/21/2016 18:06:00 Document Registration
--- NOTE | 2018-05-27 17:57 | Diagnostic Imaging Report ---
INDICATION: Right lower quadrant pain x3 days CT of the abdomen and pelvis obtained with IV contrast bolus. There is no previous CT for comparison. The visualized portions of the lung bases show dependent atelectatic changes. There is no pleural fluid collection. There is no free intraperineal air. The liver shows no focal lesion. Patient has had cholecystectomy. The spleen, adrenals, and pancreas are normal in appearance. The right kidney shows no hydronephrosis. There is patchy low-density change in the right renal cortex, suspicious for pyelonephritis. There is some mild patchy low-density change in the superior pole of the left kidney as well. There is no renal stone. There is no retroperitoneal mass or adenopathy. There is no ascites or abnormal fluid collection. Visualized bowel loops show prominent stool throughout the colon. There is a small ventral hernia in the midline containing fat. The appendix appears unremarkable. There is a trace of free fluid in the pelvis which may be physiologic. IMPRESSION: There is an abnormal appearance of the nephrograms on both sides with patchy low-density change in the right kidney and some minimal low-density change in the superior pole of the left kidney. The findings are suspicious for pyelonephritis. Recommend correlation with urinalysis. There is no renal stone or hydronephrosis. Patient has had previous cholecystectomy. The appendix appears normal. There is a trace of free fluid in the pelvis which may be physiologic. Dictated by: Dictated on workstation # [id number]
[2018-05-27] MEDS ORDERED: NS IV 1000 ML 1,000 ML IV SCH (18:04)
[2018-05-27] MEDS ORDERED: CIPR-225 PO (18:58)
[2018-05-27] MEDS ORDERED: TRAM50TA2 PO (18:58)
[2018-05-27 19:20] VITALS: BP 119/72
== END 2018-05-27 19:20 | disposition home or self-care (01) ==
LOC: EDUNIT# 15:20 → ER 15:22
DX: N39.0 Urinary tract infection, site not specified (principal); F17.200 Nicotine dependence, unspecified, uncomplicated; Z87.448 Personal history of other diseases of urinary system; Z90.49 Acquired absence of other specified parts of digestive tract; Z87.19 Personal history of other diseases of the digestive system; Z86.011 Personal history of benign neoplasm of the brain
CPT/HCPCS: 36415; 74177; 80053; 81000; 83690; 84703; 85007; 85027

== ENCOUNTER 2021-07-31 10:46 | Emergency (ER) | payer MEDICAID ==
[~2021-07-31] VITALS: Ht 172 cm; Wt 90.0 kg
[~2021-07-31 10:46] MED LIST changes: +CIPR-225 PO; +TRM50T PO
[2021-07-31 11:00] LABS: BILIRUBIN,URINE NEGATIVE (NEGATIVE); CLARITY,URINE TURBID; COLOR,URINE YELLOW; GLUCOSE, URINE (UA) NEGATIVE (NEGATIVE); KETONES,URINE NEGATIVE (NEGATIVE); LEUKOCYTE ESTERASE ,URINE NEGATIVE (NEGATIVE); NITRITE,URINE NEGATIVE (NEGATIVE); PROTEIN,URINE NEGATIVE (NEGATIVE)
[2021-07-31 11:13] LABS: BACTERIA,URINE NEGATIVE /HPF; RBC,URINE >100 /HPF; SQUAMOUS EPITHELIAL CELL,UR 0-2 /HPF; WBC,URINE 0-2 /HPF
[2021-07-31] MEDS ORDERED: NS IV 1000 ML 1,000 ML IV STA (12:14)
[2021-07-31] MEDS ORDERED: KETOROLAC 30 MG/ML VIAL IVP STA (12:14)
--- NOTE | 2021-07-31 12:22 | ED GU-Female ---
General Chief Complaint: - Reproductive Stated Complaint: VAGINAL BLEEDING Nursing Triage Note: 3 DAYS OF HEAVY VAGINAL BLEEDING. REPORTS SHE IS PASSING CLOTS AND SOAKING A TAMPON EVERY 30 MINS. REPORTS IRREGULAR PERIODS FOR 3 YEARS. Source: patient History of Present Illness Date Seen by Provider: Jul 31, 2021 Time Seen by Provider: 12:01 Initial Comments 40-year-old female presenting with complaints of heavy painful vaginal bleeding x3 days. She states that she has been passing clots and having bleeding to the point that she is saturating a three-point every 30 minutes. She just delivered a baby 2-1/2 months ago. She only had some spotting after the delivery but now is having heavy bleeding. She states that she was having some pain in the suprapubic area. She denies any vaginal discharge other than the bleeding. She denies any fever, chills, diarrhea, constipation. She has not been able to reach Dr. Garza, the OB doctor that delivered her baby, and her pcp told her to come to the ED. Timing/Duration: getting worse Severity/Quality: severe, cramping Location: suprapubic Radiation: suprapubic Activities at Onset: none Prior Genitourinary Problems: none Sexual [place] History: less than 2 months ago Associated Symptoms: abdominal pain (suprapubic); No diaphoresis, No dysuria, No fever/chills, No loss of bladder control, No lower back pain, No lumps, No mass, No nausea/vomiting, No nocturia, No polyuria, No swelling, No syncope, No urinary frequency Allergies and Home Medications Allergies Coded Allergies: No Known Drug Allergies (Unverified , 12/10/12) Patient Home Medication List Home Medication List Reviewed: Yes Alprazolam (Xanax) 0.5 Mg Tablet, 1 TAB PO HS PRN, (Reported) Entered as Reported by: ARIANA GLEASON on 12/10/12 0924 Ciprofloxacin HCl (Cipro) 500 Mg Tablet, 500 MG PO BID Prescribed by: VIKTORIA SMITH on 05/27/18 1858 Hydrocodone Bit/Acetaminophen (Lortab 7.5 Mg Tablet) 1 Ea Tablet, 1-2 EA PO Q 4 - 6 HR PRN, (Reported) Entered as Reported by: ARIANA GLEASON on 12/10/12 1502 Medroxyprogesterone Acetate (Provera) 10 Mg Tablet, 10 MG PO DAILY Prescribed by: EVELINA RAMIREZ on 07/31/21 1331 Naproxen Sodium (Naproxen Sodium) 550 Mg Tablet, 550 MG PO BID PRN for pain/inflammation Prescribed by: EVELINA RAMIREZ on 07/31/21 1331 Tramadol HCl (Tramadol HCl) 50 Mg Tablet, 50 MG PO Q8H PRN for PAIN-MILD Prescribed by: VIKTORIA SMITH on 05/27/18 1858 [Sleep Aid] , 1 TAB PO HS, (Reported) Entered as Reported by: ARIANA GLEASON on 12/10/12 0924 Review of Systems Review of Systems Constitutional: No chills; dizziness (light headed at times); No fever EENTM: no symptoms reported Respiratory: no symptoms reported Cardiovascular: no symptoms reported Gastrointestinal: no symptoms reported Genitourinary: see HPI : No Musculoskeletal: no symptoms reported Skin: no symptoms reported Psychiatric/Neurological: No Symptoms Reported Past Muisngo-Dzwgpv-Ddhuao Hx Patient Social History Tobacco Use?: Yes Tobacco type used: Cigarettes Smoking Status: Current Everyday Smoker Use of E-Cig and/or Vaping dev: No Substance use?: Yes Substance type: Marijuana Substance frequency: Daily Alcohol Use?: Yes Alcohol type: Beer Alcohol Frequency: Couple times a week Pt feels they are or have been: Yes Past Medical History Surgeries: Yes (brain (tumor, cysts)) Gallbladder Respiratory: No Cardiac: No 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 oz. 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, alert, normal mood/affect, oriented x 3 Skin: normal color, warm/dry Progress/Results/Core Measures Suspected Sepsis SIRS Temperature: Pulse: 98 Respiratory Rate: 18 Laboratory Tests 07/31/21 12:30: White Blood Count 6.1 Blood Pressure 148 /99 Mean: 115 Laboratory Tests 07/31/21 12:30: Creatinine 0.88, INR Comment 1.0, Platelet Count 265, Total Bilirubin 0.3 Results/Orders Lab Results Laboratory Tests Test 07/31/21 10:57 07/31/21 12:30 Range/Units Urine Color YELLOW Urine Clarity TURBID Urine pH 6.0 5-9 Urine Specific [place] >=1.030 1.016-1.022 Urine Protein NEGATIVE NEGATIVE Urine Glucose (UA) NEGATIVE NEGATIVE Urine Ketones NEGATIVE NEGATIVE Urine Nitrite NEGATIVE NEGATIVE Urine Bilirubin NEGATIVE NEGATIVE Urine Urobilinogen 0.2 < = 1.0 MG/DL Urine Leukocyte Esterase NEGATIVE NEGATIVE Urine RBC (Auto) 3+ H NEGATIVE Urine RBC >100 H /HPF Urine WBC 0-2 /HPF Urine Squamous Epithelial Cells 0-2 /HPF Urine Crystals NONE /LPF Urine Bacteria NEGATIVE /HPF Urine Casts NONE /LPF Urine Mucus SMALL H /LPF Urine Culture Indicated NO White Blood Count 6.1 4.3-11.0 10^3/uL Red Blood Count 3.82 3.80-5.11 10^6/uL Hemoglobin 12.0 11.5-16.0 g/dL Hematocrit 35 35-52 % Mean Corpuscular Volume 93 80-99 fL Mean Corpuscular Hemoglobin 31 25-34 pg Mean Corpuscular Hemoglobin Concent 34 32-36 g/dL Red Cell Distribution Width 11.9 10.0-14.5 % Platelet Count 265 130-400 10^3/uL Mean Platelet Volume 8.9 L 9.0-12.2 fL Immature Granulocyte % (Auto) 0 % Neutrophils (%) (Auto) 48 42-75 % Lymphocytes (%) (Auto) 41 12-44 % Monocytes (%) (Auto) 8 0-12 % Eosinophils (%) (Auto) 2 0-10 % Basophils (%) (Auto) 1 0-10 % Neutrophils # (Auto) 2.9 1.8-7.8 10^3/uL Lymphocytes # (Auto) 2.5 1.0-4.0 10^3/uL Monocytes # (Auto) 0.5 0.0-1.0 10^3/uL Eosinophils # (Auto) 0.1 0.0-0.3 10^3/uL Basophils # (Auto) 0.1 0.0-0.1 10^3/uL Immature Granulocyte # (Auto) 0.0 0.0-0.1 10^3/uL Prothrombin Time 13.5 12.2-14.7 SEC INR Comment 1.0 0.8-1.4 Activated Partial Thromboplast Time 28 24-35 SEC Sodium Level 142 135-145 MMOL/L Potassium Level 4.0 3.6-5.0 MMOL/L Chloride Level 107 98-107 MMOL/L Carbon Dioxide Level 23 21-32 MMOL/L Anion Gap 12 5-14 MMOL/L Blood Urea Nitrogen 13 7-18 MG/DL Creatinine 0.88 0.60-1.30 MG/DL Estimat Glomerular Filtration Rate 85 BUN/Creatinine Ratio 15 Glucose Level 100 70-105 MG/DL Calcium Level 8.7 8.5-10.1 MG/DL Corrected Calcium 8.7 8.5-10.1 MG/DL Total Bilirubin 0.3 0.1-1.0 MG/DL Aspartate Amino Transf (AST/SGOT) 12 5-34 U/L Alanine Aminotransferase (ALT/SGPT) 9 0-55 U/L Alkaline Phosphatase 53 40-136 U/L Total Protein 6.6 6.4-8.2 GM/DL Albumin 4.0 3.2-4.5 GM/DL Lipase 19 8-78 U/L Human Chorionic Gonadotropin, Quant < 5 <5 MIU/ML My Orders Orders - EVELINA RAMIREZ MD Ua Culture If Indicated (07/31/21 10:54) Urine Bedside (07/31/21 10:54) Comprehensive Metabolic Panel (07/31/21 12:14) Lipase (07/31/21 12:14) Ed Iv/Invasive Line Start (07/31/21 12:14) Cbc With Automated Diff (07/31/21 12:14) Protime With Inr (07/31/21 12:14) Partial Thromboplastin Time (07/31/21 12:14) Hcg,Quantitative (07/31/21 12:14) Us Non Ob Pelvis Comp/Transvag (07/31/21 12:14) Ns Iv 1000 Ml (Sodium Chloride 0.9%) (07/31/21 12:14) Ketorolac Injection (Toradol Injection) (07/31/21 12:14) Vital Signs/I&O 07/31/21 07/31/21 11:03 13:36 Temp 36.5 36.5 Pulse 98 98 Resp 18 18 B/P (MAP) 148/99 (115) 148/99 Pulse Ox 98 98 O2 Delivery Room Air Room Air Capillary Refill : Less Than 3 Seconds Blood Pressure Mean: 115 Progress Note #1: Progress Note Urinalysis does show blood but no definite signs of infection. Will obtain basic labs and look at her blood count as well as give some IV fluids. Obtain ultrasound to look for other reasons of her heavy bleeding. Progress Note #2: Progress Note Labs appear stable with normal white blood cell count and hemoglobin of 12. Her chemistry did not show any acute significant normality. Her ultrasound showed an ovarian cyst on the left but no fibroids or uterine abnormalities to account for her bleeding. Discussed with Dr. Garza and he recommended giving Provera 10 mg a day for 14 days and to follow-up with him for further concerns Diagnostic Imaging Diagonstic Imaging: Ultrasound Plain Films/CT/US/NM/MRI: pelvis Comments [facility] [place] NAME: ANDIESHARAD J C [facility] REC#: [id number] PT STATUS: DEP ER : 1980 PHYSICIAN: EVELINA RAMIREZ MD ADMIT DATE: 07/31/21/ER FS Signed Date of Exam:07/31/21 US NON OB PELVIS COMP/TRANSVAG PROCEDURE: Pelvic comp/transvaginal sonogram. TECHNIQUE: Complete transabdominal and transvaginal pelvic ultrasound was performed. In addition, limited pelvic Doppler was performed. INDICATION: Heavy menses. FINDINGS: The uterus measures 8.0 x 5.2 x 4.8 cm. The endometrium is approximately 9 mm in thickness. No myometrial mass is detected. The right ovary measures 1.6 x 1.3 x 1.2 cm and the left ovary measures 5.6 x 4.0 x 3.1 cm. The left ovary does contain a 4.1 x 3.7 x 2.8 cm cyst. The cyst does contain some internal septations which are nonvascular. No nodularity is seen. There is blood flow to the ovaries. No adnexal mass or free fluid is detected. IMPRESSION: 4 cm complex left ovarian cyst. Followup pelvic ultrasound in 6-8 weeks to confirm resolution is recommended. The study is otherwise unremarkable. Dictated by: Dictated on workstation # [id number] Dict: 07/31/21 1310 Trans: 07/31/21 1536 [id number] Interpreted by: SHAUNNA ORTEGA MD Electronically signed by: SHAUNNA ORTEGA MD 07/31/21 1536 Reviewed: Reviewed by Me Departure Impression Primary Impression: Metrorrhagia Additional Impressions: Menorrhagia Qualified Codes: N92.1 - Excessive and frequent menstruation with irregular cycle Ovarian cyst Qualified Codes: N83.202 - Unspecified ovarian cyst, left side Disposition: 01 HOME, SELF-CARE Condition: Stable Departure-Patient Inst. Decision time for Depature: 13:27 Referrals: MARTA CHAMPAGNE MD (PCP) Primary Care Physician JULY GARZA DO Patient Instructions: Heavy Periods ED Add. Discharge Instructions: Take the Provera 10 mg a day for next 2 weeks to help stop the bleeding. Use the Naproxen to help with pain and inflammation. Check back with Dr. Garza if having more problems or not improving with treatment and taking the Provera. All discharge instructions reviewed with patient and/or family. Voiced understanding. Scripts Naproxen Sodium (Naproxen Sodium) 550 Mg Tablet 550 MG PO BID PRN for pain/inflammation for 14 Days, #28 TAB 0 Refills Prov: EVELINA RAMIREZ MD 07/31/21 Medroxyprogesterone Acetate (Provera) 10 Mg Tablet 10 MG PO DAILY for Heavy Bleeding for 14 Days, #14 TAB 0 Refills Prov: EVELINA RAMIREZ MD 07/31/21 EVELINA RAMIREZ MD Jul 31, 2021 12:22
[2021-07-31 12:41] LABS: BASOPHILS # (AUTO) 0.1 10^3/uL (0.0-0.1); BASOPHILS % (AUTO) 1 % (0-10); EOSINOPHILS # (AUTO) 0.1 10^3/uL (0.0-0.3); EOSINOPHILS % (AUTO) 2 % (0-10); HEMATOCRIT 35 % (35-52); LYMPHOCYTES # (AUTO) 2.5 10^3/uL (1.0-4.0); LYMPHOCYTES % (AUTO) 41 % (12-44); MEAN CORPUSCULAR HEMOGLOBIN 31 pg (25-34); MEAN CORPUSCULAR HGB CONC 34 g/dL (32-36); MEAN CORPUSCULAR VOLUME 93 fL (80-99); MEAN PLATELET VOLUME 8.9 fL (9.0-12.2); MONOCYTES # (AUTO) 0.5 10^3/uL (0.0-1.0); MONOCYTES % (AUTO) 8 % (0-12); NEUTROPHILS # (AUTO) 2.9 10^3/uL (1.8-7.8); NEUTROPHILS % (AUTO) 48 % (42-75); PLATELET COUNT 265 10^3/uL (130-400); WHITE BLOOD COUNT 6.1 10^3/uL (4.3-11.0)
[2021-07-31 12:58] LABS: PROTHROMBIN TIME PATIENT 13.5 SEC (12.2-14.7)
--- NOTE | 2021-07-31 13:15 | Diagnostic Imaging Report ---
PROCEDURE: Pelvic comp/transvaginal sonogram. TECHNIQUE: Complete transabdominal and transvaginal pelvic ultrasound was performed. In addition, limited pelvic Doppler was performed. INDICATION: Heavy menses. FINDINGS: The uterus measures 8.0 x 5.2 x 4.8 cm. The endometrium is approximately 9 mm in thickness. No myometrial mass is detected. The right ovary measures 1.6 x 1.3 x 1.2 cm and the left ovary measures 5.6 x 4.0 x 3.1 cm. The left ovary does contain a 4.1 x 3.7 x 2.8 cm cyst. The cyst does contain some internal septations which are nonvascular. No nodularity is seen. There is blood flow to the ovaries. No adnexal mass or free fluid is detected. IMPRESSION: 4 cm complex left ovarian cyst. Followup pelvic ultrasound in 6-8 weeks to confirm resolution is recommended. The study is otherwise unremarkable. Dictated by: Dictated on workstation # [id number]
[2021-07-31 13:17] LABS: CARBON DIOXIDE 23 MMOL/L (21-32); CHLORIDE 107 MMOL/L (98-107); SODIUM 142 MMOL/L (135-145)
[2021-07-31 13:18] LABS: ALANINE AMINOTRANSFERASE 9 U/L (0-55); ALKALINE PHOSPHATASE 53 U/L (40-136); BILIRUBIN,TOTAL 0.3 MG/DL (0.1-1.0); BUN/CREATININE RATIO 15; CALCIUM 8.7 MG/DL (8.5-10.1); CREATININE SERUM 0.88 MG/DL (0.60-1.30); GFR ESTIMATED 85; GLUCOSE 100 MG/DL (70-105); LIPASE 19 U/L (8-78); TOTAL PROTEIN 6.6 GM/DL (6.4-8.2)
[2021-07-31] MEDS ORDERED: NAPR-1067 PO (13:31)
[2021-07-31] MEDS ORDERED: MEDR10TA PO (13:31)
[2021-07-31 13:36] VITALS: BP 148/99
== END 2021-07-31 13:41 | disposition home or self-care (01) ==
LOC: EDUNIT# 10:46 → ER FS 10:49
DX: N92.1 Excessive and frequent menstruation with irregular cycle (principal); N92.0 Excessive and frequent menstruation with regular cycle; N83.202 Unspecified ovarian cyst, left side; F17.210 Nicotine dependence, cigarettes, uncomplicated
CPT/HCPCS: 36415; 76830; 76856; 80053; 81000; 83690; 84702; 85025; 85610; 85730

== ENCOUNTER 2021-08-11 15:30 | Emergency (ER) | payer OTHER, MEDICAID ==
[~2021-08-11] VITALS: Ht 172.7 cm; Wt 96.0 kg
[~2021-08-11 15:30] MED LIST changes: +MEDR10TA PO; +NAPR-1067 PO
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
[2021-08-11 16:44] VITALS: BP 129/74
== END 2021-08-11 16:44 | disposition home or self-care (01) ==
LOC: EDUNIT# 15:30 → ER FS 15:32
DX: S29.011A Strain of muscle and tendon of front wall of thorax, initial encounter (principal); M94.0 Chondrocostal junction syndrome [Tietze]; F17.210 Nicotine dependence, cigarettes, uncomplicated; V89.2XXA Person injured in unspecified motor-vehicle accident, traffic, initial encounter
CPT/HCPCS: 71111

== ENCOUNTER 2021-11-27 17:14 | Emergency (ER) | payer OTHER, MEDICAID ==
[~2021-11-27] VITALS: Ht 172 cm; Wt 87.0 kg
[2021-11-27 17:24] VITALS: BP 141/91
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
[2021-11-27] MEDS ORDERED: IBUPROFEN 600 MG (MOTRIN) TAB PO ONE (17:45)
--- NOTE | 2021-11-27 18:05 | Diagnostic Imaging Report ---
INDICATION: Neck pain. EXAMINATION: Cervical spine. FINDINGS: AP and lateral views of the cervical spine show normal vertebral body height and alignment. Disc spaces are normal. Odontoid is intact. Atlantoaxial relationship is normal. IMPRESSION: Negative cervical spine. Dictated by: Dictated on workstation # [id number]
== END 2021-11-27 18:20 | disposition home or self-care (01) ==
LOC: EDUNIT# 17:14 → ER FS 17:15
DX: S13.4XXA Sprain of ligaments of cervical spine, initial encounter (principal); M62.830 Muscle spasm of back; F17.210 Nicotine dependence, cigarettes, uncomplicated; V49.40XA Driver injured in collision with unspecified motor vehicles in traffic accident, initial encounter; Y92.410 Unspecified street and highway as the place of occurrence of the external cause
CPT/HCPCS: 72040